=== PATIENT | female | born 1940 | race African-American/Black ===

== ENCOUNTER 2017-04-03 14:43 | Emergency (ER) | payer MEDICARE ==
[2017-04-03 17:36] LABS: Hematocrit 33 % (35-47); Hemoglobin 10.6 g/dl (12.0-16.0); Mean Corpuscular HGB Conc 32 g/dl (31-36); Mean Corpuscular Hemoglobin 29 pg (27-31); Mean Corpuscular Volume 91 fL (80-97); Mean Platelet Volume 11 um3 (7.4-10.4); Red Blood Count 3.62 10^6/ul (4.0-5.4); Red Cell Distribution Width 14 % (10.5-15); White Blood Count 8.4 10^3/ul (3.5-10.8)
[2017-04-03 17:52] LABS: Albumin 3.7 g/dL (3.2-5.2); BUN/Creatinine Ratio 12.4 (8-20); Calcium 9.2 mg/dL (8.6-10.3); EGFR African American 48.3 (>60); EGFR Non-African American 37.6 (>60); Globulin 2.5 g/dL (2-4); Potassium 4.2 mmol/L (3.5-5.0); Total Bilirubin 0.3 mg/dL (0.2-1.0); Total Protein 6.2 g/dL (6.4-8.9)
[2017-04-03] MEDS ORDERED: Lisinopril TAB* 10 MG PO ONE (18:32)
[2017-04-03 19:56] VITALS: BP 165/76
--- NOTE | 2017-04-04 18:14 | ED ---
Deloris Mcmahan Edward, scribed for Ilia Luciano MD on 04/03/17 at 1714 . Hypertension - HPI Summary HPI Summary: 76 y/o female presents to ED with hypertension. Earlier today, an insurance nurse measured her BP to be 180/90, waited, then measured it again to be 200/ 105 and referred the patient to the ED. Assoc sx: blurred vision. Denies ROMERO, ABD pain, diarrhea, dizziness, CP, palpations, constipation, SOB, N/V. Patient is asymptomatic currently. FHx HTN and DM. Patient lives in [facility], an apartment for the elderly. - History of Current Complaint Chief Complaint: EDGeneral Stated Complaint: high blood pressure Time Seen by Provider: 04/03/17 16:06 Hx Obtained From: Patient Onset/Duration: Started Hours Ago - Earlier today Associated Signs & Symptoms: Other: - Blurred visions - Allergies/Home Medications Allergies/Adverse Reactions: Allergies Allergy/AdvReac Type Severity Reaction Status Date / Time Clopidogrel [From Plavix] Allergy Unknown Unknown Verified 11/25/16 13:22 Reaction Details Home Medications: Home Medications Albuterol Sulfate [Proair Respiclick] 2 puff INH Q4HR PRN 04/03/17 [History Confirmed 04/03/17] Colchicine* [Colcrys*] 0.6 mg PO DAILY 04/03/17 [History Confirmed 04/03/17] Darbepoetin Alec* [Aranesp Albumin Free*] 60 mcg INJ MONTHLY 04/03/17 [History Confirmed 04/03/17] Diclofenac Sodium (Topical) [Diclofenac Sodium] 1.5 % TOPICAL BID PRN 04/03/17 [ History Confirmed 04/03/17] Doxycycline TAB(NF) [Doxycycline (NF)] 50 mg PO BID 04/03/17 [History Confirmed 04/03/17] Ferrous Sulfate TAB* 325 mg PO BID 04/03/17 [History Confirmed 04/03/17] Fluticasone-Salmeterol 250-50* [Advair Diskus 250-50*] 1 puff INH BID 04/03/17 [ History Confirmed 04/03/17] Hydroxychloroquine TAB* [Plaquenil TAB*] 200 mg PO DAILY 04/03/17 [History Confirmed 04/03/17] Insulin Lispro [Humalog Kwikpen] 3 - 6 units SUBCUT 1200 04/03/17 [History Confirmed 04/03/17] Insulin Lispro [Humalog Kwikpen] 6 - 8 units SUBCUT .AT DINNER 04/03/17 [ History Confirmed 04/03/17] Insulin NPH (Human) (Isophane) [Humulin N Kwikpen] 20 unit SUBCUT QPM 04/03/17 [ History Confirmed 04/03/17] Insulin NPH (Human) (Isophane) [Humulin N Kwikpen] 25 unit SUBCUT QAM 04/03/17 [ History Confirmed 04/03/17] Lisinopril TAB* [Prinivil TAB*] 10 mg PO DAILY 04/03/17 [History Confirmed 04/03] Mometasone Furoate [Elocon] 0.1 % TOPICAL TID PRN 04/03/17 [History Confirmed ] Oxybutynin TAB* [Ditropan TAB*] 10 mg PO DAILY 04/03/17 [History Confirmed 04/03] Ranitidine TAB (NF) [Zantac TAB (NF)] 300 mg PO DAILY 04/03/17 [History Confirmed 04/03/17] PMH/Surg Hx/FS Hx/Imm Hx Previously Healthy: No Endocrine/Hematology History: Reports: Hx Anticoagulant Therapy - aggrenox, Hx Diabetes, Hx Anemia Denies: Hx Thyroid Disease Cardiovascular History: Reports: Hx Angina, Hx Hypertension, Hx Peripheral Vascular Disease, Other Cardiovascular Problems/Disorders - "bleeding around my heart" Denies: Hx Coronary Artery Disease, Hx Hypercholesterolemia, Hx Myocardial Infarction, Hx Pacemaker/ICD, Hx Valvular Heart Disease Respiratory History: Reports: Hx Asthma, Hx Pulmonary Embolism, Hx Sleep Apnea, Other Respiratory Problems/Disorders Denies: Hx Chronic Obstructive Pulmonary Disease (COPD) GI History: Denies: Hx Ulcer History: Reports: Other Problems/Disorders - KIDNEY DISEASE Musculoskeletal History: Reports: Hx Arthritis - OSTEOARTHRITIS, Hx Rheumatoid Arthritis, Hx Back Problems - low back pain Sensory History: Reports: Hx Contacts or Glasses Denies: Hx Hearing Aid Opthamlomology History: Reports: Hx Contacts or Glasses Neurological History: Reports: Hx Headaches Psychiatric History: Denies: Hx Panic Disorder - Cancer History Hx Chemotherapy: No Hx Radiation Therapy: No - Surgical History Surgery Procedure, Year, and Place: R TKR, LOWER BACK SURGERY, UPPER BACK SURGERY, HYSTERECTOMY, BILAT CATARACS,. CARPAL TUNNEL, ABDOMINAL TUMOR REMOVED , R PINKY TOE I AND D, THORACENTESIS March, CARDIAC CATHERIZATION 04/29, NASAL SURGERY JUL 2012 Hx Anesthesia Reactions: No Infectious Disease History: No Infectious Disease History: Denies: Hx Hepatitis, Hx Human Immunodeficiency Virus (HIV), History Other Infectious Disease, Traveled Outside the [place] in Last 30 Days - Family History Known Family History: Positive: Hypertension - Mother's side, Diabetes - Father' s side - Social History Occupation: Retired Lives: At [facility] [employer] - apartment for the elderly Alcohol Use: None Substance Use Type: Reports: None Smoking Status (MU): Never Smoked Tobacco Have You Smoked in the Last Year: No Review of Systems Constitutional: Negative Positive: Blurred Vision ENT: Negative Cardiovascular: Negative Negative: Palpitations, Chest Pain Respiratory: Negative Negative: Shortness Of Breath Gastrointestinal: Negative Positive: Other - negative constipation. Negative: Abdominal Pain, Vomiting, Diarrhea, Nausea Genitourinary: Negative Musculoskeletal: Negative Skin: Negative Neurological: Negative, Other - Negative dizziness Negative: Headache Psychological: Normal All Other Systems Reviewed And Are Negative: Yes Physical Exam - Summary Physical Exam Summary: VITAL SIGNS:~Reviewed. GENERAL:~ Patient is an obese female who is lying comfortable in the stretcher. ~ Patient is not in any acute respiratory distress. HEAD AND FACE:~No signs of trauma.~ No ecchymosis, hematomas or skull depressions. No sinus tenderness. EYES:~PERRLA, EOMI x 2, No injected conjunctiva, no nystagmus. EARS:~Hearing grossly intact. Ear canals and tympanic membranes are within normal limits. MOUTH:~Oropharynx within normal limits. NECK:~Supple, trachea is midline, no adenopathy, no JVD, no carotid bruit, no c- spine tenderness, neck with full ROM. CHEST:~Symmetric, no tenderness at palpation LUNGS:~Clear to auscultation bilaterally. No wheezing or crackles. CVS:~Regular rate and rhythm, S1 and S2 present, no murmurs or gallops appreciated. ABDOMEN:~Soft, non-tender. No signs of distention. No rebound no guarding, and no masses palpated. Bowel sounds are normal. EXTREMITIES:~FROM in all major joints, no edema, no cyanosis or clubbing. NEURO:~Alert and oriented x 3. No acute neurological deficits. Speech is normal and follows commands. SKIN:~Dry and warm Triage Information Reviewed: Yes Vital Signs On Initial Exam: Initial Vitals Temp Pulse Resp BP Pulse Ox 97.5 F 69 20 160/66 100 04/03/17 14:45 04/03/17 14:45 04/03/17 14:45 04/03/17 14:45 04/03/17 14:45 Vital Signs Reviewed: Yes - Franny Coma Scale Coma Scale Total: 15 Diagnostics - Vital Signs Vital Signs Temp Pulse Resp BP Pulse Ox 04/03/17 14:50 97.3 F 68 20 160/66 100 04/03/17 14:45 97.5 F 69 20 160/66 100 - Laboratory Lab Results: Lab Results 04/03/17 04/03/17 Range/Units 17:15 17:15 WBC 8.4 (3.5-10.8) 10^3/ul RBC 3.62 L (4.0-5.4) 10^6/ul Hgb 10.6 L (12.0-16.0) g/dl Hct 33 L (35-47) % MCV 91 (80-97) fL MCH 29 (27-31) pg MCHC 32 (31-36) g/dl RDW 14 (10.5-15) % Plt Count 150 (150-450) 10^3/ul MPV 11 H (7.4-10.4) um3 Neut % (Auto) 63.9 (38-83) % Lymph % (Auto) 17.5 L (25-47) % [place] % (Auto) 13.3 H (1-9) % Eos % (Auto) 4.5 (0-6) % Baso % (Auto) 0.8 (0-2) % Absolute Neuts (auto) 5.4 (1.5-7.7) 10^3/ul Absolute Lymphs (auto) 1.5 (1.0-4.8) 10^3/ul Absolute Monos (auto) 1.1 H (0-0.8) 10^3/ul Absolute Eos (auto) 0.4 (0-0.6) 10^3/ul Absolute Basos (auto) 0.1 (0-0.2) 10^3/ul Absolute Nucleated RBC 0.01 10^3/ul Nucleated RBC % 0.1 Sodium 136 (133-145) mmol/L Potassium 4.2 (3.5-5.0) mmol/L Chloride 103 (101-111) mmol/L Carbon Dioxide 30 (22-32) mmol/L Anion Gap 3 (2-11) mmol/L BUN 17 (6-24) mg/dL Creatinine 1.37 H (0.51-0.95) mg/dL Est GFR ( Amer) 48.3 (>60) Est GFR (Non-Af Amer) 37.6 (>60) BUN/Creatinine Ratio 12.4 (8-20) Glucose 98 (70-100) mg/dL Calcium 9.2 (8.6-10.3) mg/dL Total Bilirubin 0.30 (0.2-1.0) mg/dL AST 12 L (13-39) U/L ALT 7 (7-52) U/L Alkaline Phosphatase 65 (34-104) U/L Total Protein 6.2 L (6.4-8.9) g/dL Albumin 3.7 (3.2-5.2) g/dL Globulin 2.5 (2-4) g/dL Albumin/Globulin Ratio 1.5 (1-3) Result Diagrams: 04/03/17 17:15 04/03/17 17:15 Lab Statement: Any lab studies that have been ordered have been reviewed, and results considered in the medical decision making process. - EKG 1 EKG Interpretation: 14:56 - NSR @ 66 bpm, no ST elevations Hypertension Course/Dx - Course Assessment/Plan: 76 y/o female presents to ED with hypertension. Earlier today, an insurance nurse measured her BP to be 180/90, waited, then measured it again to be 200/105 and referred the patient to the ED. Assoc sx: blurred vision. Denies ROMERO, ABD pain, diarrhea, dizziness, CP, palpations, constipation, SOB, N/ V. Patient is asymptomatic currently. FHx HTN and DM. Patient lives in [facility], an apartment for the elderly. Test results show chronic anemia and chronic elevated creatinine of 1.37. EKG shows NSR with no ST elevation. In the ED course, BP remained at baseline. Patient has no complaints and is asymptomatic. She will be discharged home with a follow up with her PCP. For better control of BP, she was given 1 dose of Lisinopril. I discussed all the findings and test results with the patient. Patient was instructed to return to the emergency room immediately if any of the symptoms return or worsens. Plan of care was discussed with the patient and understands and agrees. All questions were answered at patient satisfaction. There were no further complaints or concerns. Lung exam before discharge: CTA B/L. Good air exchange. No wheezing or crackles heard. CVS: S1 and S2 present. No murmurs appreciated. Patient is alert and oriented x 3. Patient is hemodynamically stable. Patient will be discharged home with follow up PCP in the next 2-3 days - Diagnoses Differential Diagnosis/HQI PQRI: Hypertension Provider Diagnoses: Uncontrolled hypertension Discharge - Discharge Plan Condition: Stable Disposition: HOME Patient Education Materials: Hypertension (ED) Referrals: Virgilio Zuleta MD [Primary Care Provider] - 3 Days The documentation as recorded by the Deloris vasquez Edward accurately reflects the service I personally performed and the decisions made by me, Ilia Luciano MD.
== END 2017-04-03 19:30 | disposition home or self-care (01) ==
LOC: ED 14:43
DX: I10 Essential (primary) hypertension (principal); I73.9 Peripheral vascular disease, unspecified; Z79.01 Long term (current) use of anticoagulants; M06.9 Rheumatoid arthritis, unspecified; M19.90 Unspecified osteoarthritis, unspecified site; J45.909 Unspecified asthma, uncomplicated; Z79.4 Long term (current) use of insulin; E11.9 Type 2 diabetes mellitus without complications
CPT/HCPCS: 36415; 80053; 85025; 93005; 99281; A9270-GY

== ENCOUNTER 2017-05-19 16:09 | Emergency (ER) | payer MEDICARE ==
[2017-05-19] MEDS ORDERED: Aspirin Low Dose CHEW TAB* 81 MG PO ONE (17:43)
--- NOTE | 2017-05-19 18:08 | RAD ---
INDICATION: Chest pain COMPARISON: January 27, 2016 TECHNIQUE: An AP portable view obtained at 1743 hours is submitted. FINDINGS: Bones/Soft Tissues: There are no acute bony findings. Cardiomediastinal: The cardiomediastinal silhouette is normal. Lungs: There are no infiltrates. Pleura: There are no pleural effusions. Other: None IMPRESSION: NO ACTIVE DISEASE.
--- NOTE | 2017-05-19 18:16 | ED ---
Deloris Mcmahan Edward, scribed for Juliana Fitzgerald MD on 05/19/17 at 1733 . HPI Chest Pain - HPI Summary HPI Summary: 76 y/o female presents to ED c/o severe CP starting last night. Last night the CP was located on the L side and did not radiate to the jaw or the back. Patient also gets chronic, daily CP in the morning located at the mid-sternal region. Her last bout of CP was at 09:00 this morning. The CP has resolved now. Associated sx: chronic cough. Denies fever, chills. PMHx HTN, HLD, and DM. No previous WY's. No FHx WY's. live alone. former smoke, HTN, HLD, DM. No previous WY. No Stents. FHx - no WY. Last stress test within 2 years. - History of Current Complaint Chief Complaint: EDChestPainROMI Time Seen by Provider: 05/19/17 17:21 Hx Obtained From: Patient Onset/Duration: Started Hours Ago - This morning and last night, Resolved Pain Intensity: 0 Chest Pain Radiates: No Associated Signs and Symptoms: Positive: Chest Pain, Cough - chronic. Negative : Fever, Chills - Additional Pertinent History Primary Care Physician: [id number] - Allergy/Home Medications Allergies/Adverse Reactions: Allergies Allergy/AdvReac Type Severity Reaction Status Date / Time Clopidogrel [From Plavix] Allergy Unknown Unknown Verified 11/25/16 13:22 Reaction Details PMH/Surg Hx/FS Hx/Imm Hx Previously Healthy: No Endocrine/Hematology History: Reports: Hx Anticoagulant Therapy - aggrenox, Hx Diabetes, Hx Anemia Denies: Hx Thyroid Disease Cardiovascular History: Reports: Hx Angina, Hx Hypertension, Hx Peripheral Vascular Disease, Other Cardiovascular Problems/Disorders - "bleeding around my heart" Denies: Hx Coronary Artery Disease, Hx Hypercholesterolemia, Hx Myocardial Infarction, Hx Pacemaker/ICD, Hx Valvular Heart Disease Respiratory History: Reports: Hx Asthma, Hx Pulmonary Embolism, Hx Sleep Apnea, Other Respiratory Problems/Disorders Denies: Hx Chronic Obstructive Pulmonary Disease (COPD) GI History: Denies: Hx Ulcer History: Reports: Other Problems/Disorders - KIDNEY DISEASE Musculoskeletal History: Reports: Hx Arthritis - OSTEOARTHRITIS, Hx Rheumatoid Arthritis, Hx Back Problems - low back pain Sensory History: Reports: Hx Contacts or Glasses Denies: Hx Hearing Aid Opthamlomology History: Reports: Hx Contacts or Glasses Neurological History: Reports: Hx Headaches Psychiatric History: Denies: Hx Panic Disorder - Cancer History Hx Chemotherapy: No Hx Radiation Therapy: No - Surgical History Surgery Procedure, Year, and Place: R TKR, LOWER BACK SURGERY, UPPER BACK SURGERY, HYSTERECTOMY, BILAT CATARACS,. CARPAL TUNNEL, ABDOMINAL TUMOR REMOVED , R PINKY TOE I AND D, THORACENTESIS March, CARDIAC CATHERIZATION 04/29, NASAL SURGERY JUL 2012 Hx Anesthesia Reactions: No Infectious Disease History: No Infectious Disease History: Denies: Hx Hepatitis, Hx Human Immunodeficiency Virus (HIV), History Other Infectious Disease, Traveled Outside the [place] in Last 30 Days - Family History Known Family History: Positive: Hypertension - Mother's side, Diabetes - Father' s side - Social History Lives: Alone Alcohol Use: None Hx Substance Use: No Substance Use Type: Reports: Prescribed Hx Tobacco Use: Yes Smoking Status (MU): Former Smoker Type: Cigarettes Have You Smoked in the Last Year: No Review of Systems Constitutional: Negative Eyes: Negative ENT: Negative Positive: Chest Pain Positive: Cough - chronic Gastrointestinal: Negative Genitourinary: Negative Musculoskeletal: Negative Skin: Negative Neurological: Negative Psychological: Normal All Other Systems Reviewed And Are Negative: Yes Physical Exam Triage Information Reviewed: Yes Vital Signs On Initial Exam: Initial Vitals Temp Pulse Resp BP Pulse Ox 98.2 F 65 20 177/73 97 05/19/17 16:10 05/19/17 16:10 05/19/17 16:10 05/19/17 16:10 05/19/17 16:10 Vital Signs Reviewed: Yes Appearance: Positive: Well-Appearing, No Pain Distress Skin: Positive: Warm, Skin Color Reflects Adequate Perfusion, Dry Eyes: Positive: EOMI, KEYA ENT: Positive: Pharynx normal, TMs normal Neck: Positive: Supple, Nontender Respiratory/Lung Sounds: Positive: Clear to Auscultation, Breath Sounds Present. Negative: Rales, Rhonchi, Wheezes Cardiovascular: Positive: RRR. Negative: Murmur, Rub, Other - no gallop Abdomen Description: Positive: Nontender, Soft. Negative: Distended, Guarding, Other: - no rebound Bowel Sounds: Positive: Present Musculoskeletal: Positive: Strength/ROM Intact. Negative: Edema Left, Edema Right Neurological: Positive: Sensory/Motor Intact, Alert, Oriented to Person Place, Time, CN Intact II-III Psychiatric: Positive: Affect/Mood Appropriate Diagnostics - Vital Signs Vital Signs Temp Pulse Resp BP Pulse Ox 05/19/17 16:59 98.1 F 66 16 177/73 98 05/19/17 16:10 98.2 F 65 20 177/73 97 - Laboratory Lab Statement: Any lab studies that have been ordered have been reviewed, and results considered in the medical decision making process. - Radiology CXR Xray Interpretation: No Acute Changes - NO ACTIVE DISEASE Radiology Interpretation Completed By: Radiologist - EKG 1 EKG Rhythm: Sinus Rhythm - @ 64 bpm EKG Interpretation: 16:30 EKG Comparison: No Significant Change - 04/03/17 Chest Pain Course/Dx - Course Course Of Treatment: 76 yo female with cp overnight and at 8am this morning. Pt is awaiting a trop which at this point is at least 10 hours, if neg, she gets regular stress tests and is safe for discharge. - Diagnoses Provider Diagnoses: Chest pain Discharge - Discharge Plan Condition: Stable Disposition: OTHER Discharge Disposition Comment: to be determined The documentation as recorded by the Deloris vasquez Edward accurately reflects the service I personally performed and the decisions made by me, Juliana Fitzgerald MD.
[2017-05-19 19:43] LABS: Hematocrit 31 % (35-47); Hemoglobin 10.1 g/dl (12.0-16.0); Mean Corpuscular HGB Conc 33 g/dl (31-36); Mean Corpuscular Hemoglobin 31 pg (27-31); Mean Corpuscular Volume 93 fL (80-97); Mean Platelet Volume 10 um3 (7.4-10.4); Red Blood Count 3.32 10^6/ul (4.0-5.4); Red Cell Distribution Width 15 % (10.5-15); White Blood Count 7.9 10^3/ul (3.5-10.8)
[2017-05-19 19:47] LABS: Anion Gap 11 mmol/L (2-11); EGFR African American 51.4 (>60); EGFR Non-African American 39.9 (>60); POC CO2 Carbon Dioxide 28 mmol/L (24-29); POC Chloride 102 mmol/L (98-109); POC Glucose 132 mg/dL (70-105); POC Sodium 141 mmol/L (138-146)
[2017-05-19 19:49] LABS: Manual Entry Verification CAR0052
[2017-05-19 20:01] LABS: Troponin I 0.01 ng/mL (<0.04)
[2017-05-19 21:41] VITALS: BP 195/63
[2017-05-19 22:12] LABS: Albumin 3.4 g/dL (3.2-5.2); BUN/Creatinine Ratio 10.7 (8-20); Calcium 8.8 mg/dL (8.6-10.3); EGFR African American 55.3 (>60); Globulin 2.5 g/dL (2-4); Total Bilirubin 0.3 mg/dL (0.2-1.0); Total Protein 5.9 g/dL (6.4-8.9)
== END 2017-05-19 21:41 ==
LOC: ED 16:09
DX: R07.9 Chest pain, unspecified (principal); M06.9 Rheumatoid arthritis, unspecified; I10 Essential (primary) hypertension; I25.2 Old myocardial infarction; Z95.810 Presence of automatic (implantable) cardiac defibrillator; Z87.891 Personal history of nicotine dependence
CPT/HCPCS: 36415; 71010; 80048; 80053; 83605; 84484; 85025; 93005; 99283

== ENCOUNTER 2019-01-02 08:26 | Emergency (ER) | payer MEDICARE ==
[2019-01-02] MEDS ORDERED: Acetaminophen TAB* 325 MG PO ONE (08:35)
--- NOTE | 2019-01-02 09:04 | ED ---
Adult Trauma - HPI Summary HPI Summary: Patient is a 78-year-old female who lives alone presenting to the ED after a fall this morning while attempting to use the restroom. She states she usually uses a walker at home, however she did not use her walker. She states she called EMS because she was unable to get up to go to the bathroom. On arrival, she states she did not hit her head, denies headache and denies any other injuries. She denies any confusion, memory loss, abdominal pain or extremity pain. She states she has not been sick recently. She states she gets around well at home typically prior self, however her son and her are looking into assisted for her. She states she recalls the fall and denies LOC. - History of Current Complaint Chief Complaint: EDExtremityLower Stated Complaint: PER EMT "FELL" Time Seen by Provider: 01/02/19 08:30 Hx Obtained From: Patient ?: No Mechanism of Injury: Blunt Trauma Ambulatory at the Scene: No Force: Low Onset/Duration: Started Hours Ago Onset of Pain: Immediate Onset Severity: Mild Current Severity: Mild Pain Intensity: 7 Character: Aching Alleviating Factor(s): Nothing Associated Signs & Symptoms: Positive: Negative - Additional Pertinent History Primary Care Physician: [id number] - Allergy/Home Medications Allergies/Adverse Reactions: Allergies Allergy/AdvReac Type Severity Reaction Status Date / Time clopidogrel [From Plavix] Allergy Unknown Verified 01/02/19 08:31 Reaction Details PMH/Surg Hx/FS Hx/Imm Hx Previously Healthy: Yes Endocrine/Hematology History: Reports: Hx Anticoagulant Therapy - aggrenox, Hx Diabetes, Hx Anemia Denies: Hx Thyroid Disease Cardiovascular History: Reports: Hx Angina, Hx Hypertension, Hx Peripheral Vascular Disease, Other Cardiovascular Problems/Disorders - "bleeding around my heart" Denies: Hx Coronary Artery Disease, Hx Hypercholesterolemia, Hx Myocardial Infarction, Hx Pacemaker/ICD, Hx Valvular Heart Disease Respiratory History: Reports: Hx Asthma, Hx Pulmonary Embolism, Hx Sleep Apnea, Other Respiratory Problems/Disorders Denies: Hx Chronic Obstructive Pulmonary Disease (COPD) GI History: Denies: Hx Ulcer History: Reports: Other Problems/Disorders - KIDNEY DISEASE Musculoskeletal History: Reports: Hx Arthritis - OSTEOARTHRITIS, Hx Rheumatoid Arthritis, Hx Back Problems - low back pain Sensory History: Reports: Hx Contacts or Glasses Denies: Hx Hearing Aid Opthamlomology History: Reports: Hx Contacts or Glasses Neurological History: Reports: Hx Headaches Psychiatric History: Denies: Hx Panic Disorder - Cancer History Hx Chemotherapy: No Hx Radiation Therapy: No - Surgical History Surgery Procedure, Year, and Place: R TKR, LOWER BACK SURGERY, UPPER BACK SURGERY, HYSTERECTOMY, BILAT CATARACS,. CARPAL TUNNEL, ABDOMINAL TUMOR REMOVED , R PINKY TOE I AND D, THORACENTESIS March, CARDIAC CATHERIZATION 04/29, NASAL SURGERY JUL 2012 Hx Anesthesia Reactions: No - Immunization History Hx Pertussis Vaccination: No Immunizations Up to Date: Yes Infectious Disease History: No Infectious Disease History: Denies: Hx Hepatitis, Hx Human Immunodeficiency Virus (HIV), History Other Infectious Disease, Traveled Outside the [place] in Last 30 Days - Family History Known Family History: Positive: Hypertension - Mother's side, Diabetes - Father' s side - Social History Occupation: Unemployed Lives: Alone Alcohol Use: None Hx Substance Use: No Substance Use Type: Reports: Prescribed Hx Tobacco Use: Yes Smoking Status (MU): Former Smoker Type: Cigarettes Have You Smoked in the Last Year: No Review of Systems Constitutional: Negative Negative: Fever, Chills, Fatigue, Skin Diaphoresis Negative: Palpitations, Chest Pain Negative: Shortness Of Breath, Cough Negative: Vomiting Positive: Arthralgia - left knee pain Skin: Negative Negative: Headache, Weakness, Paresthesia, Numbness, Syncope All Other Systems Reviewed And Are Negative: Yes Physical Exam Triage Information Reviewed: Yes Vital Signs On Initial Exam: Initial Vitals Temp Pulse Resp BP Pulse Ox 97 F 64 18 178/80 98 01/02/19 08:01/02/19 08:01/02/19 08:01/02/19 08:01/02/19 08:31 Vital Signs Reviewed: Yes Appearance: Positive: Well-Appearing, Well-Nourished Skin: Positive: Warm, Skin Color Reflects Adequate Perfusion Head/Face: Positive: Normal Head/Face Inspection Eyes: Positive: EOMI, KEYA, Conjunctiva Clear Neck: Positive: Supple, No Lymphadenopathy Respiratory/Lung Sounds: Positive: Clear to Auscultation, Breath Sounds Present Cardiovascular: Positive: RRR, Pulses are Symmetrical in both Upper and Lower Extremities Musculoskeletal: Positive: Normal, Strength/ROM Intact Neurological: Positive: Sensory/Motor Intact, Alert, Oriented to Person Place, Time Psychiatric: Positive: Normal, Affect/Mood Appropriate AVPU Assessment: Alert Diagnostics - Vital Signs Vital Signs Temp Pulse Resp BP Pulse Ox 01/02/19 08:31 97 F 64 18 178/80 98 - Laboratory Lab Statement: Any lab studies that have been ordered have been reviewed, and results considered in the medical decision making process. Adult Trauma Course/Dx - Course Course Of Treatment: Patient is evaluated for a possible fall home. She was calling the EMS due to not being able to get up from the floor. She denies hitting her head and denies any other injuries. Physical examination, there are no signs of trauma, patient is alert and oriented and smiling. She appears to be at her baseline. Upper extremities without discomfort with flexion and extension of the shoulders, elbows and wrists. Flexion of the left knee with discomfort. This could be at her baseline, however an x-ray of the left knee is obtained. Lungs are CTA, RRR. Patient denies blood thinners, however takes baby aspirin daily. Her son was called at 8:30 AM to make aware she was here in the ED. son is at bedside at this time. Knee x-ray obtained and is WNL other than some osteoarthritis. Patient states she is feeling improved and would like to be discharged home. No other significant abnormalities. Glucose obtained is 195. - Diagnoses Differential Diagnosis/HQI/PQRI: Positive: Contusion(s), Sprain, Strain Provider Diagnoses: Left knee pain, Fall Discharge - Sign-Out/Discharge Documenting (check all that apply): Patient Departure Patient Received Moderate/Deep Sedation with Procedure: No - Discharge Plan Condition: Stable Disposition: HOME Patient Education Materials: Fall Prevention for Older Adults (ED), Knee Pain ( ED) Referrals: Virgilio Zuleta MD [Primary Care Provider] - Additional Instructions: Please continue to follow up with your PCP Tylenol as needed - Billing Disposition and Condition Condition: STABLE Disposition: Home
--- OUTSIDE RECORDS SUMMARY | 2019-01-02 09:05 | XMS REPORT | Continuity of Care Document ---
:1940 External Reference #:[id number] Author Name [facility] Care Team Providers Name Role Phone Steve Banuelos MD Care Team Information Burial Needs Salesperson Unavailable Virgilio Zuleta MD Primary Care Physician Unavailable Payers Date Identification Numbers Payment Provider Subscriber Policy Number: [id number] Medicare Blue o Srini Jeffries PayID: [id number] [address] [address] [place] [address] Advance Directives Description No Information Available Problems Date Description Provider Status Onset: 08/19/2014 Coronary arteriosclerosis Nadine Moctezuma M.D. Active Onset: 08/19/2014 Pure hypercholesterolemia Nadine Moctezuma M.D. Active Onset: 08/19/2014 Benign essential hypertension Nadine Moctezuma M.D. Active Onset: 08/30/2014 Obstructive sleep apnea syndrome Teresa Veliz MD Active Onset: 09/13/2014 Diabetic polyneuropathy Adrian Salgado M.D. Active Onset: 09/13/2014 Sjogren's syndrome Adrian Salgado M.D. Active Onset: 09/13/2014 Degenerative joint disease involving Adrian Salgado M.D. Active multiple joints Onset: 09/13/2014 Low back pain Adrian Salgado M.D. Active Onset: 09/13/2014 Pain in limb Adrian Salgado M.D. Active Onset: 09/13/2014 Myalgia & Myositis Unspecified Adrian Salgado M.D. Active Onset: 09/29/2014 Bursitis Adrian Salgado M.D. Active Onset: 03/24/2015 Carpal tunnel syndrome Kimberli Watters M.D. Active Onset: 03/24/2015 Hip pain Kimberli Watters M.D. Active Onset: 05/24/2015 Enthesopathy of hip region Jeremias Rojo M.D. Active Onset: 05/29/2015 Chronic pain syndrome Stephan Mott M.D. Active Onset: 05/29/2015 Disorder of lumbar disc Stephan Mott M.D. Active Onset: 08/07/2015 Essential hypertension Nadine Moctezuma M.D. Active Onset: 08/07/2015 Atherosclerotic heart disease of Nadine Moctezuma M.D. Active [place] coronary artery with unspecified angina pectoris Onset: 08/07/2015 Type 2 diabetes mellitus with Nadine Moctezuma M.D. Active diabetic neuropathy, unspecified Onset: 09/20/2015 Enthesopathy of knee Jeremias Rojo M.D. Active Onset: 11/29/2015 Morbid obesity Teresa Veliz MD Active Onset: 11/29/2015 Gastroesophageal reflux disease Teresa Veliz MD Active Onset: 02/27/2016 Obesity Teresa Veliz MD Active Family History Date Family Member(s) Observation Comments General no autoimmune illnesses reported Father Diabetes Mother Hypertension Social History Type Date Description Comments Sex Unknown Marital Status Lives With Alone Lives With in a somewhat assisted [facility] living situation Occupation Retired Tobacco Use Start: Unknown End: Former Cigarette Smoker Unknown Smoking Status Reviewed: 12/18/18 Former Cigarette Smoker ETOH Use Denies alcohol use Tobacco Use Start: Unknown End: Patient is a former quit in 2003 Unknown smoker Recreational Drug Use Denies Drug Use Exercise Type/Frequency Exercises regularly trying to get exercise Allergies, Adverse Reactions, Alerts Date Description Reaction Status Severity Comments 05/03/2014 Plavix weakness Active 02/05/2016 Environmental Active Trees, grass, dust 02/05/2016 Cat Dander Active per patient 02/05/2016 Dog Dander Active per patient Medications Medication Date Status Form Strength Qnty SIG Indications Ordering Provider Bupropion 12/09 Active Tablets ER 200mg 30tab 1 by Zsofia Hydrochloride /2018 12HR s mouth Michael, (SR) every day LABEL STITCHER Nasonex 12/05 Active Suspension 50mcg/Act 17gm 2 sprays J30.9 Zsofi ramonita each Michael, side LABEL STITCHER twice daily Diclofenac Sodium 02/04 Active Solution 1.5% 150un apply 15 M25.569 Zsofia its drops to Michael, knees 2x LABEL STITCHER daily Prevident 5000 Dry 02/04 Active Gel 1.1% 100ml use daily M35.00 Zsofia Mouth in the Michael, evenings LABEL STITCHER (pt is not using regularly ) Isosorbide 11/24 Active Tablets ER 30mg 90tab 1 by Merlyn Mononitrate ER 24HR s mouth MD Virgilio every day Ranitidine HCL 11/20 Active 300mg 1 table Merlyn, po daily MD Virgilio Automatic Blood 02/15 Active Kit 1 kit R07.9 Nadine Pressure Monitor large Rhianna, cuff M.DSuzi Aspirin Low 02/02 Active Chewtabs 81mg 1 tablet Unknown Strength po daily Ranexa 01/29 Active Tablets ER 500mg 180ta 1 by Nadine 12HR bs mouth Rhianna, twice a M.D. day Wrist 12/18 Active 1unit right Kimberli M. Immobulization s hand dx: Osmar Watters g56.01 M.DSuzi Hydroxychloroquine 11/28 Active Tablets 200mg 90tab take one M35.00 Zsofia Sulfate s tablet by Michael, mouth LABEL STITCHER daily Z79.899 Gabapentin 06/16/2014 Active Tablets 600mg 90tabs Take 3 E11.40 Kimberli M. Tablets By Isidro Watters M.D. Every Day as Directed Aranesp 05/09/2014 Active Solution 60mcg/ 1units sc q4 Ad Kahn (Albumin Free) ML weeks (pt [place], not using) Nadya, [facility] Atorvastatin Active Tablets 20mg 90tabs take 1 Unknown Calcium tablet at bedtime Fluticasone Active Suspension 50mcg/ 16units 2 sprays Unknown Propionate Act each nostril daily( used seasonal fall, winter, spring) as needed Trazodone HCL Active Tablets 50mg 30tabs 1 tablet Unknown at bedtime Hydrocodone-Ac Active 10-325 1 po Am,1 Unknown etaminophen po PM prn Nitrostat Active Tablets Sub 0.4mg 25tabs one sl Unknown q5min up to 3 doses as needed Cpap Active Device for use Unknown nightly for sleep apnea Proair HFA Active Aerosol 108(90 inhale 2 Unknown Base) puffs q mcg/Ac 2-4h prn t Albuterol Active Nebulizer (2.5mg 100unit 1 vial via Unknown Sulfate /3ML) s nebulizer 0.083% 4 times daily as needed Miralax Active Powder 3350NF 238gm 17 gm Unknown every day mixed w/ 8 oz water/juic e daily as needed Diabetic Active Cream Apply to Unknown Neuropathy both feet Cream (OTC) bid Fiber Select Active Chewtabs 120unit 2 chewtabs Unknown Gummies s by mouth daily Betaxalol Active Solution 0.5% 1 gtt in Unknown each eye twice daily Refresh Tears Active 0.5% 1 gtt both Unknown eyes twice daily Losartan Active Tablets 25mg Take 1 Unknown Potassium Tablet By Mouth Every Day Metoprolol Active Tablets ER 25mg Take 1 Unknown Succinate ER 24HR Tablet By Mouth Every Day Loratadine Active Tablets 10mg Take 1 Unknown Tablet By Mouth Every Day as needed for allergy symptoms Advair HFA Active Aerosol 115-21 Inhale 2 Unknown mcg/Ac Puffs By t Mouth Two Times Daily Via Aerochambe r, Rinse Mouth After Use Travatan Z Active Solution 0.004% Instill 1 Unknown Drop In The Right Eye Once Every Night Before Bedtime Bupropion HCL 07/11/2017 - Hx Tablets ER 200mg 30tabs 1 by mouth Zsofia ER (SR) 12/09/2018 12HR every day IRASEMA Rodriguez Bupropion HCL 06/30/2017 - Hx Tablets ER 200mg 1 by mouth Zsofia ER (SR) 06/30/2017 12HR every day IRASEMA Rodriguez Bupropion HCL 06/30/2017 - Hx Tablets ER 100mg 30tabs take one Zsofia ER (SR) 07/11/2017 12HR tablet by Michael, mouth LABEL STITCHER daily Budeprion SR 06/06/2017 - Hx Tablets ER 100mg 30tabs 1 tab po F43.23 Zsofia 12/17/2018 12HR qday (pt Michael, not using) LABEL STITCHER R79.89 Labetalol HCL 01/12/2017 - Hx Tablets 200mg 180tabs 1/2 tablet po Merlyn, 12/17/2018 twice daily MD Virgilio Am/PM Doxycycline 12/17/2016 - Hx 50mg Take 1 cap by Merlyn Hyclate 08/08/2017 mouth two MD Virgilio timedaily for 1 week then take 1 cap po daily Lisinopril 11/22/2016 - Hx Tablets 10mg 90tabs 1 by mouth Nadine Moctezuma , 12/17/2018 every day, M.D. take in the evening. (pt taking in the morning) Colchicine 02/05/2016 - Hx Tablets 0.6mg 30tabs 1 tablet R07. Nadine Moctezuma, 12/17/2018 daily. (pt 9 M.D. not using) Zantac 11/29/2015 - Hx Tablets 300mg 90tabs 1 tab by K21. Teresa 04/19/2016 mouth every 9 MD Jose Alfredo day every night Lidocaine 05/30/2015 - Hx Patches 5% 30units apply to 722. Stephan 11/21/2016 affected 93 Nadya Mott areas 12 hours on/12 hours off as needed 715.09 Hydroxychloroquine 09/13/2014 - Hx Tablets 200mg 60tabs 1 by mouth Stephan Sulfate 04/23/2015 twice a Nadya Mott day Centrum Silver - Hx Tablets 1 by mouth Unknown 08/23/2015 every day Iron Supplement - Hx Tablets 325(65F 90tabs by mouth Unknown 12/10/2016 e) mg every day Montelukast Sodium - Hx Tablets 10mg 90tabs 1 by mouth Unknown 11/21/2016 every day Lisinopril - Hx Tablets 40mg 90tabs 1 by mouth Unknown 04/23/2015 every day Aspirin Ec - Hx Tablets DR 81mg 1 by mouth Unknown 08/22/2015 every day Levocetirizine - Hx Tablets 5mg 90tabs 1 by mouth Unknown 11/21/2016 every day prn Hilary Allergy - Hx Tablets 180mg 1 by mouth Unknown 07/20/2014 every day Systane - Hx Solution 60ml one drop Unknown 05/16/2016 in each eye twice daily plus as needed every 2 hours Betaxolol HCL - Hx Solution 0.5% 1 drop Unknown 05/29/2015 each eye bid prn Citracal - Hx Tablets 1 tab po Unknown 11/21/2016 twice daily Vitamin D3 - Hx 400Iu 1 tablet Unknown 05/16/2016 po daily Vitamin B12 - Hx 1000mcg daily Unknown 08/22/2015 Vitamin C - Hx daily Unknown 05/29/2015 Meclizine HCL - Hx Tablets 25mg 60tabs 1 by mouth Unknown 11/21/2016 three times a day as needed Humalog - Hx 6-8 units Unknown 12/17/2018 before lunch, dinner check blood sugar 4x/day Lantus - Hx Solution 100Unit 2vials Unknown 04/20/2014 /ML Advair Diskus - Hx Aerosol 250-50m 1 puff bid Unknown 09/28/2014 cg/Dose prn Humulin N - Hx Suspension 100Unit 2units as Unknown 08/13/2014 /ML directed bid Hydrochlorothiazide - Hx Tablets 25mg 90tabs 1 by mouth Unknown 07/09/2016 every day Azelastine HCL - Hx Solution 0.15% tid or prn Unknown 11/21/2016 Betoptic-S - Hx Suspension 0.25% 15ml 1 drop Unknown 08/29/2014 both eyes twice a day Voltaren - Hx Gel 1% 1tubes apply to Unknown 08/20/2014 affected area 4 times a day, as needed Benzonatate - Hx Capsules 200mg 40caps take 1 Unknown 08/13/2014 capsule by mouth three times a day Colace - Hx Capsules 100mg 60caps 1 by mouth Unknown 08/23/2014 twice a day Lidoderm - Hx Patches 5% 30units topical q Unknown 05/30/2015 10 hours prn Vitamin B Complex - Hx Tablets 1 by mouth Unknown 05/29/2015 every day Lantus - Hx Solution 100Unit 2vials 16 units Unknown 12/17/2018 /ML sq qam and 16 units q evening Mometasone Furoate - Hx Cream 0.1% 30g apply Unknown 08/20/2014 twice a day for 2-3 weeks max Vitamin B Complex - Hx Tablets 1 by mouth Unknown 11/21/2016 every day Benzonatate - Hx Capsules 200mg one by Unknown 11/21/2016 mouth three times daily as needed for cough Lorcet 10/650 - Hx Tablets 10-650m 1 tablet Unknown 11/21/2016 g po q 6 hours as needed ( pt taking Am/PM every day) Vitamin B 12 - Hx 1000mcg po daily Unknown 08/22/2015 Citracal - Hx 1 by mouth Unknown 08/22/2015 every day Advair Diskus - Hx Aerosol 250-50m 1 puff Unknown 08/06/2015 cg/Dose twice daily (uses seasonal Fall, winter , spring) Hilary Allergy - Hx Tablets 180mg 1 by mouth Unknown 12/17/2018 as needed Vitamin C - Hx Tablets 1000mg 1 by mouth Unknown 11/21/2016 every day Vitamin B-6 - Hx Tablets 50mg 1 by mouth Unknown 12/11/2016 twice every day Ranitidine HCL - Hx Tablets 300mg 60tabs 1 by mouth Nadine 03/28/2016 twice a [place], day M.D. Escitalopram Oxalate - Hx Tablets 5mg 1 tablet Unknown 05/16/2016 po daily Cholecalciferol - Hx Powder 400 Unknown 05/16/2016 units/day Iron - Hx Tablets 325(65F 1 by mouth Unknown 05/16/2016 e) mg every day Lisinopril - Hx Tablets 40mg 1 tablet Shallish, 11/22/2016 po daily ( MD Virgilio Not on pt list , she will call to confirm) Per Dr. Zuleta office is still on this Escitalopram Oxalate - Hx Tablets 10mg 1 by mouth Unknown 11/21/2016 every day Ditropan XL - Hx Tablets ER 5mg 1 by mouth Unknown 11/21/2016 24HR every day Vesicare - Hx 5mg 1 tablet Husseini, 02/03/2017 po daily MD Leonel as directed Iron Supplement - Hx Tablets 325(65F 2 by mouth Shallish, 12/17/2018 e) mg every day MD Virgilio Vitamin B12 - Hx 5000mcg 1 daily Unknown 12/17/2018 Medications Administered in Office Medication Date Status Form Strength Qnty SIG Indications Ordering Provider Inj, 06/19/ Administered Injection Abraham D. Regadenoson, 0.1 2016 Brand, MG M.D. Technetium TC 06/19/ Administered Injection Abraham D. 99M Tetrofosmin, 2016 Brand, Per Unit Dose Up M.D. To 40 Millicuries Technetium TC 06/17/ Administered Injection Nadine 99M Tetrofosmin, 2016 [place], Per Unit Dose Up M.D. To 40 Millicuries Technetium TC 08/16/ Administered Injection Ica 99M Tetrofosmin, 2014 Nuclear Per Unit Dose Up Schedule To 40 Millicuries Inj, 08/15/ Administered Injection Ad Kahn Regadenoson, 0.1 2014 [place], MG M.D., FACC, FASNC Technetium TC 08/15/ Administered Injection Ad Kahn 99M Tetrofosmin, 2014 [place], Per Unit Dose Up M.D., To 40 FACC, Millicuries FASNC Technetium TC 08/15/ Administered Injection Nadine 99M Tetrofosmin, 2014 [place], Per Unit Dose Up M.D. To 40 Millicuries Triamcinolone 09/28/ Administered Injection Adrian (Kenalog) 2013 Nadya Salgado Inj, 05/09/ Administered Injection Ad Kahn Regadenoson, 0.1 2013 MG Nadya Alberts, [facility] Aminophylline 05/09/ Administered Injection Ad Femi 2013 Nadya Alberts, [facility] Technetium TC 05/09/ Administered Injection Ad Kahn 99M Tetrofosmin, 2013 [place], Per Unit Dose Up M.D., To [address] [facility] Immunizations CPT Code Status Date Vaccine Lot # [id number] Given 07/28/2015 Fluvirin Im 3Yrs And Older [id number] Given 08/13/2014 Influenza Virus 3Yrs & Over [id number] Given 08/30/2012 Pneumonia Vaccine Vital Signs Date Vital Result Comment 12/18/2018 1:18pm Height 61.75 inches 5'1.75" Weight 220.00 lb with shoes Heart Rate 60 /min BP Systolic Sitting 140 mmHg Lue lg cuff BP Diastolic Sitting 60 mmHg Lue lg cuff BP Systolic Standing 134 mmHg Lue lg cuff BP Diastolic Standing 60 mmHg Lue lg cuff Respiratory Rate 16 /min BMI (Body Mass Index) 40.6 kg/m2 12/05/2017 10:46am Height 61.75 inches 5'1.75" Weight 229.00 lb Heart Rate 65 /min BP Systolic 122 mmHg BP Diastolic 66 mmHg O2 % BldC Oximetry 97 % BMI (Body Mass Index) 42.2 kg/m2 09/01/2017 10:45am Height 61.75 inches 5'1.75" Weight 243.00 lb Heart Rate 64 /min BP Systolic Sitting 132 mmHg BP Diastolic Sitting 74 mmHg Respiratory Rate 14 /min O2 % BldC Oximetry 98 % BMI (Body Mass Index) 44.8 kg/m2 08/15/2017 9:53am Height 61.75 inches 5'1.75" Weight 236.00 lb without shoes Heart Rate 76 /min BP Systolic Sitting 136 mmHg Lue lg cuff BP Diastolic Sitting 80 mmHg Lue lg cuff BP Systolic Standing 134 mmHg Lue lg cuff BP Diastolic Standing 80 mmHg Lue lg cuff Respiratory Rate 17 /min BMI (Body Mass Index) 43.5 kg/m2 Ejection Fraction 55-60% date 01/28/2016 ECHO 07/11/2017 9:59am Height 61.75 inches 5'1.75" Weight 248.00 lb Heart Rate 64 /min BP Systolic Sitting 145 mmHg BP Diastolic Sitting 83 mmHg Respiratory Rate 16 /min Pain Level 7 BMI (Body Mass Index) 45.7 kg/m2 06/06/2017 12:46pm Height 61.75 inches 5'1.75" Weight 246.38 lb Heart Rate 64 /min BP Systolic Sitting 138 mmHg BP Diastolic Sitting 68 mmHg Body Temperature 98.1 F Pain Level 3 BMI (Body Mass Index) 45.4 kg/m2 02/04/2017 9:55am Height 61.75 inches 5'1.75" Weight 254.50 lb Heart Rate 60 /min BP Systolic Sitting 126 mmHg BP Diastolic Sitting 70 mmHg Respiratory Rate 16 /min Body Temperature 98.3 F Pain Level 6 BMI (Body Mass Index) 46.9 kg/m2 01/21/2017 1:57pm Height 61.75 inches 5'1.75" Weight 248.00 lb Heart Rate 64 /min BP Systolic Sitting 134 mmHg Lue large cuff BP Diastolic Sitting 80 mmHg Lue large cuff BP Systolic Standing 144 mmHg Lue large cuff BP Diastolic Standing 80 mmHg Lue large cuff Respiratory Rate 16 /min BMI (Body Mass Index) 45.7 kg/m2 Ejection Fraction 55-60% echo 01/201601/21/2017 1:51pm Height 61.75 inches 5'1.75" Weight 258.00 lb with shoes BMI (Body Mass Index) 47.6 kg/m2 12/12/2016 1:18pm Height 61.75 inches 5'1.75" Weight 252.00 lb with shoes Heart Rate 66 /min BP Systolic Sitting 128 mmHg Lue large cuff BP Diastolic Sitting 70 mmHg Lue large cuff BP Systolic Standing 114 mmHg Lue large cuff BP Diastolic Standing 70 mmHg Lue large cuff Respiratory Rate 16 /min BMI (Body Mass Index) 46.5 kg/m2 Ejection Fraction 55-60% date 01/28/16 ECHO 11/22/2016 1:13pm Height 61.75 inches 5'1.75" Weight 253.00 lb with shoes Heart Rate 64 /min BP Systolic Sitting 90 mmHg Lue lg cuff BP Diastolic Sitting 76 mmHg Lue lg cuff BP Systolic Standing 130 mmHg Lue pt lighthead tired BP Diastolic Standing 82 mmHg Lue pt lighthead tired Respiratory Rate 16 /min BMI (Body Mass Index) 46.6 kg/m2 Ejection Fraction 55-60% date 01/28/16 ECHO 09/24/2016 12:46pm Height 61.75 inches 5'1.75" Weight 259.00 lb Heart Rate 68 /min BP Systolic Sitting 140 mmHg BP Diastolic Sitting 60 mmHg Respiratory Rate 14 /min Body Temperature 97.0 F Pain Level 6 BMI (Body Mass Index) 47.8 kg/m2 08/30/2016 1:45pm Height 61.75 inches 5'1.75" Weight 255.00 lb Heart Rate 70 /min BP Systolic 128 mmHg BP Diastolic 72 mmHg Respiratory Rate 16 /min O2 % BldC Oximetry 98 % BMI (Body Mass Index) 47.0 kg/m2 07/09/2016 11:42am Height 61.75 inches 5'1.75" Weight 255.00 lb with shoes Heart Rate 62 /min BP Systolic Sitting 100 mmHg Ra lg cuff BP Diastolic Sitting 56 mmHg Ra lg cuff Respiratory Rate 17 /min BMI (Body Mass Index) 47.0 kg/m2 Ejection Fraction 55-60% date 01/28/16 ECHO 06/07/2016 1:23pm Height 61.75 inches 5'1.75" Weight 254.25 lb Heart Rate 68 /min BP Systolic Sitting 90 mmHg BP Diastolic Sitting 60 mmHg Respiratory Rate 20 /min Pain Level 5 BMI (Body Mass Index) 46.9 kg/m2 05/17/2016 11:37am Height 61.75 inches 5'1.75" Weight 223.25 lb with shoes Heart Rate 64 /min BP Systolic Sitting 124 mmHg LA lg cuff BP Diastolic Sitting 66 mmHg LA lg cuff BP Systolic Standing 128 mmHg Ra lg cuff BP Diastolic Standing 70 mmHg Ra lg cuff Respiratory Rate 16 /min BMI (Body Mass Index) 41.2 kg/m2 Ejection Fraction 55-60% date 01/28/16 ECHO 05/16/2016 11:39am Height 61.75 inches 5'1.75" Weight 249.00 lb Heart Rate 72 /min BP Systolic Sitting 120 mmHg BP Diastolic Sitting 72 mmHg Respiratory Rate 14 /min BMI (Body Mass Index) 45.9 kg/m2 03/01/2016 1:10pm Height 61.75 inches 5'1.75" Weight 253.00 lb Heart Rate 64 /min BP Systolic Sitting 124 mmHg BP Diastolic Sitting 64 mmHg Respiratory Rate 16 /min Body Temperature 98.6 F Pain Level 3 BMI (Body Mass Index) 46.6 kg/m2 02/27/2016 12:57pm Height 61.75 inches 5'1.75" Weight 253.00 lb Heart Rate 65 /min BP Systolic Sitting 144 mmHg BP Diastolic Sitting 76 mmHg Respiratory Rate 18 /min O2 % BldC Oximetry 98 % BMI (Body Mass Index) 46.6 kg/m2 02/16/2016 10:05am Height 61.75 inches 5'1.75" Weight 255.00 lb With shoes Heart Rate 72 /min BP Systolic Sitting 142 mmHg LA lrg cuff BP Diastolic Sitting 62 mmHg LA lrg cuff Respiratory Rate 18 /min BMI (Body Mass Index) 47.0 kg/m2 Ejection Fraction 55-60% 01/28/16 02/05/2016 11:42am Height 61.75 inches 5'1.75" Weight 256.00 lb with shoes Heart Rate 64 /min BP Systolic Sitting 148 mmHg LA lrg cuff BP Diastolic Sitting 80 mmHg LA lrg cuff Respiratory Rate 15 /min BMI (Body Mass Index) 47.2 kg/m2 Ejection Fraction 55-60% 01/28/16 12/19/2015 2:15pm Height 61.75 inches 5'1.75" Weight 249.00 lb Heart Rate 68 /min BP Systolic Sitting 126 mmHg BP Diastolic Sitting 70 mmHg Respiratory Rate 14 /min BMI (Body Mass Index) 45.9 kg/m2 11/29/2015 10:32am Height 61.75 inches 5'1.75" Weight 256.50 lb Heart Rate 65 /min BP Systolic Sitting 120 mmHg BP Diastolic Sitting 58 mmHg Respiratory Rate 18 /min O2 % BldC Oximetry 98 % BMI (Body Mass Index) 47.3 kg/m2 11/22/2015 11:17am Height 61.75 inches 5'1.75" Weight 256.50 lb Heart Rate 64 /min BP Systolic Sitting 112 mmHg BP Diastolic Sitting 60 mmHg Respiratory Rate 18 /min Pain Level 5 BMI (Body Mass Index) 47.3 kg/m2 11/03/2015 11:21am Height 61.75 inches 5'1.75" Weight 257.00 lb with shoes Heart Rate 74 /min regular BP Systolic Sitting 140 mmHg left arm large cuff BP Diastolic Sitting 74 mmHg left arm large cuff BP Systolic Standing 146 mmHg left arm large cuff BP Diastolic Standing 72 mmHg left arm large cuff Respiratory Rate 22 /min BMI (Body Mass Index) 47.4 kg/m2 Ejection Fraction 60-65% 2012 echo 09/20/2015 10:46am Height 61.75 inches 5'1.75" Weight 250.00 lb BMI (Body Mass Index) 46.1 kg/m2 08/24/2015 12:04pm Height 61.75 inches 5'1.75" Weight 250.00 lb Patient reported from this Am Heart Rate 64 /min BP Systolic Sitting 134 mmHg BP Diastolic Sitting 74 mmHg Respiratory Rate 16 /min BMI (Body Mass Index) 46.1 kg/m2 08/22/2015 10:38am Height 61.75 inches 5'1.75" Weight 256.00 lb Heart Rate 68 /min BP Systolic Sitting 120 mmHg BP Diastolic Sitting 66 mmHg Respiratory Rate 18 /min Body Temperature 97.4 F tympanic Pain Level 3 BMI (Body Mass Index) 47.2 kg/m2 08/18/2015 1:05pm Height 61.75 inches 5'1.75" Weight 231.00 lb with shoes Heart Rate 72 /min regular BP Systolic Sitting 142 mmHg right arm large cuff BP Diastolic Sitting 74 mmHg right arm large cuff BP Systolic Standing 140 mmHg right arm large cuff BP Diastolic Standing 72 mmHg right arm large cuff Respiratory Rate 20 /min BMI (Body Mass Index) 42.6 kg/m2 Ejection Fraction 70% stress test 08/16/15 08/07/2015 10:35am Height 61.75 inches 5'1.75" Weight 257.00 lb with shoes Heart Rate 64 /min , 66 sit and stand HR reg BP Systolic Sitting 156 mmHg Ra lg cuff BP Diastolic Sitting 70 mmHg Ra lg cuff BP Systolic Standing 160 mmHg Ra lg cuff "lighthead" BP Diastolic Standing 98 mmHg Ra lg cuff "lighthead" Respiratory Rate 17 /min BMI (Body Mass Index) 47.4 kg/m2 Ejection Fraction 60-65% date 01/12/12 ECHO 06/21/2015 10:43am Height 62 inches 5'2" Weight 255.00 lb Pain Level 8 BMI (Body Mass Index) 46.6 kg/m2 05/29/2015 2:56pm Height 62 inches 5'2" Weight 255.00 lb Heart Rate 72 /min BP Systolic Sitting 154 mmHg BP Diastolic Sitting 60 mmHg Pain Level 9 BMI (Body Mass Index) 46.6 kg/m2 05/24/2015 11:04am Height 62 inches 5'2" Weight 252.00 lb Heart Rate 64 /min BP Systolic Sitting 147 mmHg BP Diastolic Sitting 72 mmHg Pain Level 10 when pain occurs BMI (Body Mass Index) 46.1 kg/m2 03/24/2015 10:12am Height 62 inches 5'2" Weight 252.00 lb Heart Rate 64 /min BP Systolic Sitting 124 mmHg BP Diastolic Sitting 70 mmHg Respiratory Rate 16 /min BMI (Body Mass Index) 46.1 kg/m2 12/15/2014 10:44am Height 62 inches 5'2" Weight 247.00 lb Heart Rate 63 /min BP Systolic Sitting 136 mmHg BP Diastolic Sitting 72 mmHg Respiratory Rate 20 /min O2 % BldC Oximetry 98 % BMI (Body Mass Index) 45.2 kg/m2 11/09/2014 10:45am Height 62 inches 5'2" Weight 252.00 lb Heart Rate 70 /min BP Systolic Sitting 140 mmHg BP Diastolic Sitting 70 mmHg Pain Level 4 BMI (Body Mass Index) 46.1 kg/m2 11/04/2014 11:19am Height 62 inches 5'2" Weight 245.00 lb Heart Rate 60 /min BP Systolic Sitting 120 mmHg BP Diastolic Sitting 70 mmHg Respiratory Rate 12 /min BMI (Body Mass Index) 44.8 kg/m2 10/31/2014 2:26pm Height 62 inches 5'2" Weight 250.00 lb BMI (Body Mass Index) 45.7 kg/m2 09/28/2014 10:58am Height 62 inches 5'2" Weight 248.00 lb Heart Rate 74 /min BP Systolic Sitting 122 mmHg BP Diastolic Sitting 60 mmHg Pain Level 9 BMI (Body Mass Index) 45.4 kg/m2 09/13/2014 2:15pm Height 62 inches 5'2" Weight 246.00 lb Heart Rate 66 /min BP Systolic Sitting 140 mmHg BP Diastolic Sitting 60 mmHg Pain Level 7 lower back L>R, feet also hurt, not as bad BMI (Body Mass Index) 45.0 kg/m2 08/30/2014 11:04am Height 62 inches 5'2" Weight 247.00 lb Heart Rate 64 /min BP Systolic Sitting 122 mmHg left arm, large cuff BP Diastolic Sitting 70 mmHg left arm, large cuff Respiratory Rate 16 /min O2 % BldC Oximetry 98 % Room air BMI (Body Mass Index) 45.2 kg/m2 Neck Circumference in inches 15 08/23/2014 12:43pm Height 62 inches 5'2" Weight 240.00 lb Heart Rate 68 /min BP Systolic Sitting 122 mmHg BP Diastolic Sitting 68 mmHg Respiratory Rate 16 /min BMI (Body Mass Index) 43.9 kg/m2 08/19/2014 3:06pm Height 62 inches 5'2" Weight 240.00 lb Heart Rate 72 /min BP Systolic Sitting 132 mmHg LA large cuff BP Diastolic Sitting 68 mmHg LA large cuff BP Systolic Standing 130 mmHg LA BP Diastolic Standing 68 mmHg LA Respiratory Rate 18 /min BMI (Body Mass Index) 43.9 kg/m2 06/16/2014 2:02pm Height 62 inches 5'2" Weight 236.00 lb Heart Rate 76 /min BP Systolic Sitting 148 mmHg BP Diastolic Sitting 64 mmHg Respiratory Rate 16 /min BMI (Body Mass Index) 43.2 kg/m2 05/20/2014 10:06am Height 61.5 inches 5'1.50" Weight 232.31 lb no shoes Heart Rate 73 /min BP Systolic Sitting 128 mmHg LA, Lg cuff BP Diastolic Sitting 70 mmHg LA, Lg cuff BP Systolic Standing 122 mmHg LA BP Diastolic Standing 72 mmHg LA Respiratory Rate 16 /min BMI (Body Mass Index) 43.2 kg/m2 05/04/2014 8:32am Height 61.5 inches 5'1.50" Weight 233.00 lb Heart Rate 80 /min BP Systolic Sitting 122 mmHg LA large cuff BP Diastolic Sitting 60 mmHg LA large cuff BP Systolic Standing 124 mmHg LA BP Diastolic Standing 64 mmHg LA Respiratory Rate 18 /min BMI (Body Mass Index) 43.3 kg/m2 Results Test Date Facility Test Result H/L Range Note Urine Culture And 07/01/2017 [facility] Urine Culture SEE RESULT 1, [address] [place] [address] [phone] CBC Auto Diff 07/01/2017 [facility] White Blood 7.8 10^3/uL N 3.5-10.[address] [place] [address] [phone] Red Blood Count 3.50 10^6/uL Low 4.0-5.4 Hemoglobin 10.4 g/dL Low 12.0-16.0 Hematocrit 32 % Low 35-47 Mean Corpuscular Volume 91 fL N 80-97 Mean Corpuscular Hemoglobin 30 pg N 27-31 Mean Corpuscular HGB Conc 33 g/dL N 31-36 Red Cell Distribution Width 14 % N 10.5-15 Platelet Count 160 10^3/uL N 150-450 Mean Platelet Volume 11 um3 High 7.4-10.4 Abs Neutrophils 5.6 10^3/uL N 1.5-7.7 Abs Lymphocytes 1.0 10^3/uL N 1.0-4.8 Abs Monocytes 0.9 10^3/uL High 0-0.8 Abs Eosinophils 0.4 10^3/uL N 0-0.6 Abs Basophils 0 10^3/uL N 0-0.2 Abs Nucleated RBC 0 10^3/uL N Granulocyte % 71.5 % N 38-83 Lymphocyte % 12.2 % Low 25-47 Monocyte % 11.2 % High 1-9 Eosinophil % 4.5 % N 0-6 Basophil % 0.6 % N 0-2 Nucleated Red Blood Cells % 0.1 N Pthi 07/01/2017 [facility] Calcium (PTH Intact) 9.3 mg/dL N 8.6-10.[address] [place] [address] [phone] PTH Intact 9.9 pmol/L High 1.3-9.3 Comp Metabolic Panel 07/01/2017 [facility] Sodium 135 mmol/L N 133-[address] [place] [address] [phone] Potassium 4.5 mmol/L N 3.5-5.0 Chloride 102 mmol/L N 101-111 Co2 Carbon Dioxide 30 mmol/L N 22-32 Anion Gap 3 mmol/L N 2-11 Glucose 119 mg/dL High 70-100 Blood Urea Nitrogen 11 mg/dL N 6-24 Creatinine 1.24 mg/dL High 0.51-0.95 One Over Creatinine 0.80 mg/dL N 0.51-0.95 BUN/Creatinine Ratio 8.9 N 8-20 Calcium 9.2 mg/dL N 8.6-10.3 Total Protein 5.9 g/dL Low 6.4-8.9 Albumin 3.6 g/dL N 3.2-5.2 Globulin 2.3 g/dL N 2-4 Albumin/Globulin Ratio 1.6 N 1-3 Total Bilirubin 0.40 mg/dL N 0.2-1.0 Alkaline Phosphatase 83 U/L N 34-104 Alt 7 U/L N 7-52 Ast 11 U/L Low 13-39 Egfr Non- 42.1 N >60 Egfr 54.1 N >60 3 Lipid Profile 07/01/2017 [facility] Triglycerides 54 mg/dL N 4 (Trig/Chol/HDL) [address] [place] [address] [phone] Cholesterol 121 mg/dL N 5 HDL Cholesterol 43.2 mg/dL N 6 LDL Cholesterol 67 mg/dL N 7 Liver Function 07/01/2017 [facility] Direct 0.10 mg/dL N 0.03- 0.18 [place] [address] [phone] Indirect Bilirubin 0.3 mg/dL N 0.3-1.0 Laboratory test 07/01/2017 [facility] Uric Acid 6.7 mg/dL High 2.3-6.6 8 finding [address] [place] [address] [phone] Vitamin D Total 25(Oh) 44.1 ng/mL N 30-50 9 Urinalysis Profile 07/01/2017 [facility] [place] [address] [phone] Urine Appearance Clear N Urine Specific [place] 1.009 Low 1.010-1.030 Urine pH 6.0 N 5-9 Urine Urobilinogen Negative N Negative Urine Ketones Negative N Negative Urine Protein Negative N Negative Urine Leukocytes 2+ Abnormal Negative Urine Blood Negative N Negative Urine Nitrite Negative N Negative Urine Bilirubin Negative N Negative Urine Glucose Negative N Negative Urine White Blood Cell Trace(0-5/hpf) N Absent Urine Red Blood Cell Absent N Absent Urine Bacteria Absent N Absent Urine Squamous Epithelial Cell Present Abnormal Absent Laboratory test 07/01/2017 [facility] Hemoglobin A1c 5.9 % N Less than 10 finding 101 (Glyco HGB) 6.0 [place] [address] [phone] Total Protein 07/01/2017 [facility] Urine Random 9 mg/dL N 24HR Urine [address] [place] [address] [phone] Urine Total Protein/24HR 121 mg/24Hr N 0-165 Creatinine 24HR Urine 07/01/2017 [facility] Urine Collection Time 24 N [address] [place] [address] [phone] Urine Total Volume 1350 mL N Urine Random Creatinine 75.28 mg/dL N Urine Creatinine/24HR 1016.28 mg/24Hr N 600-1800 Laboratory test 06/24/2017 [facility] Ferritin 118.2 ng/mL N 11-[address] [place] [address] [phone] CBC Auto Diff 06/24/2017 [facility] White Blood 7.9 10^3/uL N 3.5-10.[address] [place] [address] [phone] Red Blood Count 3.76 10^6/uL Low 4.0-5.4 Hemoglobin 11.3 g/dL Low 12.0-16.0 Hematocrit 34 % Low 35-47 Mean Corpuscular Volume 92 fL N 80-97 Mean Corpuscular Hemoglobin 30 pg N 27-31 Mean Corpuscular HGB Conc 33 g/dL N 31-36 Red Cell Distribution Width 14 % N 10.5-15 Platelet Count 170 10^3/uL N 150-450 Mean Platelet Volume 11 um3 High 7.4-10.4 Abs Neutrophils 5.7 10^3/uL N 1.5-7.7 Abs Lymphocytes 1.1 10^3/uL N 1.0-4.8 Abs Monocytes 0.9 10^3/uL High 0-0.8 Abs Eosinophils 0.2 10^3/uL N 0-0.6 Abs Basophils 0.1 10^3/uL N 0-0.2 Abs Nucleated RBC 0 10^3/uL N Granulocyte % 71.8 % N 38-83 Lymphocyte % 14.2 % Low 25-47 Monocyte % 10.8 % High 1-9 Eosinophil % 2.5 % N 0-6 Basophil % 0.7 % N 0-2 Nucleated Red Blood Cells % 0 N Pthi 06/24/2017 [facility] Calcium (PTH Intact) 9.6 mg/dL N 8.6-10.3 [address] [place] [address] [phone] PTH Intact 11.1 pmol/L High 1.3-9.3 Comp Metabolic Panel 06/24/2017 [facility] Sodium 137 mmol/L N 133-145 [address] [place] [address] [phone] Potassium 4.3 mmol/L N 3.5-5.0 Chloride 102 mmol/L N 101-111 Co2 Carbon Dioxide 30 mmol/L N 22-32 Anion Gap 5 mmol/L N 2-11 Glucose 132 mg/dL High 70-100 Blood Urea Nitrogen 13 mg/dL N 6-24 Creatinine 1.31 mg/dL High 0.51-0.95 One Over Creatinine 0.76 mg/dL N 0.51-0.95 BUN/Creatinine Ratio 9.9 N 8-20 Calcium 9.4 mg/dL N 8.6-10.3 Total Protein 6.3 g/dL Low 6.4-8.9 Albumin 3.9 g/dL N 3.2-5.2 Globulin 2.4 g/dL N 2-4 Albumin/Globulin Ratio 1.6 N 1-3 Total Bilirubin 0.50 mg/dL N 0.2-1.0 Alkaline Phosphatase 96 U/L N 34-104 Alt 6 U/L Low 7-52 Ast 11 U/L Low 13-39 Egfr Non- 39.5 N >60 Egfr 50.8 N >60 11 Lipid Profile 06/24/2017 [facility] Triglycerides 56 mg/dL N 12 (Trig/Chol/HDL) [address] [place] [address] [phone] Cholesterol 120 mg/dL N 13 HDL Cholesterol 39.9 mg/dL N 14 LDL Cholesterol 69 mg/dL N 15 Liver Function 06/24/2017 [facility] Direct 0.10 mg/dL N 0.03- 0.[address] [place] [address] [phone] Indirect Bilirubin 0.4 mg/dL N 0.3-1.0 Laboratory test 06/24/2017 [facility] Uric Acid 6.6 mg/dL N 2.3-6.[address] [place] [address] [phone] Vitamin D Total 25(Oh) 45.5 ng/mL N 30-50 Hemoglobin A1c (Glyco HGB) 6.0 % High Less than 6.0 16 CBC Auto Diff 02/17/2017 [facility] White Blood 8.0 10^3/uL N 3.5-10.[address] [place] [address] [phone] Red Blood Count 3.54 10^6/uL Low 4.0-5.4 Hemoglobin 10.6 g/dL Low 12.0-16.0 Hematocrit 32 % Low 35-47 Mean Corpuscular Volume 91 fL N 80-97 Mean Corpuscular Hemoglobin 30 pg N 27-31 Mean Corpuscular HGB Conc 33 g/dL N 31-36 Red Cell Distribution Width 14 % N 10.5-15 Platelet Count 148 10^3/uL Low 150-450 Mean Platelet Volume 11 um3 High 7.4-10.4 Abs Neutrophils 5.3 10^3/uL N 1.5-7.7 Abs Lymphocytes 1.3 10^3/uL N 1.0-4.8 Abs Monocytes 1.0 10^3/uL High 0-0.8 Abs Eosinophils 0.3 10^3/uL N 0-0.6 Abs Basophils 0.1 10^3/uL N 0-0.2 Abs Nucleated RBC 0 10^3/uL N Granulocyte % 66.4 % N 38-83 Lymphocyte % 16.7 % Low 25-47 Monocyte % 12.2 % High 1-9 Eosinophil % 4.0 % N 0-6 Basophil % 0.7 % N 0-2 Nucleated Red Blood Cells % 0 N Comp Metabolic Panel 02/17/2017 [facility] Sodium 137 mmol/L N 133-145 [address] [place] [address] [phone] Potassium 4.5 mmol/L N 3.5-5.0 Chloride 103 mmol/L N 101-111 Co2 Carbon Dioxide 29 mmol/L N 22-32 Anion Gap 5 mmol/L N 2-11 Glucose 116 mg/dL High 70-100 Blood Urea Nitrogen 16 mg/dL N 6-24 Creatinine 1.43 mg/dL High 0.51-0.95 BUN/Creatinine Ratio 11.2 N 8-20 Calcium 9.1 mg/dL N 8.6-10.3 Total Protein 6.0 g/dL Low 6.4-8.9 Albumin 3.6 g/dL N 3.2-5.2 Globulin 2.4 g/dL N 2-4 Albumin/Globulin Ratio 1.5 N 1-3 Total Bilirubin 0.40 mg/dL N 0.2-1.0 Alkaline Phosphatase 74 U/L N 34-104 Alt 9 U/L N 7-52 Ast 14 U/L N 13-39 Egfr Non- 35.8 N >60 Egfr 46.0 N >60 17 Laboratory test 02/17/2017 [facility] C Reactive 4.56 mg/L N < 5.[address] [place] [address] [phone] Erythrocyte Sed Rate 39 mm/Hr N 0-40 Iron (Fe) 46 g/dL Low 50-212 Ferritin 92.4 ng/mL N 11-307 Comp Metabolic Panel 09/26/2016 [facility] Sodium 139 mmol/L N 133-[address] [place] [address] [phone] Potassium 3.7 mmol/L N 3.5-5.0 Chloride 105 mmol/L N 101-111 Co2 Carbon Dioxide 29 mmol/L N 22-32 Anion Gap 5 mmol/L N 2-11 Glucose 257 mg/dL High 70-100 Blood Urea Nitrogen 16 mg/dL N 6-24 Creatinine 1.35 mg/dL High 0.51-0.95 BUN/Creatinine Ratio 11.9 N 8-20 Calcium 8.9 mg/dL N 8.6-10.3 Total Protein 6.2 g/dL Low 6.4-8.9 Albumin 3.6 g/dL N 3.2-5.2 Globulin 2.6 g/dL N 2-4 Albumin/Globulin Ratio 1.4 N 1-3 Total Bilirubin 0.30 mg/dL N 0.2-1.0 Alkaline Phosphatase 75 U/L N 34-104 Alt 11 U/L N 7-52 Ast 15 U/L N 13-39 Egfr Non- 38.2 N >60 Egfr 49.2 N >60 19 Laboratory test 09/26/2016 [facility] C Reactive 7.80 mg/L High < 5.[address] [place] [address] [phone] CBC Auto Diff 09/26/2016 [facility] White Blood 9.0 N 3.5- 10.[address] Count 10^3/[place] [address] [phone] Red Blood Count 3.56 10^6/uL Low 4.0-5.4 Hemoglobin 10.7 g/dL Low 12.0-16.0 Hematocrit 33 % Low 35-47 Mean Corpuscular Volume 92 fL N 80-97 Mean Corpuscular Hemoglobin 30 pg N 27-31 Mean Corpuscular HGB Conc 33 g/dL N 31-36 Red Cell Distribution Width 14 % N 10.5-15 Platelet Count 154 10^3/uL N 150-450 Mean Platelet Volume 11 um3 High 7.4-10.4 Abs Neutrophils 6.7 10^3/uL N 1.5-7.7 Abs Lymphocytes 1.0 10^3/uL N 1.0-4.8 Abs Monocytes 0.9 10^3/uL High 0-0.8 Abs Eosinophils 0.3 10^3/uL N 0-0.6 Abs Basophils 0 10^3/uL N 0-0.2 Abs Nucleated RBC 0 10^3/uL N Granulocyte % 74.7 % N 38-83 Lymphocyte % 11.4 % Low 25-47 Monocyte % 10.2 % High 1-9 Eosinophil % 3.2 % N 0-6 Basophil % 0.5 % N 0-2 Nucleated Red Blood Cells % 0 N Comp Metabolic Panel 06/25/2016 [facility] Sodium 132 mmol/L Low 133-145 [address] [place] [address] [phone] Potassium 4.8 mmol/L N 3.5-5.0 Chloride 100 mmol/L Low 101-111 Co2 Carbon Dioxide 29 mmol/L N 22-32 Anion Gap 3 mmol/L N 2-11 Glucose 116 mg/dL High 70-100 Blood Urea Nitrogen 32 mg/dL High 6-24 Creatinine 2.03 mg/dL High 0.51-0.95 BUN/Creatinine Ratio 15.8 N 8-20 Calcium 9.2 mg/dL N 8.6-10.3 Total Protein 6.0 g/dL Low 6.4-8.9 Albumin 3.8 g/dL N 3.2-5.2 Globulin 2.2 g/dL N 2-4 Albumin/Globulin Ratio 1.7 N 1-3 Alkaline Phosphatase 62 U/L N 34-104 Alt 14 U/L N 7-52 Ast 18 U/L N 13-39 Egfr Non- 23.9 N >60 Egfr 30.7 N >60 21 Total Bilirubin 0.40 mg/dL N 0.2-1.0 CBC Auto Diff 06/25/2016 [facility] White Blood 7.7 10^3/uL N 3.5-10.[address] [place] [address] [phone] Red Blood Count 3.18 10^6/uL Low 4.0-5.4 Hemoglobin 9.7 g/dL Low 12.0-16.0 Hematocrit 29 % Low 35-47 Mean Corpuscular Volume 92 fL N 80-97 Mean Corpuscular Hemoglobin 30 pg N 27-31 Mean Corpuscular HGB Conc 33 g/dL N 31-36 Red Cell Distribution Width 14 % N 10.5-15 Platelet Count 155 10^3/uL N 150-450 Mean Platelet Volume 10 um3 N 7.4-10.4 Abs Neutrophils 5.4 10^3/uL N 1.5-7.7 Abs Lymphocytes 0.9 10^3/uL Low 1.0-4.8 Abs Monocytes 1.0 10^3/uL High 0-0.8 Abs Eosinophils 0.3 10^3/uL N 0-0.6 Abs Basophils 0.1 10^3/uL N 0-0.2 Abs Nucleated RBC 0 10^3/uL N Granulocyte % 70.5 % N 38-83 Lymphocyte % 11.9 % Low 25-47 Monocyte % 13.1 % High 1-9 Eosinophil % 3.7 % N 0-6 Basophil % 0.8 % N 0-2 Nucleated Red Blood Cells % 0.1 N Laboratory test 06/25/2016 [facility] C Reactive 3.58 mg/L N < 5.00 [address] [place] [address] [phone] Erythrocyte Sed Rate 44 mm/Hr High 0-40 Comp Metabolic Panel 03/28/2016 [facility] Sodium 136 mmol/L N 133-[address] [place] [address] [phone] Potassium 4.6 mmol/L N 3.5-5.0 Chloride 104 mmol/L N 101-111 Co2 Carbon Dioxide 26 mmol/L N 22-32 Anion Gap 6 mmol/L N 2-11 Glucose 186 mg/dL High 70-100 Blood Urea Nitrogen 22 mg/dL N 6-24 Creatinine 1.65 mg/dL High 0.51-0.95 BUN/Creatinine Ratio 13.3 N 8-20 Calcium 9.4 mg/dL N 8.6-10.3 Total Protein 6.4 g/dL N 6.4-8.9 Albumin 4.0 g/dL N 3.2-5.2 Globulin 2.4 g/dL N 2-4 Albumin/Globulin Ratio 1.7 N 1-3 Total Bilirubin 0.30 mg/dL N 0.2-1.0 Alkaline Phosphatase 80 U/L N 34-104 Alt 13 U/L N 7-52 Ast 17 U/L N 13-39 Egfr Non- 30.4 N >60 Egfr 39.1 N >60 23 Laboratory test 03/28/2016 [facility] C Reactive 2.90 mg/L N < 5.00 [address] [place] [address] [phone] CBC Auto Diff 03/25/2016 [facility] White Blood 7.3 N 3.5- 10.[address] Count 10^3/[place] [address] [phone] Red Blood Count 3.48 10^6/uL Low 4.0-5.4 Hemoglobin 10.8 g/dL Low 12.0-16.0 Hematocrit 33 % Low 35-47 Mean Corpuscular Volume 95 fL N 80-97 Mean Corpuscular Hemoglobin 31 pg N 27-31 Mean Corpuscular HGB Conc 33 g/dL N 31-36 Red Cell Distribution Width 14 % N 10.5-15 Platelet Count 162 10^3/uL N 150-450 Mean Platelet Volume 10 um3 N 7.4-10.4 Abs Neutrophils 5.5 10^3/uL N 1.5-7.7 Abs Lymphocytes 0.7 10^3/uL Low 1.0-4.8 Abs Monocytes 0.9 10^3/uL High 0-0.8 Abs Eosinophils 0.2 10^3/uL N 0-0.6 Abs Basophils 0.1 10^3/uL N 0-0.2 Abs Nucleated RBC 0.01 10^3/uL N Granulocyte % 74.7 % N 38-83 Lymphocyte % 9.2 % Low 25-47 Monocyte % 12.0 % High 1-9 Eosinophil % 3.3 % N 0-6 Basophil % 0.8 % N 0-2 Nucleated Red Blood Cells % 0.1 N Laboratory test 03/25/2016 [facility] Erythrocyte Sed 41 mm/Hr High 0-40 [address] [place] [address] [phone] Urinalysis 03/25/2016 [facility] Urine Color Yellow N Profile [address] [place] [address] [phone] Urine Appearance Clear N Urine Specific [place] 1.010 N 1.010-1.030 Urine pH 5.0 N 5-9 Urine Urobilinogen Negative N Negative Urine Ketones Negative N Negative Urine Protein Negative N Negative Urine Leukocytes Negative N Negative Urine Blood Negative N Negative Urine Nitrite Negative N Negative Urine Bilirubin Negative N Negative Urine Glucose Negative N Negative Comp Metabolic 12/25/2015 [facility] Sodium 128 mmol/L Low 133 -[address] [place] [address] [phone] Potassium 4.8 mmol/L N 3.5-5.0 Chloride 98 mmol/L Low 101-111 Co2 Carbon Dioxide 27 mmol/L N 22-32 Anion Gap 3 mmol/L N 2-11 Glucose 147 mg/dL High 70-100 Blood Urea Nitrogen 27 mg/dL High 6-24 Creatinine 1.72 mg/dL High 0.51-0.95 BUN/Creatinine Ratio 15.7 N 8-20 Calcium 8.9 mg/dL N 8.6-10.3 Total Protein 6.2 g/dL Low 6.4-8.9 Albumin 3.6 g/dL N 3.2-5.2 Globulin 2.6 g/dL N 2-4 Albumin/Globulin Ratio 1.4 N 1-3 Total Bilirubin 0.40 mg/dL N 0.2-1.0 Alkaline Phosphatase 79 U/L N 34-104 Alt 11 U/L N 7-52 Ast 16 U/L N 13-39 Egfr Non- 29.0 N >60 Egfr 37.3 N >60 27 Laboratory test 12/25/2015 [facility] C Reactive 5.66 mg/L High < 5.00 [address] [place] [address] [phone] Erythrocyte Sed Rate 63 mm/Hr High 0-40 29 Terra (Antinuclear Antibodies) Reflexed to FA Abnormal Negative 30 Anti Ssa/Ro Antibody >8.0 U Abnormal 31 SS-B/La Antibody <0.2 U N 32 Ferritin 186.4 ng/mL N 11-307 33 CBC Auto Diff 12/25/2015 [facility] White Blood 6.3 10^3/uL N 3.5-10.[address] [place] [address] [phone] Red Blood Count 3.09 10^6/uL Low 4.0-5.4 Hemoglobin 9.2 g/dL Low 12.0-16.0 Hematocrit 28 % Low 35-47 Mean Corpuscular Volume 91 fL N 80-97 Mean Corpuscular Hemoglobin 30 pg N 27-31 Mean Corpuscular HGB Conc 33 g/dL N 31-36 Red Cell Distribution Width 14 % N 10.5-15 Platelet Count 156 10^3/uL N 150-450 Mean Platelet Volume 10 um3 N 7.4-10.4 Abs Neutrophils 4.5 10^3/uL N 1.5-7.7 Abs Lymphocytes 0.8 10^3/uL Low 1.0-4.8 Abs Monocytes 0.7 10^3/uL N 0-0.8 Abs Eosinophils 0.2 10^3/uL N 0-0.6 Abs Basophils 0.1 10^3/uL N 0-0.2 Abs Nucleated RBC 0 10^3/uL N Granulocyte % 71.5 % N 38-83 Lymphocyte % 12.9 % Low 25-47 Monocyte % 11.8 % High 1-9 Eosinophil % 3.0 % N 0-6 Basophil % 0.8 % N 0-2 Nucleated Red Blood Cells % 0 N Iron & Iron Binding 12/25/2015 [facility] Iron 60 g/dL N 50- [address] [place] [address] [phone] Unsaturated Iron Binding 207 g/dL N Total Iron Binding Capacity 267 g/dL N 250-450 % Iron Saturation 22 % N 15-55 Terra Hep-2 12/25/2015 [facility] Terra Pattern Speckled N Negative [address] [place] [address] [phone] Terra Titer 1:5120 N <1:80 Terra Reviewed By MD Crow Ashby <SEE NOTE> N 35 Hemoglobin/Hematacrit 12/25/2015 [facility] Hemoglobin 9.2 Low 12.0-16.[address] g/[place] [address] [phone] Hematocrit 29 % Low 35-47 Lipid Profile 12/25/2015 [facility] Triglycerides 58 mg/dL N 36 (Trig/Chol/HDL) [address] [place] [address] [phone] Cholesterol 110 mg/dL N 37 HDL Cholesterol 36.9 mg/dL N 38 LDL Cholesterol 62 mg/dL N 39 Laboratory test 12/25/2015 [facility] Creatine 92 U/L N 10- [address] Kinase(CK) [place] [address] [phone] Hemoglobin A1c (Glyco HGB) 6.6 % High Less than 6.0 40 Urine Microalbumin 12/25/2015 [facility] Ur Microalbumin < 5.0 mg/L N Random [address] (mg/L) [place] [address] [phone] Urine Creatinine 106.65 mg/dL N Urine Microalbumin/Creatinine TNP ug/mg N <31 41 CBC Auto Diff 04/24/2015 [facility] White Blood 5.3 10^3/uL N 4.8-10.[address] [place] [address] [phone] Red Blood Count 3.17 10^6/uL Low 4.0-5.4 Hemoglobin 9.8 g/dL Low 12.0-16.0 Hematocrit 30 % Low 35-47 Mean Corpuscular Volume 94 fL N 80-97 Mean Corpuscular Hemoglobin 31 pg N 27-31 Mean Corpuscular HGB Conc 33 g/dL N 31-36 Red Cell Distribution Width 14 % N 10.5-15 Platelet Count 161 10^3/uL N 150-450 Mean Platelet Volume 9 um3 N 7.4-10.4 Abs Neutrophils 3.7 10^3/uL N 1.5-7.7 Abs Lymphocytes 0.7 10^3/uL Low 1.0-4.8 Abs Monocytes 0.7 10^3/uL N 0-0.8 Abs Eosinophils 0.2 10^3/uL N 0-0.6 Abs Basophils 0.1 10^3/uL N 0-0.2 Abs Nucleated RBC 0 10^3/uL N Granulocyte % 69.2 % N 38-83 Lymphocyte % 13.1 % Low 25-47 Monocyte % 13.8 % High 1-9 Eosinophil % 2.9 % N 0-6 Basophil % 1.0 % N 0-2 Nucleated Red Blood Cells % 0 N Laboratory test 04/24/2015 [facility] C Reactive 2.67 mg/L N < 5.00 [address] [place] [address] [phone] Erythrocyte Sed Rate 39 mm/Hr N 0-40 Terra (Antinuclear Antibodies) Reflexed to FA Abnormal Negative Nay Screen Negative N Negative 43 Urinalysis Profile 04/24/2015 [facility] Urine Color Straw N [address] [place] [address] [phone] Urine Appearance Clear N Urine Specific [place] 1.005 Low 1.010-1.030 Urine pH 6.0 N 5-9 Urine Urobilinogen Negative N Negative Urine Ketones Negative N Negative Urine Protein Negative N Negative Urine Leukocytes Negative N Negative Urine Blood Negative N Negative Urine Nitrite Negative N Negative Urine Bilirubin Negative N Negative Urine Glucose Negative N Negative Terra Hep-2 04/24/2015 [facility] Terra Pattern Speckled N Negative [address] [place] [address] [phone] Terra Titer 1:5120 N <1:80 Etrra Reviewed By MD Crow Ashby <SEE NOTE> N 44 Laboratory test 09/22/2014 [facility] Anti Double Negative N Negative [address] [place] [address] [phone] Sm (Fang) IgG Antibody <0.2 U N 46 U1 ASSEMBLER BICYCLE/SNRNP Igg 09/22/2014 [facility] U1 ASSEMBLER BICYCLE IgG <0.2 U N [address] [place] [address] [phone] CBC Auto Diff 09/22/2014 [facility] White Blood 7.2 10^3/uL N 4.8-10. [address] Count 8 [place] [address] [phone] Red Blood Count 3.45 10^6/uL Low 4.0-5.4 Hemoglobin 10.6 g/dL Low 12.0-16.0 Hematocrit 32 % Low 35-47 Mean Corpuscular Volume 92 fL N 80-97 Mean Corpuscular Hemoglobin 31 pg N 27-31 Mean Corpuscular HGB Conc 33 g/dL N 31-36 Red Cell Distribution Width 15 % N 10.5-15 Platelet Count 155 10^3/uL N 150-450 Mean Platelet Volume 10 um3 N 7.4-10.4 Abs Neutrophils 5.1 10^3/uL N 1.5-7.7 Abs Lymphocytes 1.1 10^3/uL N 1.0-4.8 Abs Monocytes 0.9 10^3/uL High 0-0.8 Abs Eosinophils 0.2 10^3/uL N 0-0.6 Abs Basophils 0.1 10^3/uL N 0-0.2 Abs Nucleated RBC 0 10^3/uL N Granulocyte % 70.2 % N 38-83 Lymphocyte % 15.1 % Low 25-47 Monocyte % 11.8 % High 1-9 Eosinophil % 2.2 % N 0-6 Basophil % 0.7 % N 0-2 Nucleated Red Blood Cells % 0 N Laboratory test 09/22/2014 [facility] Erythrocyte Sed 57 mm/Hr High 0-[address] [place] [address] [phone] CRP High Sensitivity 3.54 mg/L N 48 Comp Metabolic Panel 09/22/2014 [facility] Sodium 132 mmol/L Low 133-[address] [place] [address] [phone] Potassium 4.2 mmol/L N 3.5-5.0 Chloride 100 mmol/L Low 101-111 Co2 Carbon Dioxide 27 mmol/L N 22-32 Anion Gap 5 mmol/L N 2-11 Glucose 111 mg/dL High 70-100 Blood Urea Nitrogen 19 mg/dL N 6-24 Creatinine 1.40 mg/dL High 0.51-0.95 BUN/Creatinine Ratio 13.6 N 8-20 Calcium 9.5 mg/dL N 8.6-10.3 Total Protein 6.9 g/dL N 6.4-8.9 Albumin 3.8 g/dL N 3.2-5.2 Globulin 3.1 g/dL N 2-4 Albumin/Globulin Ratio 1.2 N 1-3 Total Bilirubin 0.40 mg/dL N 0.2-1.0 Alkaline Phosphatase 75 U/L N 34-104 Alt 15 U/L N 7-52 Ast 17 U/L N 13-39 Egfr Non- 36.9 N >60 Egfr 47.4 N >60 49 Laboratory test 08/22/2014 [facility] Vitamin B12 1206 High 180-914 50, [address] pg/[place] [address] [phone] Free T4 0.88 ng/mL N 0.61-1.12 52 TSH (Thyroid Stimulating Horm) 0.47 IU/mL N 0.34-5.60 53 Terra (Anti-Nuclear AB) Screen Reflexed to FA Abnormal Negative 54 Terra Hep-2 08/22/2014 [facility] Terra Pattern Speckled N Negative [address] [place] [address] [phone] Terra Titer 1:98962 N <1:80 Terra Reviewed By MD Crow Ashby <SEE NOTE> N 55 Laboratory test 08/22/2014 [facility] Anti Ssa/Ro >8.0 U Abnormal [address] [place] [address] [phone] SS-B/La Antibody 0.4 U N 57 Protein 08/22/2014 [facility] Total 7.2 g/dL N 6.3 - Electrophoresis [address] Protein(Pep) 7.9 [place] [address] [phone] Albumin 3.3 g/dL Abnormal 3.4-4.7 Alpha-1 Globulin 0.2 g/dL N 0.1-0.3 Alpha-2 Globulin 0.8 g/dL N 0.6-1.0 Beta Globulin 1.2 g/dL N 0.7-1.2 Gamma Globulin 1.7 g/dL Abnormal 0.6-1.6 Albumin/Globulin Ratio 0.83 N Impression See Comment N 58 Laboratory test 06/21/2014 [facility] TSH (Thyroid 0.42 IU/mL N 0.34-5.[address] [place] [address] Horm) [phone] Free T4 0.91 ng/mL N 0.61-1.12 Vitamin B12 > 1450 pg/mL High 180-914 59 Terra (Anti-Nuclear AB) Screen Reflexed to FA Abnormal Negative Protein 06/21/2014 [facility] Total 7.2 g/dL N 6.3 - Electrophoresis [address] Protein(Pep) 7.9 [place] [address] [phone] Albumin 3.2 g/dL Abnormal 3.4-4.7 Alpha-1 Globulin 0.3 g/dL N 0.1-0.3 Alpha-2 Globulin 0.8 g/dL N 0.6-1.0 Beta Globulin 1.3 g/dL Abnormal 0.7-1.2 Gamma Globulin 1.7 g/dL Abnormal 0.6-1.6 Albumin/Globulin Ratio 0.82 N Impression See Comment N 60 Ssa/SSB Abs Igg 06/21/2014 [facility] SS-A/Ro Antibody >8.0 U Abnormal [address] [place] [address] [phone] SS-B/La Antibody 0.4 U N 62 Terra Hep-2 06/21/2014 [facility] Terra Pattern Speckled N Negative [address] [place] [address] [phone] Terra Titer Greater than 102 <SEE NOTE> N <1:80 63 Terra Reviewed By MD Crow Ashby <SEE NOTE> N 64 Hemoglobin/Hematacrit 05/23/2014 [facility] Hemoglobin 11.0 Low 12.0-16.[address] g/[place] [address] [phone] Hematocrit 33 % Low 35-47 1 Collected from [id number] through [id number] 07:45. 2 SEE RESULT BELOW Name: SRINI JEFFRIES Jaxon : [address]: Lg Machado MD Acct: [id number] Unit: [id number] AGE: 77 Location: LAB Re07/01/17 SEX: F Status: REG REF SPEC: [id number] MARIA M: 07/01/17-1099 DR: Lg Machado MD REQ: [id number] RECD: 07/01/17 STATUS: COMP [facility] DR: Virgilio Rodriguez SAW SETTER _ SOURCE: URINE SPDESC: ORDERED: Urine Culture Procedure Result Reported Site Urine Culture Final 07/02/17- 1439 ML No Growth (<1,000 CFU/mL) * ML - MAIN LAB ([facility]) . END OF REPORT * ML=Testing performed at Main Lab DEPARTMENT OF PATHOLOGY, [address] [place] [address] Crow Fraser M.D. Director [facility] # [id number] 3 Because ethnic data is not always readily available, this report includes an eGFR for both -Americans and non- Americans. The National Kidney Disease Education Program (NKDEP) does not endorse the use of the MDRD equation for patients that are not between the ages of 18 and 70, are , have extremes of body size, muscle mass, or nutritional status, or are non- or non-. According to the National Kidney Foundation, irrespective of diagnosis, the stage of the disease is based on the level of kidney function: Stage Description GFR(mL/min/1.73 m(2)) 1 Kidney damage with normal or decreased GFR 90 2 Kidney damage with mild decrease in GFR 60-89 3 Moderate decrease in GFR 30-59 4 Severe decrease in GFR 15-29 5 Kidney failure <15 (or dialysis) 4 Desirable <150 Borderline high 150-199 High 200-499 Very High >500 5 Desirable <200 Borderline high 200-239 High >239 6 Low <40 Desirable: 40-60 High: >60 7 Desirable: <100 mg/dL Near Optimal: 100-129 mg/dL Borderline High: 130-159 mg/dL High: 160-189 mg/dL Very High: >189 mg/dL 8 Collected from [id number] 07:45. 9 Collected from [id number] 07:45. 10 Therapeutic target for the treatment of diabetes Mellitus patients is <7% HBA1C, and in selective patients <6.0%.Please refer to [place] Diabetes Association Diabetic care guidelines for further information. 11 Because ethnic data is not always readily available, this report includes an eGFR for both -Americans and non- Americans. The National Kidney Disease Education Program (NKDEP) does not endorse the use of the MDRD equation for patients that are not between the ages of 18 and 70, are , have extremes of body size, muscle mass, or nutritional status, or are non- or non-. According to the National Kidney Foundation, irrespective of diagnosis, the stage of the disease is based on the level of kidney function: Stage Description GFR(mL/min/1.73 m(2)) 1 Kidney damage with normal or decreased GFR 90 2 Kidney damage with mild decrease in GFR 60-89 3 Moderate decrease in GFR 30-59 4 Severe decrease in GFR 15-29 5 Kidney failure <15 (or dialysis) 12 Desirable <150 Borderline high 150-199 High 200-499 Very High >500 13 Desirable <200 Borderline high 200-239 High >239 14 Low <40 Desirable: 40-60 High: >60 15 Desirable: <100 mg/dL Near Optimal: 100-129 mg/dL Borderline High: 130-159 mg/dL High: 160-189 mg/dL Very High: >189 mg/dL 16 Therapeutic target for the treatment of diabetes Mellitus patients is <7% HBA1C, and in selective patients <6.0%.Please refer to [place] [employer] Association Diabetic care guidelines for further information. 17 Because ethnic data is not always readily available, this report includes an eGFR for both -Americans and non- Americans. The National Kidney Disease Education Program (NKDEP) does not endorse the use of the MDRD equation for patients that are not between the ages of 18 and 70, are , have extremes of body size, muscle mass, or nutritional status, or are non- or non-. According to the National Kidney Foundation, irrespective of diagnosis, the stage of the disease is based on the level of kidney function: Stage Description GFR(mL/min/1.73 m(2)) 1 Kidney damage with normal or decreased GFR 90 2 Kidney damage with mild decrease in GFR 60-89 3 Moderate decrease in GFR 30-59 4 Severe decrease in GFR 15-29 5 Kidney failure <15 (or dialysis) 18 Acute inflammation: >10.00 19 Because ethnic data is not always readily available, this report includes an eGFR for both -Americans and non- Americans. The National Kidney Disease Education Program (NKDEP) does not endorse the use of the MDRD equation for patients that are not between the ages of 18 and 70, are , have extremes of body size, muscle mass, or nutritional status, or are non- or non-. According to the National Kidney Foundation, irrespective of diagnosis, the stage of the disease is based on the level of kidney function: Stage Description GFR(mL/min/1.73 m(2)) 1 Kidney damage with normal or decreased GFR 90 2 Kidney damage with mild decrease in GFR 60-89 3 Moderate decrease in GFR 30-59 4 Severe decrease in GFR 15-29 5 Kidney failure <15 (or dialysis) 20 Acute inflammation: >10.00 21 Because ethnic data is not always readily available, this report includes an eGFR for both -Americans and non- Americans. The National Kidney Disease Education Program (NKDEP) does not endorse the use of the MDRD equation for patients that are not between the ages of 18 and 70, are , have extremes of body size, muscle mass, or nutritional status, or are non- or non-. According to the National Kidney Foundation, irrespective of diagnosis, the stage of the disease is based on the level of kidney function: Stage Description GFR(mL/min/1.73 m(2)) 1 Kidney damage with normal or decreased GFR 90 2 Kidney damage with mild decrease in GFR 60-89 3 Moderate decrease in GFR 30-59 4 Severe decrease in GFR 15-29 5 Kidney failure <15 (or dialysis) 22 Acute inflammation: >10.00 23 Because ethnic data is not always readily available, this report includes an eGFR for both -Americans and non- Americans. The National Kidney Disease Education Program (NKDEP) does not endorse the use of the MDRD equation for patients that are not between the ages of 18 and 70, are , have extremes of body size, muscle mass, or nutritional status, or are non- or non-. According to the National Kidney Foundation, irrespective of diagnosis, the stage of the disease is based on the level of kidney function: Stage Description GFR(mL/min/1.73 m(2)) 1 Kidney damage with normal or decreased GFR 90 2 Kidney damage with mild decrease in GFR 60-89 3 Moderate decrease in GFR 30-59 4 Severe decrease in GFR 15-29 5 Kidney failure <15 (or dialysis) 24 Acute inflammation: >10.00 25 CALL RESULTS TO ONC [id number] 26 faxed to PCP 27 Because ethnic data is not always readily available, this report includes an eGFR for both -Americans and non- Americans. The National Kidney Disease Education Program (NKDEP) does not endorse the use of the MDRD equation for patients that are not between the ages of 18 and 70, are , have extremes of body size, muscle mass, or nutritional status, or are non- or non-. According to the National Kidney Foundation, irrespective of diagnosis, the stage of the disease is based on the level of kidney function: Stage Description GFR(mL/min/1.73 m(2)) 1 Kidney damage with normal or decreased GFR 90 2 Kidney damage with mild decrease in GFR 60-89 3 Moderate decrease in GFR 30-59 4 Severe decrease in GFR 15-29 5 Kidney failure <15 (or dialysis) 28 Acute inflammation: >10.00 29 CALL RESULTS OF HH STAT TO ONC [id number] Verbal to by [id number] at 1145 on 12/25/15. Results read back accurately. 30 WANTED HH STAT RESULTS CALLED PER ORDER. [id number] Interpretation: Positive (>=1.0) REFERENCE VALUE <1.0 (Negative) Test Performed by: [place] [address] Automatic Pattern Edger: Luis Mejia II, M.D., Ph.D. 32 REFERENCE VALUE <1.0 (Negative) Test Performed by: [place] [address] Automatic Pattern Edger: Luis Mejia II, M.D., Ph.D. 33 Verbal to by [id number] ON 12/25/15. Results read back accurately. 34 SPECKLED AND MITOCONDRIAL POSSIBLE ANTI KIRESIN (EP) 35 Crow Fraser 36 Desirable <150 Borderline high 150-199 High 200-499 Very High >500 37 Desirable <200 Borderline high 200-239 High >239 38 Low <40 Desirable: 40-60 High: >60 39 Desirable: <100 mg/dL Near Optimal: 100-129 mg/dL Borderline High: 130-159 mg/dL High: 160-189 mg/dL Very High: >189 mg/dL 40 Therapeutic target for the treatment of diabetes Mellitus patients is <7% HBA1C, and in selective patients <6.0%.Please refer to [place] Diabetes Association Diabetic care guidelines for further information. 41 Unable to calculate due to low microalbumin 42 Acute inflammation: >10.00 43 The above NAY screen is designed for the detection of antibodies to extractable nuclear antigen (NAY) in human serum. It is a combination test for the detection of antibodies to ASSEMBLER BICYCLE, Sm, SS-A (Ro), and SS-B (La) nuclear antigens. 44 Crow Fraser 45 FASTING 46 REFERENCE VALUE <1.0 (Negative) Test Performed by: [place] [address] Automatic Pattern Edger: Juventino Guevara M.D. 47 REFERENCE VALUE <1.0 (Negative) Test Performed by: [place] [address] Automatic Pattern Edger: Juventino Guevara M.D. 48 Low risk: <1.00 Average risk: 1.00-3.00 High risk: >3.00 49 Because ethnic data is not always readily available, this report includes an eGFR for both -Americans and non- Americans. The National Kidney Disease Education Program (NKDEP) does not endorse the use of the MDRD equation for patients that are not between the ages of 18 and 70, are , have extremes of body size, muscle mass, or nutritional status, or are non- or non-. According to the National Kidney Foundation, irrespective of diagnosis, the stage of the disease is based on the level of kidney function: Stage Description GFR(mL/min/1.73 m(2)) 1 Kidney damage with normal or decreased GFR 90 2 Kidney damage with mild decrease in GFR 60-89 3 Moderate decrease in GFR 30-59 4 Severe decrease in GFR 15-29 5 Kidney failure <15 (or dialysis) 50 with immunofixation 51 Normal Range 180 to 914 Indeterminate Range 145 to 180 Deficient Range <145 52 with immunofixation 53 with immunofixation 54 with immunofixation 55 Crow Fraser 56 Interpretation: Positive (>=1.0) REFERENCE VALUE <1.0 (Negative) Test Performed by: [place] [address] Automatic Pattern Edger: Juventino Guevara M.D. 57 REFERENCE VALUE <1.0 (Negative) Test Performed by: [place] [address] Automatic Pattern Edger: Juventino Guevara M.D. 58 RESULT: Polyclonal hypergammaglobulinemia Test Performed by: [place] [address] Automatic Pattern Edger: Juventino Guevara M.D. 59 Normal Range 180 to 914 Indeterminate Range 145 to 180 Deficient Range <145 60 RESULT: Polyclonal hypergammaglobulinemia Test Performed by: [place] [address] Automatic Pattern Edger: Sánchez Ambriz III, M.D. 61 Interpretation: Positive (>=1.0) -- REFERENCE VALUE -- <1.0 (Negative) 62 -- REFERENCE VALUE -- <1.0 (Negative) Test Performed by: [place] [address] Automatic Pattern Edger: Sánchez Ambriz III, M.D. 63 Greater than [id number] 64 Crow Fraser 65 CALL RESULTS TO ONC 4101 Procedures Date Code Description Status 12/18/2018 07487 EKG Tracing & Interpretation Completed 06/19/2017 91880 Stress Test Completed 06/19/2017 68277 Myocardial Perfusion Imaging Tomographic (Spect) Completed Multiple Studies 05/17/2016 25503 EKG Tracing & Interpretation Completed 02/05/2016 38797 EKG Tracing & Interpretation Completed 01/29/2016 21179 Treadmill Interp/Report Only Completed 01/29/2016 25148 Stress Test Supervsn W/Out I/R Completed 01/29/2016 35089 EKG, Interpretation Only Completed 01/28/2016 17611 ECHO Transthorasic Realtime 2D W Doppler & Color Flow Completed Hosp 01/28/2016 50356 EKG, Interpretation Only Completed 01/28/2016 67972 EKG, Interpretation Only Completed 12/19/2015 05953 Nerve Conduction 03-04 Studies Completed 12/19/2015 34003 Needle Electromyography Each Extremity W/Related Completed Paraspinal Areas 08/15/2015 28170 Stress Test Completed 08/15/2015 79728 Myocardial Perfusion Imaging Tomographic (Spect) Completed Multiple Studies 08/07/2015 13388 EKG Tracing & Interpretation Completed 11/14/2014 [id number] Diabetic Retinal Eye Exam Completed 09/29/2014 81174 Inject/Drain Joint/Bursa Major W/O US Completed 09/28/2014 97859 Inject/Drain Joint/Bursa Major W/O US Completed 08/23/2014 72239 Nerve Conduction 11-12 Studies Completed 05/16/2014 96549 Artery Study Extremity Mult Levels Bilateral Completed 05/09/2014 41980 Stress Test Completed 05/09/2014 44874 Myocardial Perfusion Imaging Tomographic (Spect) Completed Multiple Studies 05/09/2014 62883 Myocardial Perfusion Imaging Tomographic (Spect) Completed Multiple Studies 05/04/2014 52285 EKG Tracing & Interpretation Completed 05/04/2013 00850 EKG Tracing & Interpretation Completed 01/12/2012 50842 Color Flow Doppler/Interp & Reprt Completed 01/12/2012 24315 Pulse Wave/Continuous-Interp.RPT Completed 01/12/2012 05847 ECHO Transthorasic Realtime 2D W Doppler & Color Flow Completed Hosp 01/10/2012 58948 EKG, Interpretation Only Completed 12/28/2008 20527402 Colonoscopy Completed Encounters Type Date Location Provider Dx Diagnosis Office Visit 12/05/2017 Rheumatology Clemencia Rodriguez, M35.00 Sicca syndrome, 11:00a Services Of Lay Out Inspector LABEL STITCHER unspecified Z79.899 Other fci (current) drug therapy J30.9 Allergic rhinitis, unspecified Office Visit 09/01/2017 10:45a Pulmonology And Teresa G47.33 Obstructive sleep Sleep Services Of MD Jose Alfredo apnea (adult) [employer] Inspector (pediatric) E66.09 Other obesity due to excess calories Office Visit 08/15/2017 10:30a [facility] Nadine Moctezuma, 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 R42 Dizziness and giddiness E11.65 Type 2 diabetes mellitus with hyperglycemia E78.00 Pure hypercholesterolemia, unspecified Office Visit 07/11/2017 10:00a Rheumatology Zsofia F43.23 Adjustment Services Of IRASEMA Mcintyre disorder with mixed anxiety and depressed mood M25.562 Pain in left knee M35.00 Sicca syndrome, unspecified E16.1 Other hypoglycemia Office Visit 06/06/2017 1:00p Rheumatology Zsofia M35.00 Sicca syndrome, Services Of IRASEMA Mcintyre unspecified F43.23 Adjustment disorder with mixed anxiety and depressed mood Z79.899 Other intermediate school teacher (current) drug therapy Office Visit 02/04/2017 10:30a Rheumatology Zsofia M35.00 Sicca syndrome, Services Of IRASEMA Mcintyre unspecified N18.3 Chronic kidney disease, stage 3 (moderate) M47.816 Spondylosis w/o myelopathy or radiculopathy, lumbar region M25.569 Pain in unspecified knee Z79.899 Other fci (current) drug therapy Office Visit 01/21/2017 1:45p [facility] Nadine Moctezuma, E16.0 Drug- induced Of Lizett M.D. hypoglycemia without coma R42 Dizziness and giddiness I25.10 Athscl heart disease of [place] coronary artery w/o ang pctrs I10 Essential (primary) hypertension K21.0 Gastro-esophageal reflux disease with esophagitis Office Visit 12/12/2016 2:00p [facility] Dilma Nagy, I10 Essential (primary) Of Lizett PA hypertension R42 Dizziness and giddiness R26.81 Unsteadiness on feet Office Visit 11/22/2016 1:45p [facility] Nadine Moctezuma, I25.119 Athscl heart Of Lay Out Inspector M.D. disease of [place] cor art w unsp ang pctrs I10 Essential (primary) hypertension I95.2 Hypotension due to drugs R42 Dizziness and giddiness M79.605 Pain in left leg E78.00 Pure hypercholesterolemia, unspecified Office Visit 09/24/2016 1:00p Rheumatology Zsofia M35.00 Sicca syndrome, Services Of [facility] IRASEMA Rodriguez unspecified N18.3 Chronic kidney disease, stage 3 (moderate) D64.9 Anemia, unspecified Z79.899 Other fci (current) drug therapy Office Visit 08/30/2016 1:15p Pulmonology And Teresa G47.33 Obstructive sleep Sleep Services Of MD Jose Alfredo apnea (adult) [facility] (pediatric) Office Visit 07/09/2016 11:30a [facility] Dilma Nagy, N18.3 Chronic kidney Of [facility] PA disease, stage 3 (moderate) I25.119 Athscl heart disease of [place] cor art w unsp ang pctrs I95.2 Hypotension due to drugs R42 Dizziness and giddiness Office Visit 06/07/2016 1:30p Rheumatology Zsofia M35.00 Sicca syndrome, Services Of [facility] IRASEMA Rodriguez unspecified E11.65 Type 2 diabetes mellitus with hyperglycemia I10 Essential (primary) hypertension R76.8 Other specified abnormal immunological findings in serum N18.3 Chronic kidney disease, stage 3 (moderate) M47.816 Spondylosis w/o myelopathy or radiculopathy, lumbar region Z79.899 Other intermediate school teacher (current) drug therapy Office Visit 05/17/2016 11:45a [facility] Nadine Moctezuma, R07.9 Chest pain, Of Lizett Stoll.Pepe unspecified I25.10 Athscl heart disease of [place] coronary artery w/o ang pctrs I31.9 Disease of pericardium, unspecified I10 Essential (primary) hypertension E78.0 Pure hypercholesterolemia Z68.41 Body mass index (BMI) 40.0-44.9, adult Office Visit 05/16/2016 [place] Christina James R20.2 Paresthesia of 11:45a Services Of [facility] Nadya Watters skin Office Visit 03/01/2016 Rheumatology Clemencia Rodriguez, M35.00 Sicca syndrome, 2:00p Services Of [facility] LABEL STITCHER unspecified R76.8 Other specified abnormal immunological findings in serum Z79.899 Other intermediate school teacher (current) drug therapy Office Visit 02/27/2016 1:15p Pulmonology And Teresa G47.33 Obstructive sleep Sleep Services Of MD Jose Alfredo apnea (adult) Lay Out Inspector (pediatric) E66.09 Other obesity due to excess calories Office Visit 02/16/2016 10:30a [facility] Dilma Nagy, R07.9 Chest pain, Of Lay Out Inspector PA unspecified I25.119 Athscl heart disease of [place] cor art w unsp ang pctrs E66.01 Morbid (severe) obesity due to excess calories K21.0 Gastro-esophageal reflux disease with esophagitis Office Visit 02/05/2016 11:30a [facility] Nadine Moctezuma, R07.9 Chest pain, Of Lay Out Inspector M.DSuzi unspecified I25.119 Athscl heart disease of [place] cor art w [facility] pctrs J30.2 Other seasonal allergic rhinitis R42 Dizziness and giddiness E66.01 Morbid (severe) obesity due to excess calories I10 Essential (primary) hypertension E11.40 Type 2 diabetes mellitus with diabetic neuropathy, unsp E78.0 Pure hypercholesterolemia K44.9 Diaphragmatic hernia without obstruction or gangrene Z68.42 Body mass index (BMI) 45.0-49.9, adult Office Visit 01/30/2016 12:55p [facility] Lisseth R07.9 Chest pain, Assoc,clau Gupta M.D. unspecified Hospitalists K21.0 Gastro-esophageal reflux disease with esophagitis Office Visit 01/30/2016 12:40p [facility] Abraham Cantu R07.9 Chest pain, Of Lay Out Inspector Nadya Shaw unspecified I25.10 Athscl heart disease of [place] coronary artery w/o ang pctrs Office Visit 01/29/2016 12:54p [facility] Lisseth R07.9 Chest pain, Assocclau M.D. unspecified Hospitalists K21.0 Gastro-esophageal reflux disease with esophagitis Office Visit 01/28/2016 12:54p [facility] Lisseth R07.9 Chest pain, Assoc,clau Gupta M.D. unspecified Hospitalists K21.0 Gastro-esophageal reflux disease with esophagitis I31.9 Disease of pericardium, unspecified Office Visit 01/28/2016 4:34p Te[facility] Kitty High R07.9 Chest pain, Cardiology Nadya Morton unspecified I25.10 Athscl heart disease of [place] coronary artery w/o ang pctrs E66.09 Other obesity due to excess calories E11.40 Type 2 diabetes mellitus with diabetic neuropathy, unsp Office Visit 01/27/2016 [facility] Roman Cantu R07.9 Chest pain, 12:53p Assoc,clau Burt M.D.,FACP unspecified Hospitalists K21.0 Gastro-esophageal reflux disease with esophagitis I31.9 Disease of pericardium, unspecified Office Visit 11/29/2015 10:45a Pulmonology And Teresa G47.33 Obstructive sleep Sleep Services Of MD Jose Alfredo apnea (adult) [facility] (pediatric) E66.01 Morbid (severe) obesity due to excess calories K21.9 Gastro-esophageal reflux disease without esophagitis Office Visit 11/22/2015 11:30a Rheumatology Zsofia M35.00 Sicca syndrome, Services Of IRASEMA Mcintyre unspecified E66.01 Morbid (severe) obesity due to excess calories I25.10 Athscl heart disease of [place] coronary artery w/o ang pctrs Z79.899 Other intermediate school teacher (current) drug therapy Office Visit 11/03/2015 11:15a Michael Nagy, E11.42 Type 2 diabetes Cardiology Of [place] mellitus with [facility] diabetic polyneuropathy I25.10 Athscl heart disease of [place] coronary artery w/o ang pctrs D64.9 Anemia, unspecified I10 Essential (primary) hypertension Office Visit 09/20/2015 11:15a Orthopedic Jeremias Rojo, M70.52 Other bursitis Services Of Nadya of knee, left C.M.A. knee M17.12 Unilateral primary osteoarthritis, left knee Office Visit 08/24/2015 11:45a [facility] Neurologic Kimberli James R20.2 Paresthesia of Services Of Lizett Watters M.D. skin E11.42 Type 2 diabetes mellitus with diabetic polyneuropathy G56.01 Carpal tunnel syndrome, right upper limb Office Visit 08/22/2015 10:30a Rheumatology Zsofia M35.00 Sicca syndrome, Services Of [facility] Michael, LABEL STITCHER unspecified Z79.899 Other intermediate school teacher (current) drug therapy E11.40 Type 2 diabetes mellitus with diabetic neuropathy, uns Office Visit 08/18/2015 1:15p [facility] Nadine Moctezuma, I25.10 Athscl heart Of [facility] M.DSuzi disease of [place] coronary artery w/o ang pctrs D64.9 Anemia, unspecified Office Visit 08/07/2015 10:30a [facility] Nadine Moctezuma, I25.119 Athscl heart Of [facility] M.D. disease of [place] cor art w [facility] ang pctrs R07.9 Chest pain, unspecified M35.00 Sicca syndrome, unspecified I10 Essential (primary) hypertension E78.0 Pure hypercholesterolemia E11.40 Type 2 diabetes mellitus with diabetic neuropathy, [facility] Office Visit 06/21/2015 11:00a Orthopedic Services Bharti Casas, 724.3 Sciatica Of C.M.A. ANP-C 726.5 Enthesopathy Of Hip Region Office Visit 05/29/2015 3:00p Rheumatology Stephan Mott, 710.2 Sicca Syndrome Services Of Lizett [place] 357.2 Polyneuropathy In Diabetes 715.09 Osteoarthrosis Generalized Multiple Sites 338.4 Chronic Pain Syndrome 722.93 Disc Disorder Other & Unspec Lumbar Region 250.60 Diabetes W/ Neurological Manifestations Type II Controlled Office Visit 05/24/2015 10:30a Orthopedic Jeremias 726.5 Enthesopathy Of Services Of Nadya Rojo Hip Region C.M.A. 728.89 Muscle Disorders Other Office 03/24/2015 Neurohospitalist Kimberli James 357.2 Polyneuropathy In Visit 10:15a Clinic Nadya Watters Diabetes 354.0 Carpal Tunnel Syndrome 719.45 Pain Joint Pelvic Region & Thigh 250.60 Diabetes W/ Neurological Manifestations Type II Controlled Office Visit 12/15/2014 10:30a Pulmonology And Teresa 327.23 Obstructive Sleep Sleep Services Of MD Jose Alfredo Apnea Adult & [facility] Pediatric 278.00 Obesity Unspec Office Visit 11/09/2014 11:00a Rheumatology Adrian Salgado, 727.3 Bursitis Other Services Of Lizett [place] 729.1 Myalgia & Myositis Unspec 710.2 Sicca Syndrome 357.2 Polyneuropathy In Diabetes Office Visit 11/04/2014 Neurohospitalist Kimberli James 354.0 Carpal Tunnel 11:15a Clinic Nadya Watters Syndrome 357.2 Polyneuropathy In Diabetes Office Visit 10/31/2014 2:00p Neurosurgery Zeke Valdes 721.1 Spondylosis Services Of Lizett Cortes M.D. Cervical W/ Myelopathy 721.3 Spondylosis Lumbar W/O Myelopathy Office Visit 09/13/2014 Rheumatology Adrian Salgado, 357.2 Polyneuropathy In 2:00p Services Of Lizett [place] Diabetes 710.2 Sicca Syndrome 715.09 Osteoarthrosis Generalized Multiple Sites 729.5 Pain In Limb 724.2 Lumbago 729.1 Myalgia & Myositis Unspec Office Visit 08/30/2014 Pulmonology And Teresa 327.23 Obstructive Sleep 10:45a Sleep Services Of MD Jose Alfredo Apnea Adult & [facility] Pediatric Office Visit 08/23/2014 [place] [facility] Kimberli James 250.60 Diabetes W/ 1:00p Services Of Danna Coles M.D. Manifestations Type II Controlled 357.2 Polyneuropathy In Diabetes 354.0 Carpal Tunnel Syndrome Office Visit 08/19/2014 [place] Nadine Moctezuma, 414.01 Coronary 2:45p Cardiology Of [place] Atherosclerosis [facility] [place] 272.0 Hypercholesterolemia Pure 401.1 Hypertension Benign Office Visit 05/20/2014 [facility] [place] Nagy 414.01 Coronary 10:30a Cardiology Of [place] Atherosclerosis [facility] [place] 414.9 Ischemic Heart Disease Chronic Unspec 401.9 Hypertension Unspec 250.00 Diabetes Mellitus W/O Compl Type II Or Unspec Controlled 435.9 TIA Ischemia Cerebral Transient Unspec Office Visit 05/04/2014 [place] Nadine Moctezuma, 414.01 Coronary 8:15a Cardiology Of [place] Atherosclerosis [facility] [place] 786.59 Pain Chest Other 285.9 Anemia Unspec 729.5 Pain In Limb Office Visit 05/04/2013 Michael Moctezuma 414.01 Coronary 12:45p Cardiology Of [place] Atherosclerosis [facility] [place] 786.59 Pain Chest Other 401.9 Hypertension Unspec 250.00 Diabetes Mellitus W/O Compl Type II Or Unspec Controlled Office Visit 09/30/2012 Michael Moctezuma 414.01 Coronary 11:30a Cardiology Of JacobD. Atherosclerosis [place] 401.9 Hypertension Unspec 272.0 Hypercholesterolemia Pure Office Visit 11/07/2011 Neurosurgery Eulogio James 847.0 Sprains & Strains 1:30p Services Of Lizett Bell M.D. Neck Office Visit 02/13/2011 Alissa James 724.2 Lumbago 2:00p Services Of Lizett Bell M.D. Office Visit 01/12/2010 [facility] 558.9 Gastroenteritis & 2:00a Assocclau M.D. Colitis Hospitalists Noninfectious Other 250.00 Diabetes Mellitus W/O Compl Type II Or Unspec Controlled 428.0 Congestive Heart Failure Unspecified 414.9 Ischemic Heart Disease Chronic Unspec Office Visit 01/11/2010 [facility] Lisseth 558.9 Gastroenteritis & 2:00a Assclau iqbal M.D. Colitis Hospitalists Noninfectious Other 276.51 Dehydration 799.3 Debility Unspec Office Visit 01/10/2010 [facility] 558.9 Gastroenteritis & 2:00a Assclau iqbal M.D. Colitis Hospitalists Noninfectious Other 276.51 Dehydration Office Visit 01/09/2010 12:30a [facility] Monica Herve, 276.51 Dehydration Assclau iqbal M.D. Hospitalists 787.03 Vomiting Alone 787.91 Diarrhea 781.2 Gait Abnormality Office Visit 08/25/2007 1:00p Alissa James 726.5 Enthesopathy Of Services Of Lizett Bell M.D. [facility] Plan of Treatment Future Appointment(s):01/28/2019 3:00 pm - Nadine Moctezuma M.D. at [facility]01/01/2019 1:30 pm - Traveling ECHO 1 at [facility]12/30/2018 1:30 pm - Ica Nuclear Schedule at [facility]2018 11:00 am - Nadine Moctezuma M.D. at [facility]12/18/2018 - Nadine Moctezuma M.D.I25.119 Atherosclerotic heart disease of [place] coronary artery withNew Orders:Stress Test, Pharmacologic Nuclear, Scheduled: Echocardiogram, Ordered: 12/18/18Follow up:after [id number] Pure hypercholesterolemia, unspecifiedComments:Excellent control.E11.8 Type 2 diabetes mellitus with unspecified [id number] Gastro-esophageal reflux disease without esophagitisComments:possible reason for the chest painI73.9 Peripheral vascular disease, bemsgdmlarsK97.0 Disorientation, unspecified
[2019-01-02 11:06] VITALS: BP 178/88
== END 2019-01-02 11:05 | disposition home or self-care (01) ==
LOC: ED 08:26
DX: M25.562 Pain in left knee (principal); Z87.891 Personal history of nicotine dependence; Z91.81 History of falling
CPT/HCPCS: 99282; A9270-GY

== ENCOUNTER 2019-01-20 06:32 | Day surgery (SDC) | payer MEDICARE ==
[~2019-01-20 06:32] MED LIST: Acetaminophen TAB* 325 MG PO PRN; Buffered Lidocaine 1% SYRIN* 1 ML/SYRINGE INTRADERM ONE; mitoMYcin 0.2 MG (0.02%) in Sterile Water for Inj* 1 ML SCH
[2019-01-20] MEDS ORDERED: Midazolam* 1 MG/ML 2 ML VIAL (2 MG) ONE (07:41)
[2019-01-20] MEDS ORDERED: fentaNYL* 50 MCG/ML 2 ML VIAL (100 MCG VIAL) ONE (07:41)
--- NOTE | 2019-01-20 09:26 | OP ---
DATE OF OPERATION: 01/20/19 - [facility] DATE OF : 42 SURGEON: Lg Ro M.D. ANESTHESIA: Local with MAC. PREOPERATIVE DIAGNOSIS: Uncontrolled glaucoma, right eye. POSTOPERATIVE DIAGNOSIS: Uncontrolled glaucoma, right eye. OPERATIVE PROCEDURE: XEN stent, right eye. COMPLICATIONS: None. DESCRIPTION OF PROCEDURE: The patient was prepped and draped in the usual sterile fashion. A lid speculum was placed. Paracentesis made at the 11 o' clock position using the 75 blade. Anterior chamber irrigated with 1% non- preservative intracameral lidocaine followed by DisCoVisc. A 1.8 mm clear corneal incision was made at the 7 o'clock position. The XEN stent placed without difficulty using its shooter at the 1 o'clock position. Mitomycin-C 0.2 mg/mL 0.1 mL injected near the opening of the XEN stent subconjunctivally. Anterior chamber irrigated with balanced salt solution. [id number]/CPS #: [id number] [facility]
[2019-01-20 09:35] VITALS: BP 181/78
[2019-01-20] MEDS ORDERED: Neomycin/Polymy/Dex OPTH.SUSP* MAXITROL 0.1% 5 ML ONE (09:54)
[2019-01-20] MEDS ORDERED: Povidone Iodine 5% OPTH* 30 ML BTL ONE (09:54)
[2019-01-20] MEDS ORDERED: Proparacaine 0.5% OPHTH.SOL* 15 ML BTL ONE (09:54)
[2019-01-20] MEDS ORDERED: Lidocaine 2% EPI 1:200000 MPF*10-20 ML VIAL ONE (09:54)
[2019-01-20] MEDS ORDERED: Lidocaine 1%* 5 ML VIAL ONE (09:54)
== END 2019-01-20 08:45 | disposition home or self-care (01) ==
LOC: OREAST 06:32
PROVIDERS: ATTEND Specialist
DX: H40.1111 Primary open-angle glaucoma, right eye, mild stage (principal); E11.3293 Type 2 diabetes mellitus with mild nonproliferative diabetic retinopathy without macular edema, bilateral; Z79.4 Long term (current) use of insulin; M06.9 Rheumatoid arthritis, unspecified; G47.33 Obstructive sleep apnea (adult) (pediatric); Z87.891 Personal history of nicotine dependence; I20.8 Other forms of angina pectoris; I73.9 Peripheral vascular disease, unspecified
CPT/HCPCS: A9270-GY; C1725; J2250; J3010; J9280

== ENCOUNTER 2019-06-25 16:06 | Observation (INO) | payer MEDICARE ==
--- NOTE | 2019-06-25 16:16 | ED ---
HPI Chest Pain - HPI Summary HPI Summary: This patient is a 79 year old female presenting to [facility] with a chief complaint of chest pain one hour ago. EMS states the assisted gave her 2 nitro which helped relieve most of the pain, and then EMS administered aspirin which relieved the rest of the pain. She states she was sitting down when it started. She reports a Hx of DVT. She denies SOB. Medications reviewed. Allergies noted. Albuterol 2.5MG/3ML (0.083%)* [Ventolin 2.5 MG/3 ML NEB.AMANDA*] 2.5 mg INH QID PRN 01/27/16 [History Confirmed 01/14/19] Atorvastatin* [Lipitor 20 MG*] 20 mg PO QAM 01/27/16 [History Confirmed 01/14/19 ] Fluticasone NASAL SPRAY 50MCG* [Flonase NASAL SPRAY 50MCG*] 2 spray NASAL DAILY PRN 01/27/16 [History Confirmed 01/14/19] Gabapentin CAP(*) [Neurontin 300 CAP(*)] 600 mg PO TID 01/27/16 [History Confirmed 01/20/19] Isosorbide Mononitrate ER TAB* [Imdur ER TAB*] 30 mg PO QAM 01/27/16 [History Confirmed 01/14/19] Nitroglycerin TAB 0.4 MG* 0.4 mg SL Q5M PRN 01/27/16 [History Confirmed 01/14/19 ] traZODone TAB* [Desyrel TAB*] 50 mg PO BEDTIME 01/27/16 [History Confirmed 01/14] Ranolazine (NF) [Ranexa (NF)] 500 mg PO BID 30 Days tab 01/30/16 [Rx Confirmed 01/14/19] Albuterol inh POWDER (NF) [Proair Respiclick] 2 puff INH Q4HR PRN 04/03/17 [ History Confirmed 01/20/19] Diclofenac Sodium 1.5 % TOPICAL BID PRN 04/03/17 [History Confirmed 01/14/19] Fluticasone-Salmeterol 250-50* [Advair Diskus 250-50*] 1 puff INH BID 04/03/17 [ History Confirmed 01/14/19] Hydroxychloroquine TAB* [Plaquenil TAB*] 200 mg PO QAM 04/03/17 [History Confirmed 01/14/19] Insulin Lispro [Humalog Kwikpen] 3 - 6 units SUBCUT 1200 04/03/17 [History Confirmed 01/20/19] Insulin Lispro [Humalog Kwikpen] 6 - 8 units SUBCUT .AT DINNER 04/03/17 [ History Confirmed 01/20/19] Lisinopril TAB* [Prinivil TAB*] 10 mg PO QAM 04/03/17 [History Confirmed ] Ranitidine TAB (NF) [Zantac TAB (NF)] 300 mg PO QAM 04/03/17 [History Confirmed 01/14/19] Betaxolol-S 0.25%* [Betoptic-S 0.25%*] 1 drop BOTH EYES BID 05/19/17 [History Confirmed 01/14/19] Aspirin 81 mg CHEW TAB* 81 mg PO QAM 01/14/19 [History Confirmed 01/14/19] Beclomethasone Dipropionate [Qnasl] 2 spray BOTH NARES QAM 01/14/19 [History Confirmed 01/14/19] Ferrous Sulfate [Feosol] 325 mg PO BID 01/14/19 [History Confirmed 01/14/19] Insulin Glargine,Hum.rec.anlog [Lantus Solostar 5x3 ML PENS] 12 unit SUBCUT BEDTIME 01/14/19 [History Confirmed 01/20/19] Lidocaine PATCH 5%* [Lidoderm 5% Patch*] 1 patch TRANSDERM QAM 01/14/19 [ History Confirmed 01/14/19] Loratadine 10 mg PO QAM 01/14/19 [History Confirmed 01/14/19] Losartan Potassium [Cozaar] 25 mg PO QAM 01/14/19 [History Confirmed 01/14/19] Metoprolol Succinate [Kapspargo Sprinkle] 25 mg PO QAM 01/14/19 [History Confirmed 01/14/19] Travoprost Z 0.004% OPHTH (NF) [Travatan Z 0.004% OPTH (NF)] 1 drop LEFT EYE BEDTIME 01/14/19 [History Confirmed 01/14/19] buPROPion HCl [Bupropion HCl ER] 200 mg PO QAM 01/14/19 [History Confirmed 01/14] Methocarbamol TAB* [Robaxin 500 MG TAB*] 500 mg PO QID PRN 05/26/19 [History Confirmed 05/26/19] Mometasone Furoate [Elocon] 0.1 % TOPICAL DAILY PRN 05/26/19 [History Confirmed 05/26/19] oxyCODONE SR TAB(*) [Oxycontin 10 mg (*)] 10 mg PO TID 05/26/19 [History Confirmed 05/26/19] - History of Current Complaint Hx Obtained From: Patient Pain Scale Used: 0-10 Numeric - Additional Pertinent History Primary Care Physician: [id number] - Allergy/Home Medications Allergies/Adverse Reactions: Allergies Allergy/AdvReac Type Severity Reaction Status Date / Time clopidogrel [From Plavix] Allergy Unknown Verified 05/26/19 13:42 Reaction Details Home Medications: Home Medications Acetaminophen TAB* [Tylenol TAB*] 650 mg PO Q4H PRN 06/25/19 [History Confirmed 06/25/19] Betaxolol 0.5 %* [Betoptic 0.05%*] 1 drop LEFT EYE DAILY 06/25/19 [History Confirmed 06/25/19] Dextrose [Glucose] 4 gm PO DAILY PRN 06/25/19 [History Confirmed 06/25/19] Dorzolamide/Timolol OPTH (NF) [Cosopt (NF)] 1 drop LEFT EYE BID 06/25/19 [ History Confirmed 06/25/19] Fluticas/Salmet 115/21 HFA(NF) [Advair HFA 115/21 (NF)] 2 puff INH BID 06/25/19 [History Confirmed 06/25/19] Hydrocodone/Acetamin 10/325(NF [Howard 10/325 (NF)] 1 tab PO Q6H PRN 06/25/19 [ History Confirmed 06/25/19] Hydroxychloroquine TAB* [Plaquenil TAB*] 200 mg PO DAILY 06/25/19 [History Confirmed 06/25/19] Insulin ASPART (NF) [Novolog (NF)] 5 units SUBCUT AC 06/25/19 [History Confirmed 06/25/19] Isosorbide Mononitrate ER TAB* [Imdur ER TAB*] 30 mg PO DAILY 06/25/19 [History Confirmed 06/25/19] Lidocaine PATCH 5%* [Lidoderm 5% Patch*] 1 patch TRANSDERM DAILY 06/25/19 [ History Confirmed 06/25/19] Losartan TAB* [Cozaar TAB*] 25 mg PO DAILY 06/25/19 [History Confirmed 06/25/19] Methocarbamol TAB* [Robaxin 500 MG TAB*] 500 mg PO Q6HR PRN 06/25/19 [History Confirmed 06/25/19] Metoprolol Succinate XL TAB* [Toprol XL TAB*] 25 mg PO DAILY 06/25/19 [History Confirmed 06/25/19] Polyvinyl Alcohol/Povidone/Pf [Refresh] 1 drop BOTH EYES TID 06/25/19 [History Confirmed 06/25/19] buPROPion TAB* [Wellbutrin TAB*] 200 mg PO QAM 06/25/19 [History Confirmed 06/25] PMH/Surg Hx/FS Hx/Imm Hx Endocrine/Hematology History: Reports: Hx Anticoagulant Therapy - aggrenox, Hx Diabetes, Hx Anemia Denies: Hx Thyroid Disease Cardiovascular History: Reports: Hx Angina, Hx Hypertension, Hx Peripheral Vascular Disease, Other Cardiovascular Problems/Disorders - "bleeding around my heart" Denies: Hx Coronary Artery Disease, Hx Hypercholesterolemia, Hx Myocardial Infarction, Hx Pacemaker/ICD, Hx Valvular Heart Disease Respiratory History: Reports: Hx Asthma, Hx Pulmonary Embolism, Hx Sleep Apnea, Other Respiratory Problems/Disorders Denies: Hx Chronic Obstructive Pulmonary Disease (COPD) GI History: Reports: Hx Gastroesophageal Reflux Disease, Hx Irritable Bowel Denies: Hx Ulcer History: Reports: Other Problems/Disorders - KIDNEY DISEASE Musculoskeletal History: Reports: Hx Arthritis - OSTEOARTHRITIS, Hx Rheumatoid Arthritis, Hx Back Problems - low back pain Sensory History: Reports: Hx Cataracts, Hx Contacts or Glasses, Hx Glaucoma Denies: Hx Hearing Aid Opthamlomology History: Reports: Hx Cataracts, Hx Contacts or Glasses, Hx Glaucoma Neurological History: Reports: Hx Headaches, Other Neuro Impairments/Disorders - EARLY DEMENTIA Psychiatric History: Reports: Hx Depression Denies: Hx Panic Disorder - Cancer History Hx Chemotherapy: No Hx Radiation Therapy: No - Surgical History Surgery Procedure, Year, and Place: R TKR, LOWER BACK SURGERY, UPPER BACK SURGERY, HYSTERECTOMY, BILAT CATARACS,. CARPAL TUNNEL, ABDOMINAL TUMOR REMOVED , R PINKY TOE I AND D, THORACENTESIS MARCELINO '12, CARDIAC CATHERIZATION 04/29, NASAL SURGERY JUL 2012 Hx Anesthesia Reactions: No Infectious Disease History: Denies: Hx Hepatitis, Hx Human Immunodeficiency Virus (HIV), History Other Infectious Disease - Family History Known Family History: Positive: Hypertension - Mother's side, Diabetes - Father' s side - Social History Alcohol Use: None Hx Substance Use: No Substance Use Type: Reports: None Hx Tobacco Use: Yes Smoking Status (MU): Former Smoker Type: Cigarettes Have You Smoked in the Last Year: No Review of Systems Negative: Fever Positive: Chest Pain Positive: Shortness Of Breath All Other Systems Reviewed And Are Negative: Yes Physical Exam - Summary Physical Exam Summary: Constitutional: Well-developed, Well-nourished, Alert. (-) Distressed Skin: Warm, Dry HENT: Normocephalic; Atraumatic Eyes: Conjunctiva normal Neck: Musculoskeletal ROM normal neck. (-) JVD, (-) Stridor, (-) Tracheal deviation Cardio: Rhythm regular, rate normal, Heart sounds normal; Intact distal pulses; The pedal pulses are 2+ and symmetric. Radial pulses are 2+ and symmetric. (-) Murmur Pulmonary/Chest wall: Effort normal. (-) Respiratory distress, (-) Wheezes, (-) Rales Abd: Soft, (-) tenderness, (-) Distension, (-) Guarding, (-) Rebound Musculoskeletal: (-) Edema. Good pulses bilaterally in radius, No calf tenderness, No venous cords, No pain with dorsiflexion of foot. Lymph: (-) Cervical adenopathy Neuro: Alert, Oriented x3 Psych: Mood and affect Normal Triage Information Reviewed: Yes Vital Signs On Initial Exam: Temp Pulse Resp BP Pulse Ox 97.5 F 60 16 202/111 98 06/25/19 16:09 06/25/19 16:09 06/25/19 16:09 06/25/19 16:09 06/25/19 16:09 Vital Signs Reviewed: Yes Diagnostics - Laboratory Result Diagrams: 06/25/19 16:35 06/25/19 16:35 Lab Statement: Any lab studies that have been ordered have been reviewed, and results considered in the medical decision making process. - Radiology CXR Radiology Interpretation Completed By: Radiologist Summary of Radiographic Findings: No active cardiopulmonary disease. ED Provider has reviewed this report. - EKG 1613 Cardiac Rate: NL - 63 BPM EKG Rhythm: Sinus Rhythm Summary of EKG Findings: Q-waves in III and aVF. Flattening of the t-waves in V4 -V6. 1833 Cardiac Rate: NL - 65 BPM EKG Rhythm: Sinus Rhythm EKG Comparison: No Significant Change Summary of EKG Findings: Q-waves in III and aVF. Flattening of the t-waves in V4 -V6. Re-Evaluation - Re-Evaluation First Eval Re-Evaluation Time: 18:53 Comment: Patient's chest pain returned when trying to sleep. She has never had a NC or heart cath before. Family is in the room now. She had a stress test in January which was negative. Chest Pain Course/Dx - Course Course Of Treatment: Patient is here with chest pain that came on at rest. Patient was given nitroglycerin with resolution of her chest pain. Patient received aspirin prior to arrival here. Patient had serial EKG and troponin which were grossly unremarkable. Patient did have an episode of chest pain here which resolved with nitroglycerin. Patient saw Dr. Moctezuma in January for a stress test was performed which was negative. However, patient's had chest pain like this and given her history with presentation, patient was admitted to the hospital for further management. - Diagnoses Provider Diagnoses: Chest pain Discharge ED - Sign-Out/Discharge Documenting (check all that apply): Patient Departure - Admission Patient Received Moderate/Deep Sedation with Procedure: No - Discharge Plan Condition: Stable Disposition: ADMITTED TO [facility] Referrals: Virgilio Zuleta MD [Primary Care Provider] - - Billing Disposition and Condition Condition: STABLE Disposition: Admitted to [facility] - Attestation Statements Document Initiated by Beni: Yes Documenting Scribe: Cesario Prasad Provider For Whom Beni is Documenting (Include Credential): Manny Orozco MD Scribe Attestation: Cesario Mcmahan scribed for Manny Orozco MD on 06/25/19 at 2047. Scribe Documentation Reviewed: Yes Provider Attestation: The documentation as recorded by the Cesario vasquez accurately reflects the service I personally performed and the decisions made by me, Manny Orozco MD Status of Scribe Document: Viewed
--- OUTSIDE RECORDS SUMMARY | 2019-06-25 16:39 | XMS REPORT | Continuity of Care Document ---
:1940 External Reference #:[id number] Author Name Virgilio Zuleta M.D. Address [address] [place] [address] Care Team Providers Name Role Phone Kelsey Styles NP - Primary Care Care Team Information Administrator [phone] Eric Somers MD - Care Team Information Administrator [phone] Otolaryngology Jeremias Chavez - Allergy & Care Team Information Administrator [phone] Immunology Lg Machado - Nephrology Care Team Information Administrator [phone] Nomi Beebe - Orthopaedic Surgery Care Team Information Administrator Marianna Alexandre - Physical Medicine Care Team Information Administrator & Rehabilitation [facility] - Interventional Pain Care Team Information Administrator [phone] Medicine [facility] - Care Team Information Administrator 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 Onset: 04/29/2006 Essential hypertension Virgilio Zuleta M.D. Onset: 12/31/2007 Coronary arteriosclerosis Virgilio Zuleta M.D. Onset: 12/31/2007 Obstructive sleep apnea syndrome Virgilio Zuleta M.D. Onset: 12/31/2007 Obesity Virgilio Zuleta M.D. Onset: 08/04/2008 Hyperlipidemia Virgilio Zuleta M.D. Onset: 10/29/2012 Sjogren's syndrome Virgilio Zuleta M.D. Onset: 10/11/2014 Hypertensive renal disease Virgilio Zuleta M.D. Onset: 08/21/2015 Knee pain Virgilio Zuleta M.D. Onset: 09/07/2015 Gastroesophageal reflux disease Virgilio Zuleta M.D. Onset: 06/11/2016 Depressive disorder Virgilio Zuleta M.D. Onset: 07/03/2017 Degenerative joint disease involving Virgilio Zuleta M.D. Onset: 05/08/2018 multiple joints Glaucoma Virgilio Zuleta M.D. Onset: 12/24/2018 Low back pain Virgilio Zuleta M.D. Onset: 04/15/2019 Dementia Virgilio Zuleta M.D. Onset: 06/14/2019 Social History Type Date Description Comments Sex Unknown Tobacco Use Start: Unknown End: Unknown Former Cigarette Smoker ETOH Use Rarely consumes alcohol Tobacco Use Start: Unknown End: Unknown Patient is a former smoker Smoking Status Reviewed: 02/04/19 Patient is a former smoker Allergies, Adverse Reactions, Alerts Active Allergies Reaction Severity Comments Date Plavix 07/10/2004 Seasonal 02/08/2016 Environmental 02/08/2016 Medications Active Medications SIG Qnty Indications Ordering Date Provider Humalog inject 5 units 30ml Virgilio FSuzi 05/11/2019 100Unit/ML Solution before each Shallnadia M.DSuzi meal none if < 100 Oxycontin 1 by mouth 3 60tabs Virgilio F. 04/15/2019 10mg Tab ER 12H times daily Nadya Zuleta Abuse-Det -[place] Bupropion Hydrochloride take 2 tablet 180tabs Virgilio FSuzi 03/31/2019 ER (SR) by mouth every Nadya Zuleta 100mg Tablets ER 12HR morning Aspirin 81 1 by mouth 90tabs Virgilio FSuzi 03/31/[address] every day Nadya Zuleta Novolog 5 units before 30ml Virgilio F. 12/24/2018 100Unit/ML Solution meals , none if Shallish, M.D. < 100 Cozaar Take 1 Tablet 90tabs Virgilio FSuzi 09/28/2018 25mg Tablets By Mouth Every Shallish M.DSuzi Day Metoprolol Succinate ER Take 1 Tablet 90tabs Virgilio F. 01/14/2018 25mg By Mouth Every Nadya Zuleta Tablets ER 24HR Day Loratadine Take 1 Tablet 90tabs Virgilio F. 01/07/2018 10mg Tablets By Mouth Every Nadya Zuleta Day as needed for allergy symptoms Betaxolol HCL 1 gtt ou bid 5ml Virgilio FSuzi 02/26/2017 0.5% Solution Nadya Zuleta Ranexa take 1 tablet 180tabs Valery Marcy 04/17/2016 500mg Tablets ER 12HR by mouth 2 Wiley, [employer] times per day for chest pain Hydrocodone-Acetaminophen Take 1 Tablet 120tabs Virgilio FSuzi 11/02/2014 By Mouth Four Nadya Zuleta 10-325mg Tablets Times Daily as Needed For Pain - Maximum Daily Dose Of 4 Per Day Albuterol Sulfate use one vial 75ml R05 Virgilio F. 08/11/2014 (2.5mg/3ML) via nebulizer Nadya Zuleta 0.083% Nebulizer four times a day as needed Mometasone Furoate apply three 30gm Virgilio F. 08/11/2014 0.1% Cream times a day as Nadya Zuleta needed Gabapentin 1 by mouth 360tabs Virgilio FSuzi 07/13/2014 600mg Tablets three times a Nadya Zuleta day Advair Diskus 1 puff twice a 1units Virgilio FSuzi 09/03/2013 250-50mcg/Dose day Nadya Zuleta Aerosol Proair HFA Inhale 2 Puffs 8.5units Virgilio FSuzi 09/03/2013 108(90Base) mcg/Act By Mouth Every Nadya Zuleta Aerosol 2 To 4 Hours as Needed Atorvastatin Calcium Take 1 Tablet 90tabs Virgilio F. 10/29/2012 20mg By Mouth Every Nadya Zuleta Tablets Day Nitrostat 1 sl as needed 25tabs Virgilio F. 08/16/2012 0.4mg Tablets Sub chest pain , Nadya Zuleta may repeat q5-10 min, call 911 if no relief after 20-30 minutes Isosorbide Mononitrate ER take one tablet 90tabs Virgilio F. 04/25/2012 30mg by mouth once Nadya Zuleta Tablets ER 24HR daily Fluticasone Propionate Use Two Sprays 16gm Virgilio Steven 05/24/2011 In The Affected Nadya Zuleta 50mcg/Act Suspension Nostril Every Day as needed Trazodone HCL take one tablet 90tabs Virgilio Steven 06/20/2010 50mg Tablets by mouth at Nadya Zuleta bedtime as needed Hydroxychloroquine 1 by mouth 90tabs Virgilio FSuzi Sulfate every day Nadya Zuleta 200mg Tablets Diclofenac Sodium 15 gtt apply [facility] Solution left kneee Nadya Zuleta twice a day as needed for arthritis pain Travatan Z 1 drop into 2.500ml Unknown 0.004% Solution left eye every night at bedtime Ranitidine HCL Take 1 Tablet 90tabs Virgilio FSuzi 300mg Tablets By Mouth Every Jacob ZuletaDSuzi Day Cosopt 1 gtt left eye 10ml Unknown 22.3-6.8mg/ml Solution bid History Medications Tylenol take 2 tablets(650mg) Virgilio ModeSuzi Daronnadia, 05/11/2019 - 325mg by mouth every 4 hours M.D. 2019 Tablets as needed for pain Wheelchair dx m15.0, m54.5, Virgilio CoelloSuzi Daronnadia, 04/29/2019 - Standard m25.561, m25.562 M.D. 2019 Lidocaine Apply To Painful Area 30units Virgilio ModeSuzi Daronnaida, 04/20/2019 - 5% On Back For 12 Hours & M.D. 2019 Patches TH Remove For 12 Hours Wheelchair dx diabetes mellitus, Virgilio ModeSzui Daronnadia, 04/12/2019 - Standard e11.9 M.D. 04/15/2019 Note needs freestyle test 100units Virgilio CoelloSuzi Daronnadia, 03/31/2019 - strips dx diabetes M.D. 04/15/2019 mellitus, e11.9 Note needs freestyle 100units Virgilio ModeSuzi Daronnadia, 03/31/2019 - lancets, test bid M.D. 04/15/2019 e11.9 Rolling Walker , dx arthritis duration 1units Virgilio Zuleta, 2018 - With Wheels And lifelong M.D. 03/31/2019 Brakes Humalog inject 5 units before 30ml Virgilio Zuleta, 03/25/2019 - each meal none if < M.D. 03/31/2019 100Unit/ML 100 Solution Novolog Flexpen 5 units before meals, 45ml Virgilio Zuleta, 03/23/2019 - none if <100 M.D. 03/31/2019 100Unit/ML Solution Pen-Inject Note needs Novolog flexpen 100units Virgilio Zuleta, 03/23/2019 - needles dx diabetes M.D. 03/31/2019 mellitus e11.9 Note needs test strips test 100units Virgilio Zuleta, 03/23/2019 - 3 times daily, M.D. 03/31/2019 diabetes mellitus, e11.9 Note maximal daily dose of Virgilio Zuleta, 03/23/2019 - acetamenophen is 3000 M.D. 03/31/2019 mg/day Medications Administered in Office Medication SIG Qnty Indications Ordering Provider Date TB Intradermal Test Virgilio Zuleta M.D. 02/08/2019 Injection H1N1 MDCR vaccine any route Virgilio Zuleta M.D. 11/09/2009 Injection Immunizations CPT Code Status Date Vaccine Lot # [id number] Given 08/21/2018 High-Dose, Influenza Virus Vacccine-fluzone 65 [id number] and older 55065 Given 07/03/2017 High-Dose, Influenza Virus Vacccine-fluzone 65 [id number] and older 80417 Given 07/18/2016 High-Dose, Influenza Virus Vacccine-fluzone 65 [id number] and older 56607 Given 09/07/2015 High-Dose, Influenza Virus Vacccine-fluzone 65 and older 27421 Given 05/27/2015 Zostivax 14662 Given 05/11/2015 Pneumococcal Conjugate Vacc-13 [id number] 18901 Given 08/11/2014 High-Dose, Influenza Virus Vacccine-fluzone 65 [id number] and older 32638 Given 07/13/2013 High-Dose, Influenza Virus Vacccine-fluzone 65 [id number] and older 08663 Given 09/09/2012 Tdap Tetanus, W Pertussis [id number] 05192 Given 09/09/2012 High-Dose, Influenza Virus Vacccine-fluzone 65 [id number] and older Q2038 Given 06/25/2011 Split Influenza Medicare: Fluzone [id number] 04423 Given 07/17/2010 DO Not Use Split Influenza Virus Vaccine [id number] 16502 Given 03/15/2010 Pneumococcal Immunization [id number] 63542 Given 07/04/2009 DO Not Use Split Influenza Virus Vaccine [id number] 60753 Given 07/05/2008 DO Not Use Split Influenza Virus Vaccine [id number] 02042 Given 08/11/2007 DO Not Use Split Influenza Virus Vaccine [id number] 12746 Given 12/19/2006 Tetanus And Diptheria Adult Preservative Free [id number] >7Yrs 66436 Given 08/20/2004 DO Not Use Split Influenza Virus Vaccine 79098 Given 08/05/2003 DO Not Use Split Influenza Virus Vaccine 88202 Given 08/28/2001 Influenza Immunization 50523 Given 07/29/2000 Pneumococcal Immunization Vital Signs Date Vital Result Comment 06/14/2019 12:26pm BP Systolic 160 mmHg BP Diastolic 82 mmHg Heart Rate 66 /min Body Temperature 97.3 F Respiratory Rate 20 /min Weight 206.00 lb 04/30/2019 3:03pm BP Systolic 138 mmHg BP Diastolic 88 mmHg Heart Rate 66 /min Body Temperature 97.3 F Respiratory Rate 17 /min Weight 202.00 lb Results Test Date Facility Test Result H/L Range Note Laboratory test 06/14/2019 [facility] B12 <pending> 230-1050 finding TSH <pending> 0.5-5.0 Free T4 <pending> 0.75-1.54 Laboratory test 06/14/2019 [facility] Reactive 4.11 mg/L Normal <8.01 1, 2 finding Protein Laboratory test 06/14/2019 [facility] Hemoglobin A1c 6.6 % High 4.1- 5.7 finding (607)- - (Fma) Ua - Micro (Fma) 06/14/2019 [facility] Appearance clear (607)- - Color yellow Glucose, Urine ([facility]ma/CMC/CTX) negative Bilirubin negative Ketones negative SP Grav 1.015 Blood negative PH 7.0 Protein SSA NEG Urobil 0.2 Nitrite negative Leukocytes ([facility]ma/CMC/Centrex) trace Hyaline - /Lpf Granular - /Lpf WBC ([facility]ma,[facility]) 5-8 RBC 0-2 Mucus (Fma/CBC/Centrex) 0 /Lpf Epith rare /Lpf Bacteria trace /Hpf Amorphous (Fma/CMC/[facility]rex) 0 /Lpf Crystals, Fluid (Fma/CMC/CTX) 0 Z#Comments 0 Lipid Profile 04/15/2019 [facility]) Cholesterol 146 mg/dL 120- 200 Triglycerides 105 mg/dL 30-200 HDL Cholesterol 51 mg/dL 30-85 LDL (Calculated) 74 CALC 0-129 VLDL Cholesterol 21 mg/dL 0-50 HDL Risk Factor 2.9 CALC 0.0-4.4 Comprehensive Metabolic 04/15/2019 [facility]) Sodium 144 mEq/L 134-149 Prof Potassium 3.3 mEq/L Low 3.6-5.5 3 Chloride 104 mEq/L 94-112 Carbon Dioxide 26 mEq/L 21-32 Glucose 206 mg/dL High 70-105 4 BUN 20 mg/dL 6-26 Creatinine 1.0 mg/dL 0.6-1.4 BUN/Creat Ratio 20.0 CALC 8.0-36.0 Calcium 8.7 mg/dL 8.6-10.2 Total Protein 6.0 g/dL Low 6.4-8.3 5 Albumin 3.8 g/dL 3.8-5.5 Globulin 2.2 g/dL 2.0-4.8 A/G Ratio 1.7 CALC 0.6-2.3 Alk. Phosphatase 88 U/L 30-110 Alt (SGPT) 11 U/L 7-35 Ast (Sgot) 11 U/L 5-34 Total Bilirubin 0.2 mg/dL 0.2-1.3 GFR Non- 57 ml/min/1.73m^ Low >=60 GFR >60 ml/min/1.73m^ >=60 CBC Electronic (Fma New) 04/15/2019 [facility] WBC 9.13 4.0-10.0 (607)- - RBC 3.71 Low 3.93-6.0 Hemoglobin (Fma/CMC/CTX) 11.9 g/dL Low 12.0-17.0 Hematocrit (Fma/CMC/CTX) 36.4 % 35.0-50.0 Mean Corpuscular Vol 98.1 fL High 80-95 Mean Corpuscular Hemoglobin 32.1 pg 25.6-32.2 Mean Corpuscular Hemo Concen 32.7 g/dL 32.2-36.0 Platelets 174 10^3/ul 163-400 RDW-CV 13.7 11.6-14.4 Mean Platelet Volume 12.4 fL 8.0-12.4 Absolute Neutrophils BLD 6.10 1.56-6.13 Absolute Lymphocytes 1.68 1.18-3.74 Absolute Monocytes BLD Auto 1.00 High 0.24-0.82 Absolute Eos Blood 0.21 0.04-0.54 Absolute Basophils 0.05 0.01-0.08 Neutrophil % 66.8 % 34.0-70.0 Lymph% 18.4 % Low 20.0-52.0 Monocytes % 11.0 % 5.0-12.0 Eos % 2.3 % 0.7-7.0 Basophil% 0.5 % 0-1.2 Laboratory test 04/15/2019 [facility] Hemoglobin A1c 6.4% % High 4.1 -5.7 finding (607)- - (a) Microalb, Random (Fma/CMC/CTX) >200 mg/L High 0.5-37 Urinalysis Profile 04/14/2019 [facility] Urine Color Yellow Urine Appearance Clear Urine Specific [place] 1.026 Normal 1.010-1.030 Urine pH 5.0 Normal 5-9 Urine Urobilinogen Negative Negative Urine Ketones Negative Negative Urine Protein 2+(100 mg/dL) Abnormal Negative Urine Leukocytes Trace Abnormal Negative Urine Blood Negative Negative Urine Nitrite Negative Negative Urine Bilirubin Negative Negative Urine Glucose Negative Negative Urine White Blood Cell Trace(0-5/hpf) Absent Urine Red Blood Cell Absent Absent Urine Bacteria Absent Absent Urine Squamous Epithelial Cell Present Abnormal Absent Urine Culture And 04/14/2019 [facility] Urine Culture SEE RESULT 6 Sensitivities BELOW Laboratory test 02/02/2019 [facility] TSH 0.72 mIU/L 0.50-6. finding 00 Comprehensive 02/02/2019 [facility]) Sodium 144 mEq/L 134-149 Metabolic Prof Potassium 3.4 mEq/L Low 3.6-5.5 Chloride 102 mEq/L 94-112 Carbon Dioxide 22 mEq/L 21-32 Glucose 179 mg/dL High 70-105 BUN 20 mg/dL 6-26 Creatinine 1.1 mg/dL 0.6-1.4 BUN/Creat Ratio 18.2 CALC 8.0-36.0 Calcium 9.1 mg/dL 8.6-10.2 Total Protein 6.6 g/dL 6.4-8.3 Albumin 4.1 g/dL 3.8-5.5 Globulin 2.5 g/dL 2.0-4.8 A/G Ratio 1.6 CALC 0.6-2.3 Alk. Phosphatase 71 U/L 30-110 Alt (SGPT) 9 U/L 7-35 Ast (Sgot) 10 U/L 5-34 Total Bilirubin 0.3 mg/dL 0.2-1.3 GFR Non- 51 ml/min/1.73m^ Low >=60 GFR >60 ml/min/1.73m^ >=60 CBC Electronic (a New) 02/02/2019 [facility] WBC 8.66 4.0-10.0 (607)- - RBC 3.96 3.93-6.0 Hemoglobin (Fma/CMC/CTX) 12.3 g/dL 12.0-17.0 Hematocrit (Fma/CMC/CTX) 37.3 % 35.0-50.0 Mean Corpuscular Vol 94.2 fL 80-95 Mean Corpuscular Hemoglobin 31.1 pg 25.6-32.2 Mean Corpuscular Hemo Concen 33.0 g/dL 32.2-36.0 Platelets 175 10^3/ul 163-400 RDW-CV 13.1 11.6-14.4 Mean Platelet Volume 13.0 fL High 8.0-12.4 Absolute Neutrophils BLD 5.61 1.56-6.13 Absolute Lymphocytes 1.79 1.18-3.74 Absolute Monocytes BLD Auto 0.90 High 0.24-0.82 Absolute Eos Blood 0.21 0.04-0.54 Absolute Basophils 0.05 0.01-0.08 Neutrophil % 64.7 % 34.0-70.0 Lymph% 20.7 % 20.0-52.0 Monocytes % 10.4 % 5.0-12.0 Eos % 2.4 % 0.7-7.0 Basophil% 0.6 % 0-1.2 Laboratory test finding 01/20/2019 [facility] Point of Care Glucose 183 mg/dL High 70-100 7 Laboratory test finding 01/02/2019 [facility] Point of Care Glucose 195 mg/dL High 70-100 8 1 1 gold top sst tube sent 1 charles urine transport tube sent [id number] 1 gold top sst tube sent 1 charles urine transport tube sent [id number] consistent w/ previous results 4 NON-FASTING 5 consistent w/ previous results 6 SEE RESULT BELOW Name: SRINI JEFFRIES Jaxon : [address]: Virgilio Zuleta MD Acct: [id number] Unit: [id number] AGE: 78 Location: [facility] [employer] Re04/14/19 SEX: F Status: REG REF SPEC: [id number] MARIA M: 04/14/19-[address] [facility] [address]: Virgilio Zuleta MD REQ: [id number] RECD: 04/14/19 STATUS: COMP _ SOURCE: URINE [facility]: ORDERED: Urine Culture Urine Source: Random Procedure Result Reported Site Urine Culture Final 04/15/19- 1203 ML No Growth (<1,000 CFU/mL) * ML - Main Lab . END OF REPORT DEPARTMENT OF PATHOLOGY, [address] [place] [address] Crow Fraser M.D. Director [facility] # [id number] 7 Artist Scientific: [id number] Artist Scientific: [id number] Procedures Date Code Description Status 05/29/2018 [id number] Mammogram Completed 03/02/2018 [id number] Diabetic Retinal Eye Exam Completed 03/20/201788846843 Mammogram Completed 01/19/201664371262 Mammogram Completed 01/04/201548576590 Mammogram Completed 12/20/201388819650 Mammogram Completed 10/01/201236460908 Mammogram Completed 08/06/2011 [id number] Mammogram Completed 07/31/201039981044 Mammogram Completed 06/28/[id number] Mammogram Completed 12/28/2008 [id number] Colonoscopy Completed 01/26/2008 [id number] Mammogram Completed 01/07/200700240328 Mammogram Completed Medical Devices Description No Information Available Encounters Type Date Location Provider Dx Diagnosis Office Visit 04/30/2019 Main Office Lg T. W01.198D Fall same lev from 2:50p MD Clay slip/trip w strike agnst oth object, subs S00.03xD Contusion of scalp, subsequent encounter M54.5 Low back pain M15.0 Primary generalized (osteo)arthritis Office Visit 04/15/2019 2:40p Main Office Virgilio Harris E11.9 Type 2 diabetes Nadya Zuleta mellitus without complications M54.5 Low back pain I25.10 Athscl heart disease of [place] coronary artery w/o ang pctrs Office Visit 02/10/2019 3:30p Main Office Virgilio Harris Z11.1 Encounter for Nadya Zuleta screening for respiratory tuberculosis Office Visit 02/02/2019 4:00p Main Office Valery Vidal R53.83 Other fatigue Saurabh, IMTIAZ R68.89 Other general symptoms and signs E11.9 Type 2 diabetes mellitus without complications I25.10 Athscl heart disease of [place] coronary artery w/o ang pctrs Office Visit 12/24/2018 2:20p Main Office Virgilio Harris E11.9 Type 2 diabetes Nadya Zuleta mellitus without complications I25.10 Athscl heart disease of [place] coronary artery w/o ang pctrs H40.9 Unspecified glaucoma R41.0 Disorientation, unspecified Z01.818 Encounter for other preprocedural examination Office Visit 12/17/2018 2:00p Main Office Virgilio Harris E11.9 Type 2 diabetes Nadya Zuleta mellitus without complications I25.10 Athscl heart disease of [place] coronary artery w/o ang pctrs R41.0 Disorientation, unspecified Assessments Date Code Description Provider 06/14/2019 M54.5 Low back pain Virgilio Zuleta M.D. 06/14/2019 E11.9 Type 2 diabetes mellitus without Virgilio Zuleta M.D. complications 06/14/2019 I25.10 Atherosclerotic heart disease of [place] Virgilio Zuleta M.D. coronary artery with 06/14/2019 F03.90 Unspecified dementia without behavioral Virgilio Zuleta M.D. disturbance 04/30/2019 W01.198D Fall on same level from slipping, Lg Williamson MD tripping and stumbling wit 04/30/2019 S00.03xD Contusion of scalp, subsequent encounter Lg Williamson MD 04/30/2019 M54.5 Low back pain Lg Williamson MD 04/30/2019 M15.0 Primary generalized (osteo)arthritis Lg Williamson MD 04/15/2019 E11.9 Type 2 diabetes mellitus without iVrgilio Zuleta M.D. complications 04/15/2019 M54.5 Low back pain Virgilio Zuleta M.D. 04/15/2019 I25.10 Atherosclerotic heart disease of [place] Virgilio Zuleta M.D. coronary artery with 02/10/2019 Z11.1 Encounter for screening for respiratory Virgilio Zuleta M.D. tuberculosis 02/08/2019 Z11.1 Encounter for screening for respiratory Virgilio Zuleta M.D. tuberculosis 02/02/2019 R53.83 Other fatigue Valery Wiley, IMTIAZ 02/02/2019 R68.89 Other general symptoms and signs Valery Wiley, IMTIAZ 02/02/2019 E11.9 Type 2 diabetes mellitus without Valery Wiley NP complications 02/02/2019 I25.10 Atherosclerotic heart disease of [place] Valery Wiley NP coronary artery with 12/24/2018 E11.9 Type 2 diabetes mellitus without Virgilio Zuleta M.D. complications 12/24/2018 I25.10 Atherosclerotic heart disease of [place] Virgilio Zuleta M.D. coronary artery with 12/24/2018 H40.9 Unspecified glaucoma Virgilio Zuleta M.D. 12/24/2018 R41.0 Disorientation, tracy Zuleta M.D. 12/24/2018 Z01.818 Encounter for other preprocedural Virgilio Zuleta M.D. examination 12/17/2018 E11.9 Type 2 diabetes mellitus without Virgilio Zuleta M.D. complications 12/17/2018 I25.10 Atherosclerotic heart disease of [place] Virgilio Zuleta M.D. coronary artery with 12/17/2018 R41.0 Disorientation, unspecified Virgilio Zuleta M.D. Plan of Treatment Future Appointment(s):08/17/2019 10:40 am - Virgilio Zuleta M.D. at Main [id number]/27/2019 2:20 pm - Virgilio Zuleta M.D. at Main [id number]/14/2019 - Virgilio Zuleta M.D.M54.5 Low back painComments:she had recent visit at pain clinic, with increase in oxycontin, continue SalonpasFollow up:Followup:. ( Follow up)E11.9 Type 2 diabetes mellitus without complicationsComments:check lab work to monitor progress , continue care with Dr Banuelos, and now off Lantus , using Novolog before jdlasH73.10 Atherosclerotic heart disease of [place] coronary artery withComments:continue present medication,will call if there is any increase in the frequency or severity of angina to continue follow up with Dr MoctezumaF03.90 Unspecified dementia without behavioral disturbanceComments:her symptoms of dementia are worsening, will refer to Neurology consider Aricept, CT brain negative,await lab workAllComments: Medication Management Patient Understands medications she's taking? Yes No Are there Barriers to Adherence? Yes No Has the patient been asked about herbal supplements and therapies, and OTC meds? Yes NoFollow up: 2 months Functional Status Description No Information Available Mental Status Description No Information Available Referrals Refer to Reason for Referral Status Appt Date [facility] Dementia Hallucinations jw Created [address] [place] [address] [place] [address] [phone] [facility] Pain Clinic CONSULT Scheduled 05/26/[address] [facility] [id number] [phone] [facility] OCCUPATIONAL THERAPY Sent [address] [place] [address] [phone] Cee Saleh PA-C colonoscopy Scheduled 03/16/[address] [place] [address] [phone]
[2019-06-25 16:54] LABS: ABS Basophils 0.1 10^3/ul (0-0.2); ABS Eosinophils 0.2 10^3/ul (0-0.6); ABS Lymphocytes 1.3 10^3/ul (1.0-4.8); ABS Monocytes 1.1 10^3/ul (0-0.8); ABS Neutrophils 5.9 10^3/ul (1.5-7.7); Eosinophil % 2.6 %; Hematocrit 36 % (35-47); Hemoglobin 12.1 g/dL (12.0-16.0); Lymphocyte % 14.7 %; Mean Corpuscular HGB Conc 34 g/dL (31-36); Mean Corpuscular Hemoglobin 32 pg (27-31); Mean Corpuscular Volume 94 fL (80-97); Mean Platelet Volume 11.2 fL (7.4-10.4); Platelet Count 165 10^3/uL (150-450); Red Blood Count 3.83 10^6 /uL (3.70-4.87); Red Cell Distribution Width 14 % (10-15); White Blood Count 8.6 10^3/uL (3.5-10.8)
[2019-06-25 17:10] LABS: Albumin 3.6 g/dL (3.2-5.2); Albumin/Globulin Ratio 1.3 (1-3); BUN/Creatinine Ratio 20.9 (8-20); EGFR African American 58.1 (>60); Globulin 2.8 g/dL (2-4); Potassium 3.8 mmol/L (3.5-5.0); Total Bilirubin 0.2 mg/dL (0.2-1.0); Total Protein 6.4 g/dL (6.4-8.9)
[2019-06-25] MEDS ORDERED: Nitroglycerin TAB 0.4 MG* 0.4 MG TAB SL ONE (18:52)
[2019-06-25] MEDS ORDERED: Albuterol 2.5 MG/3 ML NEB.SOL* (0.083%) INH PRN (22:34)
[2019-06-25] MEDS ORDERED: Methocarbamol TAB* 500 MG PO PRN (22:34)
[2019-06-25] MEDS ORDERED: DEXTROSE 4 GM PO PRN (22:34)
[2019-06-25] MEDS ORDERED: Acetaminophen TAB* 325 MG PO PRN (22:34)
[2019-06-25] MEDS ORDERED: [UNRECOGNIZED DRUG - OTHER] PO PRN (22:34)
[2019-06-25] MEDS ORDERED: Albuterol HFA INHALER* 8 gm MDI INH PRN (22:34)
[2019-06-25] MEDS ORDERED: Nitroglycerin TAB 0.4 MG* 0.4 MG TAB SL PRN (22:34)
--- NOTE | 2019-06-26 00:21 | HP ---
CC: Dr. Zuleta; Dr. Moctezuma ADMISSION HISTORY AND PHYSICAL: DATE OF ADMISSION: 06/25/19 CHIEF COMPLAINT: Chest pain. HISTORY OF PRESENT ILLNESS: This is a 79-year-old female with past medical history of hemoperitoneum , status post 2 surgeries to treat that; history of Sjogren syndrome; type 2 diabetes; obstructive sl eep apnea, on CPAP; hypertension; dyslipidemia; was sent from [place] for chest pain. The patient w as in her usual state of health until noon time around lunch. She noticed having substernal chest pa in, which was radiating minimally to the right anterior chest but mostly stayed in the substernal are a and it improved significantly with 2 sublingual nitros. She does have some mild dementia and is no t able to recall all her medical problems, so past medical history was obtained by reviewing the adonis rds. The patient is otherwise oriented to place and person, although she does take a long time to th ink about where she is and which month it is. She otherwise denies any other accompanying shortness of breath. She states that she does have some chronic shortness of breath and today she did not feel more short of breath than her usual. She otherwise denies any palpitations. She denies any abdomina l pain, nausea, or vomiting and she states that she has had a stress test done recently in January at Tru Moctezuma's office, which was negative. PAST MEDICAL HISTORY: As mentioned, Sjogren syndrome; type 2 diabetes; obstructive sleep apnea, on C PAP; chronic kidney disease, stage 3; anemia secondary to renal disease; seasonal allergies and asthm a; gastritis with gastroesophageal reflux disease; dementia with mild memory impairment but still gillian ented; questionable history of stroke per previous charts. 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 HOME MEDICATIONS: Include: 1. Dextrose 4 mg p.o. daily p.r.n. for hypoglycemia. 2. [place] 10/325 mg 1 tablet q.6 hours p.r.n. pain. 3. Trazodone 50 mg daily at bedtime. 4. Nitroglycerin 0.4 mg q.5 minutes sublingual p.r.n. for chest pain. 5. Robaxin 500 mg q.6 hours p.r.n. for muscle spasm. 6. Fluticasone nasal spray, 2 sprays nasal daily p.r.n. for nasal congestion. 7. ProAir RespiClick 2 puffs by inhalation q.4 hours p.r.n. 8. DuoNebs four times a day p.r.n. 9. Tylenol 650 mg q.4 hours p.r.n. 10. Bupropion 200 mg every morning. 11. Refresh tears 1 drop both eyes t.i.d. 12. Ranexa 500 mg p.o. b.i.d. 13. OxyContin 10 mg q.8 hours. 14. Ranitidine 300 mg p.o. every morning. 15. Metoprolol 25 mg oral daily. 16. Beclomethasone 2 sprays both nares every morning. 17. Losartan 25 mg oral daily. 18. Lidocaine patch transdermally daily. 19. Isosorbide mononitrate 30 mg oral daily. 20. Gabapentin 600 mg p.o. t.i.d. 21. Hydroxychloroquine 200 mg oral daily. 22. Cosopt eye drops on left eye b.i.d. 23. Betoptic 0.05% drop on left eye daily. 24. Atorvastatin 20 mg every evening. 25. Advair HFA 2 puffs by inhalation b.i.d. 26. Aspirin 81 mg daily every morning. 27. NovoLog 5 units subcutaneous a.c. ALLERGIES: The patient is documented to have allergies to PLAVIX. FAMILY HISTORY: Father of complications of diabetes with peripheral vascular disease, cancer in one of her siblings, and her sister had lung cancer, mother had heart failure. 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 She is . She has 3 children. She is a former smoker. Currently resides in [facility]. Uses alcohol rare ly. Denies any recreational drug use. She states she wants to be DNR but her kids will not be happy, so she would prefer to stay as a full code to honor her kids' wishes and her son and daughter are her healthcare proxies. REVIEW OF SYSTEMS: A 14-point review of systems did not reveal any new information, other than what is stated in the HPI. PHYSICAL EXAMINATION GENERAL: The patient is awake, alert, oriented x3, did not appear to be in any acute respiratory dis tress. VITAL SIGNS: BP was noted to be 159/72, heart rate 63, respiration rate 14, saturating 98% on room a ir, temperature is documented at 97.5. HEAD AND NECK: Atraumatic, normocephalic. Bilateral pupils were reactive. Oral mucosa was moist. Neck is supple. No jugular venous distention. LUNGS: Clear to auscultation bilaterally. No wheezing, rhonchi, or rales. Chest examination: The patient did have some point tenderness around the right anterior second and third rib area. HEART: S1, S2. Regular rate and rhythm. ABDOMEN: Soft, nontender, nondistended. EXTREMITIES: No cyanosis, clubbing, or edema. DIAGNOSTIC STUDIES/LAB DATA: Labs: CBC was unremarkable. Comprehensive metabolic panel was unrema rkable except for a minimally elevated creatinine but when compared to her old creatinine, this is a significant improvement. Random glucose was noted to be 128. Two sets of troponins were noted to be negative. Chest x-ray was read as no active cardiopulmonary disease. EKG showed sinus rhythm at 65 beats per minute without any ST elevation noted. There is some T-wave flattening in the lead 3. When compared to her older EKG from 2017, this T-wave inversion and flattening was still present at that time as well and overall the rhythm did not appear to be any different compared to her older EKG. IMPRESSION: This is a 79-year-old female with significant history of hypertension, dyslipidemia, and type 2 diabetes, came in with chest pain with some reproducible tenderness on the right anterior skyl[address] st, could be costochondritis but given her age and risk factors and the fact that it improved with tse blingual nitro, we will consider ruling out any coronary event. ASSESSMENT AND PLAN: 1. Chest pain, rule out acute coronary syndrome. We will get serial troponins. We will get an echoc ardiogram. We will try to obtain records regarding her old stress test, which was negative in January and we will also try to obtain full records from her primary care physician as she is having some mem ory difficulty and is unable to recollect all her events. 2. History of Sjogren syndrome, on Plaquenil. We will continue the same dosage. 3. History of type 2 diabetes. We will get fingerstick sliding scale. We will check an A1c level. 4. History of dyslipidemia. We will check a fasting lipid profile and continue her statin. 5. History of chronic kidney disease stage 3, stable creatinine and we will monitor for now. 6. History of gastritis. Restart home medications. 7. History of hypertension. Restart home medications. 8. Questionable history of deep venous thrombosis. We will start the patient on Lovenox renally dos ed and monitor for now and again confirmed this history by reviewing record from PCP. 9. Code status. The patient wishes to be full code for now. [id number]/[facility] #: [id number]
[2019-06-26] MEDS: Hydrocodone/Acetamin 10/325 1 TAB PO PRN ×2 (01:17→11:09)
[2019-06-26] MEDS: Enoxaparin(*) 30 MG/0.3 ML SYR SUBCUT SCH ×2 (01:18→22:34)
[2019-06-26 06:14] LABS: BUN/Creatinine Ratio 18.6 (8-20); Calcium 8.8 mg/dL (8.6-10.3); EGFR African American 67.2 (>60); EGFR Non-African American 55.5 (>60); HDL Cholesterol 45.2 mg/dL; Potassium 3.6 mmol/L (3.5-5.0)
[2019-06-26] MEDS: oxyCODONE SR TAB(*) 10 MG TAB.SR PO SCH ×3 (06:20→22:34)
[2019-06-26 06:39] LABS: ABS Basophils 0.1 10^3/ul (0-0.2); ABS Eosinophils 0.2 10^3/ul (0-0.6); ABS Lymphocytes 1.2 10^3/ul (1.0-4.8); ABS Monocytes 0.9 10^3/ul (0-0.8); ABS Neutrophils 4.8 10^3/ul (1.5-7.7); Eosinophil % 2.9 %; Hematocrit 36 % (35-47); Hemoglobin 12.3 g/dL (12.0-16.0); Mean Corpuscular HGB Conc 34 g/dL (31-36); Mean Corpuscular Hemoglobin 32 pg (27-31); Mean Corpuscular Volume 94 fL (80-97); Mean Platelet Volume 11.3 fL (7.4-10.4); Platelet Count 151 10^3/uL (150-450); Red Blood Count 3.81 10^6 /uL (3.70-4.87); Red Cell Distribution Width 14 % (10-15); White Blood Count 7.1 10^3/uL (3.5-10.8)
[2019-06-26] MEDS: Mometasone/Formoter 200/5 MDI INH SCH ×2 (07:58→20:10)
--- NOTE | 2019-06-26 09:51 | PN ---
Subjective Date of Service: 06/26/19 Interval History: Ms. Leiva denies any complaint today other than that she feels very distressed that "her girl" is not coming in to see her today. She denies chest pain, SOB, nausea, or abdominal pain. Objective Active Medications: Acetaminophen (Tylenol Tab*) 650 mg PO Q4H PRN Hydrocodone Bitart/Acetaminophen ([place] 10/325 (Nf)) 1 tab PO Q6H PRN Albuterol (Ventolin 2.5 Mg/3 Ml Neb.Jojo*) 2.5 mg INH QID PRN Albuterol (Ventolin Hfa Inhaler*) 2 puff INH Q4HR PRN Artificial Tears (Natural Balance Tears Eye Drop) 1 drop BOTH EYES TID YOSELIN Aspirin (Aspirin 81 Mg Chew Tab*) 81 mg PO QAM YOSELIN Atorvastatin Calcium (Lipitor*) 20 mg PO QPM YOSELIN Betaxolol HCl (Betoptic 0.05%*) 1 drop LEFT EYE DAILY YOSELIN Bupropion HCl (Wellbutrin Sr Tab*) 200 mg PO QAM YOSELIN Dorzolamide/Timolol (Cosopt (Nf)) 1 drop LEFT EYE BID YOSELIN; Protocol Enoxaparin Sodium (Lovenox(*)) 30 mg SUBCUT Q24H YOSELIN Famotidine (Pepcid Tab*) 40 mg PO QAM YOSELIN; Protocol Fluticasone Propionate (Flonase Nasal Malo 50mcg*) 2 spray BOTH NARES DAILY PRN Gabapentin (Neurontin Cap(*)) 600 mg PO TID [facility] Hydroxychloroquine Sulfate (Plaquenil Tab*) 200 mg PO DAILY [facility] Insulin Human Lispro (Humalog*) 5 units SUBCUT AC YOSELIN Isosorbide Mononitrate (Imdur Er Tab*) 30 mg PO DAILY [facility] Lidocaine (Lidoderm 5% Patch*) 1 patch TRANSDERM DAILY [facility] Losartan Potassium (Cozaar Tab*) 25 mg PO DAILY YOSELIN Methocarbamol (Robaxin Tab*) 500 mg PO Q6HR PRN Metoprolol Succinate (Toprol Xl Tab*) 25 mg PO DAILY YOSELIN Mometasone Furoate/Formoterol Fumar (Dulera 200/5 Mdi*) 2 puff INH BID YOSELIN; Protocol Nitroglycerin (Nitroglycerin Tab 0.4 Mg*) 0.4 mg SL Q5M PRN (Beclomethasone Dipropionate [Qnasl] 2 Malo) 2 spray BOTH NARES QAM YOSELIN (Dextrose [Glucose] (4 Gm)) 4 gm PO DAILY PRN Oxycodone HCl (Oxycontin(*)) 10 mg PO Q8HR [facility] Pharmacy Profile Note (Lidocaine Patch Remove*) 1 note PATCH OFF 2100 YOSELIN Ranolazine (Ranexa (Nf)) 500 mg PO BID [facility]; Protocol Trazodone HCl (Desyrel Tab*) 50 mg PO BEDTIME [facility] Vital Signs: Temp Pulse Resp BP Pulse Ox 97.3 F 66 16 155/64 99 06/26/19 03:57 06/26/19 08:01 06/26/19 08:01 06/26/19 03:57 06/26/19 08:01 Oxygen Devices in Use Now: None Appearance: Female lying in bed in NAD Eyes: No Scleral Icterus Ears/Nose/Mouth/Throat: Mucous Membranes Moist Neck: Trachea Midline Respiratory: Symmetrical Chest Expansion and Respiratory Effort, Clear to Auscultation Cardiovascular: NL Sounds; No Murmurs; No JVD, No Edema Abdominal: NL Sounds; No Tenderness; No Distention Extremities: No Edema Skin: No Rash or Ulcers Neurological: Alert and Oriented x 3, NL Muscle Strength and Tone Nutrition: Taking PO's Result Diagrams: 06/26/19 05:57 06/26/19 05:31 Assess/Plan/Problems-Billing Assessment: Ms. Leiva is a 79 yo F with a PMH of Sjogren's syndrome, hemopericardium x 2, Type 2 DM, CKD Stage 3, ADAMA with CPAP use who was admitted on 06/25/19 with chest pain - Patient Problems (1) Chest pain Comment: - Trops negative, no evidence of ischemia on EKG - Negative stress test in January, followed closely by Dr. Moctezuma. - Continue medical management with ASA, NTG, metoprolol, losartan, atorvastatin and imdur. - Echocardiogram pending for tomorrow (2) Anemia Comment: - Not currently anemic (3) Diabetes mellitus Comment: - BG 120-200 - Continue Lispro SS. (4) Kidney disease Comment: - At baseline (5) Depression Comment: - Continue buproprion (6) Sjogrens syndrome Comment: - Continue plaquenil (7) DVT prophylaxis Comment: - Continue lovenox (8) Full code status Comment: Status and Disposition: OBV. Anticipate discharge back to [facility] when medically stable.
[2019-06-26] MEDS: Insulin LISPRO* 1 UNITS UNIT SUBCUT SCH ×3 (10:19→17:38)
[2019-06-26] MEDS: Losartan TAB* 25 MG PO SCH (10:22)
[2019-06-26] MEDS: Isosorbide Mononitrate ER TAB* 30 MG PO SCH (10:22)
[2019-06-26] MEDS: Gabapentin CAP(*) 300 MG PO SCH ×3 (10:23→22:34)
[2019-06-26] MEDS: Metoprolol Succinate XL TAB* 25 MG PO SCH (10:23)
[2019-06-26] MEDS: BECLOMETHASONE DIPROPIONATE BOTH NARES SCH (10:24)
[2019-06-26] MEDS: Famotidine TAB* 20 MG PO SCH (10:24)
[2019-06-26] MEDS: Aspirin 81 mg CHEW TAB* 81 MG TAB.CHEW PO SCH (10:24)
[2019-06-26] MEDS: buPROPion SR TAB.SR* 200 MG PO SCH (10:24)
[2019-06-26] MEDS: Hydroxychloroquine TAB* 200 MG PO SCH (10:25)
[2019-06-26] MEDS: Dextran 70/Hypromellose Tears Eye Drops 15 ml BTL (for Artificials Tears) BOTH EYES SCH ×3 (10:29→22:35)
[2019-06-26] MEDS: Fluticasone NASAL SPRAY 50MCG* 16 gm SPRAY BTL BOTH NARES PRN (10:29)
[2019-06-26] MEDS: Betaxolol 0.5 %* OPHTH.SOLN 5 ML LEFT EYE SCH (10:30)
[2019-06-26] MEDS: Ranolazine (NF) 500 MG TAB PO SCH ×2 (10:32→22:30)
[2019-06-26] MEDS: Dorzolamide/Timolol OPTH (NF) 10 ML BOT LEFT EYE SCH ×2 (10:33→22:30)
[2019-06-26] MEDS: Lidocaine PATCH 5%* 1 PATCH TRANSDERM SCH (11:08)
[2019-06-26] MEDS ORDERED: Atorvastatin* 20 MG TAB PO SCH (18:00)
[2019-06-26] MEDS ORDERED: traZODone TAB* 50 MG TAB PO SCH (21:00)
[2019-06-26] MEDS ORDERED: Lidocaine Patch REMOVE* 1 NOTE MISC PATCH OFF SCH (21:00)
[2019-06-27] MEDS: oxyCODONE SR TAB(*) 10 MG TAB.SR PO SCH (05:50)
[2019-06-27] MEDS: Mometasone/Formoter 200/5 MDI INH SCH (07:57)
[2019-06-27] MEDS: Insulin LISPRO* 1 UNITS UNIT SUBCUT SCH ×2 (08:26→12:33)
[2019-06-27] MEDS: Metoprolol Succinate XL TAB* 25 MG PO SCH (08:27)
[2019-06-27] MEDS: Losartan TAB* 25 MG PO SCH (08:27)
[2019-06-27] MEDS: Isosorbide Mononitrate ER TAB* 30 MG PO SCH (08:27)
[2019-06-27] MEDS: Gabapentin CAP(*) 300 MG PO SCH (08:27)
[2019-06-27] MEDS: Aspirin 81 mg CHEW TAB* 81 MG TAB.CHEW PO SCH (08:28)
[2019-06-27] MEDS: Famotidine TAB* 20 MG PO SCH (08:28)
[2019-06-27] MEDS: buPROPion SR TAB.SR* 200 MG PO SCH (08:28)
[2019-06-27] MEDS: Hydroxychloroquine TAB* 200 MG PO SCH (08:29)
[2019-06-27] MEDS: Hydrocodone/Acetamin 10/325 1 TAB PO PRN (08:41)
[2019-06-27] MEDS: Ranolazine (NF) 500 MG TAB PO SCH (08:44)
[2019-06-27] MEDS: Dorzolamide/Timolol OPTH (NF) 10 ML BOT LEFT EYE SCH (08:45)
[2019-06-27] MEDS: Dextran 70/Hypromellose Tears Eye Drops 15 ml BTL (for Artificials Tears) BOTH EYES SCH (08:46)
[2019-06-27] MEDS: Lidocaine PATCH 5%* 1 PATCH TRANSDERM SCH (08:46)
[2019-06-27] MEDS: Fluticasone NASAL SPRAY 50MCG* 16 gm SPRAY BTL BOTH NARES PRN (08:46)
[2019-06-27] MEDS: Betaxolol 0.5 %* OPHTH.SOLN 5 ML LEFT EYE SCH (08:46)
[2019-06-27] MEDS: BECLOMETHASONE DIPROPIONATE BOTH NARES SCH (09:51)
--- NOTE | 2019-06-27 10:28 | ECHO ---
*[facility]* [place] [address] Fax #: [phone] Transthoracic Echocardiogram Patient: Lupe Leiva : 1940 Study Date: 06/27/2019 Age: 79 Gender: F HR: 66 bpm Height: 61 in /154.9 cm BSA: 1.91 m^2 Weight: 203.6 lb /92.5 kg BMI: 38.5 kg/m^2 *Clinic Business Manager: * Keely Carbajal [facility] *Referring Physician: * Shiva Bee *Reading Physician: * Ad Alberts MD Indications: Chest Pain, unspecified. History: Pericardial disease. Pulmonary Embolism. Functional status: Following treatment plan for sleep apnea. Risk factors: Current tobacco use. Hypertension. Diabetes mellitus. Obese. PVD. Conclusions Summary: - Left ventricle: The cavity size is normal. There is mild concentric hypertrophy. Systolic function is normal. The estimated ejection fraction is 60-65%. Wall motion is normal; there are no regional wall motion abnormalities. Doppler parameters are consistent with abnormal left ventricular relaxation (grade 1 diastolic dysfunction). - Left atrium: The atrium is mildly dilated. - Tricuspid valve: There is mild-moderate regurgitation. - Pulmonic valve: There is mild regurgitation. - Ascending aorta: The ascending aorta is mildly dilated. - Since the prior echocardiogram completed 01/12/19, there appears to be little change. Study data: Transthoracic echocardiogram. Procedure: Transthoracic echocardiography was performed. Image quality was fair. Complete 2D, spectral Doppler, and color flow Doppler. Location: Bedside. Patient status: Inpatient. Patient room number: 449-1. Rhythm: Normal sinus rhythm with PAC's. Findings Left ventricle: The cavity size is normal. There is mild concentric hypertrophy. Systolic function is normal. The estimated ejection fraction is 60-65%. Wall motion is normal; there are no regional wall motion abnormalities. Doppler parameters are consistent with abnormal left ventricular relaxation (grade 1 diastolic dysfunction). Right ventricle: The cavity size is normal. Systolic function is normal. Systolic pressure is at the upper limits of normal. Left atrium: The atrium is mildly dilated. Right atrium: The atrium is normal in size. Mitral valve: The Mitral valve annulus appears mildly calcified. The leaflets are mildly thickened. There is trace regurgitation. Aortic valve: The valve is trileaflet. The leaflets are mildly thickened. There is no evidence of stenosis. There is no significant regurgitation. Tricuspid valve: The leaflets are normal thickness. There is mild-moderate regurgitation. Pulmonic valve: The leaflets are normal thickness. There is no evidence of stenosis. There is mild regurgitation. Aorta: Ascending aorta: The ascending aorta is mildly dilated. The aortic root appears normal. The aortic arch appears normal. Pericardium: A prominent pericardial fat pad is present. There is no significant pericardial effusion. Pulmonary arteries: The main pulmonary artery is normal-sized. Systolic pressure is at the upper limits of normal. Systemic veins: Inferior vena cava: The vessel is normal in size. There is (>= 50%) respiratory change in the IVC dimension. Measurements Left ventricle Value Ref Aortic valve Value Ref ROSALIE, LAX 4.5 cm 3.8 - 5.2 Robert diam, ED 1.5 cm ----- ESD, LAX 2.9 cm 2.2 - 3.5 Peak v, S 1.68 m/sec ----- FS, LAX 36 % 27 - 45 VTI, S 38.7 cm ----- PW, ED, LAX (H) 1.2 cm 0.6 - 0.9 Mean grad, S 6.0 mm Hg ----- FS 36 % 27 - 45 Peak grad, S 11.0 mm Hg ----- PW, ED (H) 1.2 cm 0.6 - 0.9 LVOT/AV, VTI ratio 0.57 ----- PW/ID, ED 0.26 E', lat robert, TDI (L) 5.9 cm/sec >=10.0 Mitral valve Value Ref E/e', lat robert, 12 Peak E 0.69 m/sec ----- TDI Peak A 1.22 m/sec ----- E', med robret, TDI (L) 5.0 cm/sec >=7.0 Decel time 197 ms --- -- E/e', med robert, 14 Peak E/A ratio 0.6 ----- TDI E', avg, TDI 5.5 cm/sec Pulmonic valve Value Ref E/e', avg, TDI 13 <=14 Peak v, S 1.1 m/sec --- -- Peak grad, S 5.0 mm Hg ----- LVOT Value Ref WI v, ED 1.13 m/sec ----- Peak kandice, S 1.1 m/sec WI grad, ED 5 mm Hg ----- VTI, S 22.0 cm Mean grad, S 2 mm Hg Tricuspid valve Value Ref TR peak v (H) 2.82 m/sec <=2.8 Ventricular septum Value Ref Peak RV-RA grad, S 32 mm Hg ----- IVS, ED (H) 1.2 cm 0.6 - 0.9 Aortic root Value Ref Right ventricle Value Ref Root diam 2.7 cm <4.1 ROSALIE, LAX 3.6 cm Pressure, S 35 mm Hg Ascending aorta Value Ref AAo AP diam, S 3.5 cm ----- Left atrium Value Ref AP dim, ES (H) 4.10 cm 2.70 - Aortic arch Value Ref 3.80 Arch diam 2.5 cm ----- ML dim, A4C 4.1 cm SI dim, A4C 6.1 cm Decending aorta Value Ref Vol/bsa, ES, 1-p 38 ml/m^2 11 - 40 Joy peak kandice 0.72 m/sec ----- A4C Vol/bsa, ES, A/L (H) 38 ml/m^2 16 - 34 Pulmonary artery Value Ref Pressure, S 30.0 mm Hg ----- Right atrium Value Ref SI dim, ES 5.2 cm 3.4 - 5.3 Inferior vena cava Value Ref ML dim, ES, A4C 4.0 cm 2.6 - 4.4 Diam 1.4 cm ----- SI dim, ES, A4C 5.2 cm 3.4 - 5.3 SI dim/bsa, ES, 2.7 cm/m^2 1.9 - 3.1 A4C Estimated RAP 3 mm Hg Legend: (L) and (H) james values outside specified reference range. Prepared and electronically signed by Ad Alberts MD 06/27/2019 10:27
[2019-06-27 20:09] VITALS: BP 145/64
[2019-06-27] MEDS ORDERED: Enoxaparin(*) 40 MG/0.4 ML SYR SUBCUT SCH (21:00)
--- NOTE | 2019-06-28 00:32 | DS ---
CC: Dr. Zuleta * DISCHARGE SUMMARY: DATE OF ADMISSION: 06/25/19 DATE OF DISCHARGE: 06/27/19 PROVIDER: LUCIEN Estrella. PRIMARY CARE PROVIDER: Dr. Zuleta. ATTENDING PROVIDER: Cesario Booker MD * (DICTATED BY LUCIEN ESTRELLA) PRIMARY DIAGNOSES: 1. Chest pain, acute coronary syndrome ruled out. 2. Hypertensive urgency. 3. Diastolic dysfunction. SECONDARY DIAGNOSES: 1. Sjogren syndrome. 2. Type 2 diabetes. 3. Obstructive sleep apnea, on CPAP. 4. Chronic kidney disease, stage 3. 5. Anemia secondary to renal disease. 6. Seasonal allergies. 7. Asthma. 8. Gastroesophageal reflux disease. 9. Dementia. 10. Questionable history of stroke. HISTORY OF PRESENT ILLNESS/HOSPITAL COURSE: Lupe Leiva is a 79-year-old black female with past medical history significant for diabetes, CKD, and ADAMA, who presented to the emergency department on 06/25/19 due to chest pain. The patient was having substernal chest pain with radiation to the right anterior chest. For additional details, please see the admission history and physical dictated by Dr. Shiva Bee on 06/25/19. The patient had a recent stress test which was negative in January 2019 and during her hospital stay, her troponins were negative x4 readings. On admission, her EKG with T-wave flattening in multiple leads, which are consistent with previous EKG as well as T-wave inversion isolated to lead 3, which again is consistent with previous EKGs. The patient was admitted to the hospital and echocardiogram was not performed until the day of discharge. Echocardiogram was negative for any hypokinesis or other wall motion abnormalities. The ejection fraction was 60% to 65% and she did have grade 1 diastolic dysfunction. On day of discharge, the patient is asymptomatic. She denies chest pain, difficulty breathing, fever, chills, abdominal pain. Initially, when the patient arrived to the hospital, her blood pressure was 202/111, which is consistent on second manual reading. She did continue to have frequently hypertensive blood pressures in the 190s/low 100s and systolic 180s. I do believe that her chest pain is related to hypertensive urgency. PHYSICAL EXAMINATION: General: Elderly black female, lying upright in hospital bed, appearing comfortable, in no acute distress. Head: Normocephalic , atraumatic. Eyes: PERRL. Sclerae anicteric. ENT: Mucous membranes moist. Lungs: Clear to auscultation throughout. Cardio: Regular rate and rhythm without murmurs, rubs, or gallops. Abdomen: Soft, nontender, nondistended. Extremities: No clubbing, cyanosis, or edema. Neuro: The patient is alert and oriented to self, but not location or time. She answers questions appropriately and follows commands appropriately. She has no focal deficits or tremors. DISCHARGE PLAN: Diet: Carbohydrate consistent diet. Activity: The patient may return to her normal activity as tolerated. The patient should return to the emergency department if she is experiencing chest pain, difficulty breathing, severe headaches or some visual changes. It is recommended that her blood pressure be checked daily and recorded in the coming days leading up to follow up with her primary care provider so that her blood pressure medication can be further titrated if needed. DISCHARGE MEDICATIONS: New medications: 1. Losartan 50 mg p.o. daily. Continued home medications: 1. Insulin aspart 5 units subcu a.c. 2. Aspirin 81 mg p.o. daily. 3. Advair 2 puffs inhaled b.i.d. 4. Lipitor 10 mg p.o. daily. 5. Betoptic 1 drop left eye daily. 6. Cosopt 1 drop left eye b.i.d. 7. Plaquenil 200 mg p.o. daily. 8. Gabapentin 600 mg p.o. t.i.d. 9. Imdur 30 mg p.o. daily. 10. Lidocaine patch 1 patch transdermally daily. 11. Beclomethasone 2 sprays both nares q.a.m. 12. Metoprolol succinate 25 mg p.o. daily. 13. Ranitidine 300 mg p.o. q.a.m. 14. Oxycodone 10 mg p.o. q. 8 hours. 15. Ranexa 500 mg p.o. b.i.d. 16. Refresh Classic eye drops 1 drop both eyes t.i.d. 17. Wellbutrin 300 mg p.o. daily. 18. Tylenol 650 p.o. q.4 hours p.r.n. pain. 19. Albuterol nebulized solution 2.5 inhaled 4 times a day p.r.n. shortness of breath or sneezing. 20. Albuterol 2 puffs inhaled q.4 hours p.r.n. shortness of breath/sneezing. 21. Flonase 2 spray inhaled daily p.r.n. congestion. 22. Robaxin 500 mg p.o. q.6 hours p.r.n. spasms. 23. Nitroglycerin 0.4 mg sublingual q.5 minutes p.r.n. angina. 24. Trazodone 50 mg p.o. at bedtime. 25. Hydrocodone/acetaminophen 1 tab p.o. q.6 hours p.r.n. pain. 26. Dextrose 4 g p.o. daily p.r.n. glucose less than 60. Discontinued medications: Losartan 25 mg p.o. daily. CONDITION ON DISCHARGE: Stable. DISPOSITION: Home at [facility]. TIME SPENT: Approximately 40 minutes was spent on this discharge, approximately half of this time was spent at bedside evaluating the patient and discussing the discharge plan. LUCIEN ESTRELLA [id number]/[facility] #: [id number]
[2019-06-28] MEDS ORDERED: Losartan TAB* 25 MG PO SCH (09:00)
== END 2019-06-27 14:30 ==
LOC: ED 16:06 → MEDTELE 22:19
PROVIDERS: ADMIT Internal Medicine; ATTEND Internal Medicine
DX: I16.0 Hypertensive urgency (principal); I13.0 Hypertensive heart and chronic kidney disease with heart failure and stage 1 through stage 4 chronic kidney disease, or unspecified chronic kidney disease; I11.0 Hypertensive heart disease with heart failure; I50.30 Unspecified diastolic (congestive) heart failure; R07.9 Chest pain, unspecified; N18.3 Chronic kidney disease, stage 3 (moderate); M35.00 Sjogren syndrome, unspecified; G47.33 Obstructive sleep apnea (adult) (pediatric); E11.22 Type 2 diabetes mellitus with diabetic chronic kidney disease; D64.9 Anemia, unspecified; J45.909 Unspecified asthma, uncomplicated; K21.9 Gastro-esophageal reflux disease without esophagitis; I73.9 Peripheral vascular disease, unspecified; F03.90 Unspecified dementia, unspecified severity, without behavioral disturbance, psychotic disturbance, mood disturbance, and anxiety; R51 Headache; Z79.82 Long term (current) use of aspirin; Z79.899 Other long term (current) drug therapy; Z87.891 Personal history of nicotine dependence; Z87.19 Personal history of other diseases of the digestive system; Z79.01 Long term (current) use of anticoagulants; Z86.711 Personal history of pulmonary embolism
CPT/HCPCS: 36415; 71045; 80048; 80053; 80061; 83036; 84484; 85025; 93005; 93306; 94640; 94660; 96372; 99285; A9270-GY; G0378; J1650

== ENCOUNTER 2019-09-22 18:23 | Emergency (ER) | payer MEDICARE ==
--- NOTE | 2019-09-22 19:05 | ED ---
HPI Chest Pain - HPI Summary HPI Summary: Complains of chest pain after bending over to pick something up today at 2 PM. Patient from [place]. States chest pain is intermittent, sternal, with radiation to back. Pain is worse with movement. 2 doses of NTG with no relief. Denies fever, cough, sore throat, SOB, N/3/D, abdominal pain, change in urine, change in BM, dizziness. Medical history is DM, CK D, Sjogren's, HTN , anemia. - History of Current Complaint Chief Complaint: EDChestWallPain Hx Obtained From: Patient Onset/Duration: Started Hours Ago Timing: Intermittent Initial Severity: Mild Current Severity: Mild Pain Intensity: 2 Pain Scale Used: 0-10 Numeric Chest Pain Location: Mid Sternal Chest Pain Radiates: Yes Chest Pain Radiates To:: Back Character: Tightness Aggravating Factor(s): Movement Alleviating Factor(s): Spontaneous Resolution Associated Signs and Symptoms: Positive: Chest Pain - Additional Pertinent History Primary Care Physician: CLARICE - Allergy/Home Medications Allergies/Adverse Reactions: Allergies Allergy/AdvReac Type Severity Reaction Status Date / Time clopidogrel [From Plavix] Allergy Intermediate Unknown Verified 09/13/19 09:53 Reaction Details Home Medications: Home Medications Insulin Glargine,Hum.rec.anlog [Lantus Solostar 5x3 ML PENS] 100 unit SUBCUT BEDTIME 09/22/19 [History Confirmed 09/22/19] PMH/Surg Hx/FS Hx/Imm Hx Endocrine/Hematology History: Reports: Hx Anticoagulant Therapy - aggrenox, Hx Diabetes, Hx Anemia Denies: Hx Thyroid Disease Cardiovascular History: Reports: Hx Angina, Hx Hypertension, Hx Peripheral Vascular Disease, Other Cardiovascular Problems/Disorders - "bleeding around my heart" Denies: Hx Coronary Artery Disease, Hx Hypercholesterolemia, Hx Myocardial Infarction, Hx Pacemaker/ICD, Hx Valvular Heart Disease Respiratory History: Reports: Hx Asthma, Hx Pulmonary Embolism, Hx Sleep Apnea, Other Respiratory Problems/Disorders Denies: Hx Chronic Obstructive Pulmonary Disease (COPD) GI History: Reports: Hx Gastroesophageal Reflux Disease, Hx Irritable Bowel Denies: Hx Ulcer History: Reports: Hx Renal Disease, Other Problems/Disorders - KIDNEY DISEASE Musculoskeletal History: Reports: Hx Arthritis - OSTEOARTHRITIS, Hx Rheumatoid Arthritis, Hx Back Problems - low back pain Sensory History: Reports: Hx Cataracts, Hx Contacts or Glasses, Hx Glaucoma, Hx Deafness - Left Ear, No Hearing aides Denies: Hx Hearing Aid Opthamlomology History: Reports: Hx Cataracts, Hx Contacts or Glasses, Hx Glaucoma Neurological History: Reports: Hx Headaches, Other Neuro Impairments/Disorders - EARLY DEMENTIA Psychiatric History: Reports: Hx Depression Denies: Hx Panic Disorder - Cancer History Hx Chemotherapy: No Hx Radiation Therapy: No - Surgical History Surgery Procedure, Year, and Place: 02/05 EYE SURGERY STENT - GLAUCOMA - ARELO STENT XEN GEL - MR SAFE MADE OF PORCINE GELATINE 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 R TKR, LOWER BACK SURGERY-NOT METAL, UPPER BACK SURGERY-NO METAL, HYSTERECTOMY, BILAT CATARACS,. CARPAL TUNNEL, ABDOMINAL TUMOR REMOVED, R PINKY TOE I AND D, THORACENTESIS March, CARDIAC CATHERIZATION 04/29, NASAL SURGERY JUL 2012 Hx Anesthesia Reactions: No - Immunization History Immunizations Up to Date: Yes Infectious Disease History: No Infectious Disease History: Denies: Hx Hepatitis, Hx Human Immunodeficiency Virus (HIV), History Other Infectious Disease, Traveled Outside the [place] in Last 30 Days - Family History Known Family History: Positive: Hypertension - Mother's side, Diabetes - Father' s side - Social History Alcohol Use: None Hx Substance Use: No Substance Use Type: Reports: None Hx Tobacco Use: Yes Smoking Status (MU): Former Smoker Type: Cigarettes Have You Smoked in the Last Year: No Review of Systems Constitutional: Negative Eyes: Negative ENT: Negative Positive: Chest Pain Respiratory: Negative Gastrointestinal: Negative Genitourinary: Negative Musculoskeletal: Negative Skin: Negative Neurological: Negative Psychological: Normal All Other Systems Reviewed And Are Negative: Yes Physical Exam - Summary Physical Exam Summary: Chest tender to palpation diffusely. No pain with movement of upper extremities. Triage Information Reviewed: Yes Vital Signs On Initial Exam: Initial Vitals Temp Pulse Resp BP Pulse Ox 98.6 F 68 16 125/64 100 09/22/19 18:25 09/22/19 18:25 09/22/19 18:25 09/22/19 18:25 09/22/19 18:25 Vital Signs Reviewed: Yes Appearance: Positive: Well-Appearing Skin: Positive: Warm Head/Face: Positive: Normal Head/Face Inspection Eyes: Positive: Normal Neck: Positive: Supple Respiratory/Lung Sounds: Positive: Clear to Auscultation Cardiovascular: Positive: Normal Abdomen Description: Positive: Nontender Musculoskeletal: Positive: Normal Neurological: Positive: Normal Psychiatric: Positive: Normal AVPU Assessment: Alert - [place] Coma Scale Best Eye Response: 4 - Spontaneous Best Motor Response: 6 - Obeys Commands Best Verbal Response: 5 - Oriented Coma Scale Total: 15 Procedures - Sedation Patient Received Moderate/Deep Sedation with Procedure: No Diagnostics - Vital Signs Vital Signs Temp Pulse Resp BP Pulse Ox 09/22/19 18:54 98.4 F 68 16 152/73 97 09/22/19 18:48 64 20 97 09/22/19 18:25 98.6 F 68 16 125/64 100 - Laboratory Result Diagrams: 09/22/19 19:27 09/22/19 19:27 Lab Statement: Any lab studies that have been ordered have been reviewed, and results considered in the medical decision making process. Chest Pain Course/Dx - Course Course Of Treatment: Complains of chest pain after bending over to pick something up today at 2 PM. Patient from [place]. States chest pain is intermittent, sternal, with radiation to back. Pain is worse with movement. 2 doses of NTG with no relief. Denies fever, cough, sore throat, SOB, N/3/D, abdominal pain, change in urine, change in BM, dizziness. Medical history is DM , CK D, Sjogren's, HTN, anemia. Vital signs within normal limits. Labs within normal limits. A CBC 11.4 patient baseline. Creatinine 1.4 for patient baseline. Chest x-ray and ribs negative. CT negative. Serial troponins negative. EKG sinus rhythm with heart rate of 61, normal P axis. - Diagnoses Provider Diagnoses: Chest wall pain Discharge ED - Sign-Out/Discharge Documenting (check all that apply): Patient Departure - Discharge Plan Condition: Stable Disposition: HOME Patient Education Materials: Chest Wall Pain (ED) Referrals: Virgilio Zuleta MD [Primary Care Provider] - Additional Instructions: Tylenol for chest wall pain. Follow-up with primary care. - Billing Disposition and Condition Condition: STABLE Disposition: Home - Attestation Statements Provider Attestation: I was available for consultation for this patient. I did not evaluate the patient, or participate in any medical decision making or disposition decisions unless I am specifically named in the chart as having consulted on the patient. If I have consulted on the patient, please see my own ED note on the patient encounter. Leila Mcadams MD
--- OUTSIDE RECORDS SUMMARY | 2019-09-22 19:31 | XMS REPORT | Continuity of Care Document ---
:1940 External Reference #:[id number] Author Name Alma Chong M.D. (transmitted by agent of provider Mi Hsieh) Address [address] [place] [address] Care Team Providers Name Role Phone Virgilio Zuleta MD - Family Medicine Care Team Information Stroke Program Coordinator [phone] Jeremias Rojo MD - Orthopaedic Care Team Information Stroke Program Coordinator Surgery Steve Banuelos MD - Endocrinology, Care Team Information Stroke Program Coordinator [phone] Diabetes & Metabolism Problems Active Problems Provider Date Coronary arteriosclerosis Nadine Moctezuma M.D. Onset: 08/19/2014 Pure hypercholesterolemia Nadine Moctezuma M.D. Onset: 08/19/2014 Benign essential hypertension Nadine Moctezuma M.D. Onset: 08/19/2014 Obstructive sleep apnea syndrome Teresa Veliz MD Onset: 08/30/2014 Diabetic polyneuropathy Adrian Salgado M.D. Onset: 09/13/2014 Sjogren's syndrome Adrian Salgado M.D. Onset: 09/13/2014 Degenerative joint disease involving Adrian Salgado M.D. Onset: 09/13/2014 multiple joints Low back pain Adrian Salgado M.D. Onset: 09/13/2014 Pain in limb Adrian Salgado M.D. Onset: 09/13/2014 Myalgia & Myositis Unspecified Adrian Salgado M.D. Onset: 09/13/2014 Bursitis Adrian Salgado M.D. Onset: 09/29/2014 Carpal tunnel syndrome Kimberli Watters M.D. Onset: 03/24/2015 Hip pain Kimberli Watters M.D. Onset: 03/24/2015 Enthesopathy of hip region Jeremias Rojo M.D. Onset: 05/24/2015 Chronic pain syndrome Stephan Mott M.D. Onset: 05/29/2015 Disorder of lumbar disc Stephan Mott M.D. Onset: 05/29/2015 Essential hypertension Nadine Moctezuma M.D. Onset: 08/07/2015 Atherosclerotic heart disease of [place] Nadine Moctezuma M.D. 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 Onset: 08/07/2015 neuropathy, unspecified Enthesopathy of knee Jeremias Rojo M.D. Onset: 09/20/2015 Morbid obesity Teresa Veliz MD Onset: 11/29/2015 Gastroesophageal reflux disease Teresa Veliz MD Onset: 11/29/2015 Obesity Tersea Veliz MD Onset: 02/27/2016 Aortic valve disorder Nadine Moctezuma M.D. Onset: 01/28/2019 Localized, primary osteoarthritis of the Almanavin Chong M.D. Onset: 07/26/2019 pelvic region and thigh Social History Type Date Description Comments Sex Unknown Tobacco Use Start: Unknown End: Former Cigarette Smoker Unknown Smoking Status Reviewed: 07/26/19 Former Cigarette Smoker ETOH Use Denies alcohol use Tobacco Use Start: Unknown End: Patient is a former quit in 2003 Unknown smoker Recreational Drug Use Denies Drug Use Exercise Type/Frequency Exercises regularly trying to get exercise Allergies, Adverse Reactions, Alerts Active Allergies Reaction Severity Comments Date Plavix weakness 05/03/2014 Environmental Trees, grass, dust 02/05/2016 Cat Dander per patient 02/05/2016 Dog Dander per patient 02/05/2016 Medications Active Medications SIG Qnty Indications Ordering Date Provider Bupropion Hydrochloride take 1 tablet 30tabs Clemencia Rodriguez, 12/09/2018 ER (SR) by mouth every LABEL STITCHER 200mg Tablets ER 12HR day Nasonex 2 sprays ramonita 17gm J30.9 Clemencia Rodriguez, 12/05/2017 50mcg/Act Suspension each side twice LABEL STITCHER daily Diclofenac Sodium apply 15 drops 150units M25.569 Wilberofierika Rodriguez, 2016 1.5% Solution to knees 2x LABEL STITCHER daily Prevident 5000 Dry Mouth use daily in 100ml M35.00 Zsofia Michael, 2016 1.1% the evenings LABEL STITCHER Gel (pt is not using regularly) Isosorbide Mononitrate ER 1 by mouth 90tabs Shallish, 11/24/2016 30mg every day MD Virgilio Tablets ER 24HR Ranitidine HCL 1 table po Shallish, 11/20/2016 300mg daily MD Virgilio Automatic Blood Pressure 1 kit large R07.9 Nadine Moctezuma, 02/16/2016 Monitor cuff Nadya Kit Aspirin Low Strength 1 tablet po Unknown 02/03/2016 81mg daily Chewtabs Ranexa 1 by mouth 180tabs Nadine Moctezuma, 01/30/2016 500mg Tablets ER 12HR twice a day MYamel Wrist Immobulization right hand dx: 1unmirlande James 12/19/2015 Splint g56.01 Nadya Watters Hydroxychloroquine take one tablet 90tabs M35.00 Clemencia Rodriguez, 11/28/2015 Sulfate by mouth daily LABEL STITCHER 200mg Tablets Z79.899 Gabapentin Take 3 Tablets By 90tabs E11.40 Kimberli Watters, 06/16/2014 600mg Tablets Mouth Every Day as M.DSuzi Directed Aranesp (Albumin Free) sc q4 weeks (pt 1units Ad Alberts, 2013 not using) Nadya, [facility], FASNC 60mcg/ML Solution Oxycontin one by mouth every Unknown 10mg Tab ER 12H 12 hours Abuse-Det Novolog Flexpen Unknown Travatan Z Instill 1 Drop In Unknown 0.004% The Right Eye Once Solution Every Night Before Bedtime Advair HFA Inhale 2 Puffs By Unknown 115-21mcg/Act Mouth Two Times Aerosol Daily Via Aerochamber, Rinse Mouth After Use Loratadine Take 1 Tablet By Unknown 10mg Tablets Mouth Every Day as needed for allergy symptoms Metoprolol Succinate Take 1 Tablet By Unknown ER Mouth Every Day 25mg Tablets ER 24HR Losartan Potassium Take 1 Tablet By Unknown 25mg Mouth Every Day Tablets Refresh Tears 1 gtt both eyes Unknown 0.5% twice daily Betaxalol 1 gtt in each eye Unknown 0.5% Solution twice daily Fiber Select Gummies 2 chewtabs by 120units Unknown mouth daily Chewtabs Diabetic Neuropathy Apply to both feet Unknown Cream (OTC) bid Cream Miralax 17 gm every day 238gm Unknown 3350NF Powder mixed w/ 8 oz water/juice daily as needed Albuterol Sulfate 1 vial via 100units Unknown nebulizer 4 times (2.5mg/3ML) 0.083% daily as needed Nebulizer Proair HFA inhale 2 puffs q Unknown 108(90Base) 2-4h prn mcg/Act Aerosol Cpap for use nightly Unknown Device for sleep apnea Nitrostat one sl q5min up to 25tabs Unknown 0.4mg Tablets 3 doses as needed Sub Hydrocodone-Acetaminop 1 po Am,1 po PM Unknown hen prn 10-325 Trazodone HCL 1 tablet at 30tabs Unknown 50mg bedtime Tablets Fluticasone Propionate 2 sprays each 16units Unknown nostril daily( 50mcg/Act Suspension used seasonal fall, winter, spring) as needed Atorvastatin Calcium take 1 tablet at 90tabs Unknown 20mg bedtime Tablets Medications Administered in Office Medication SIG Qnty Indications Ordering Provider Date Inj, Regadenoson, 0.1 MG Jj Yarbrough DO [facility] 12/29/2018 Injection Technetium TC 99M Jj Yarbrough, DO [facility] 12/29/2018 Tetrofosmin, Per Unit Dose Up To 40 Millicuries Injection Inj, Regadenoson, 0.1 MG Abraham Shaw M.D. 06/19/2017 Injection Technetium TC 99M Abraham Shaw M.D. 06/19/2017 Tetrofosmin, Per Unit Dose Up To 40 Millicuries Injection Technetium TC 99M Nadine Moctezuma M.D. 06/17/2017 Tetrofosmin, Per Unit Dose Up To 40 Millicuries Injection Technetium TC 99M [facility] 08/16/2015 Tetrofosmin, Per Unit Dose Up To 40 Millicuries Injection Inj, Regadenoson, 0.1 MG Ad Alberts M.D., 08/15/2015 Injection FACC, FASNC Technetium TC 99M Ad Alberts M.D., 08/15/2015 Tetrofosmin, Per Unit Dose Up FACC, FASNC To 40 Millicuries Injection Technetium TC 99M Nadine Moctezuma M.D. 08/15/2015 Tetrofosmin, Per Unit Dose Up To 40 Millicuries Injection Triamcinolone (Kenalog) Adrian Salgdao M.D. 09/28/2014 Injection Inj, Regadenoson, 0.1 MG Ad Alberts M.D., 05/09/2014 Injection FACC, FASNC Aminophylline Ad Alberts M.D., 05/09/2014 Injection FACC, FASNC Technetium TC 99M Ad Alberts M.D., 05/09/2014 Tetrofosmin, Per Unit Dose Up FACC, FASNC To 40 Millicuries Injection Immunizations CPT Code Status Date Vaccine Lot # [id number] Given 07/28/2015 Fluvirin Im 3Yrs And Older [id number] Given 08/13/2014 Influenza Virus 3Yrs & Over [id number] Given 08/30/2012 Pneumonia Vaccine Vital Signs Date Vital Result Comment 07/26/2019 10:07am Height 61.75 inches 5'1.75" Weight 208.00 lb Heart Rate 68 /min BP Systolic 142 mmHg BP Diastolic 82 mmHg Body Temperature 96.6 F Pain Level 8 BMI (Body Mass Index) 38.3 kg/m2 01/28/2019 2:14pm Height 61.75 inches 5'1.75" Weight 212.00 lb with shoess Heart Rate 78 /min BP Systolic Sitting 122 mmHg Lue reg cuff BP Diastolic Sitting 72 mmHg Lue reg cuff BP Systolic Standing 130 mmHg Lue reg cuff BP Diastolic Standing 78 mmHg Lue reg cuff Respiratory Rate 16 /min BMI (Body Mass Index) 39.1 kg/m2 Ejection Fraction 55-60% date 01/12/19 echo Results Description No Information Available Procedures Date Code Description Status 06/27/2019 58012 ECHO Transthorasic Realtime 2D W Doppler & Color Flow Completed Hosp 11/14/2014 323599888 Diabetic Retinal Eye Exam Completed 12/28/2008 17012536 Colonoscopy Completed Medical Devices Description No Information Available Encounters Type Date Location Provider Dx Diagnosis Office Visit 06/27/2019 [facility] Ngozi Arjune, R07.9 Chest pain, 9:40a Assoc,clau PA-C unspecified Hospitalists I16.0 Hypertensive urgency I50.30 Unspecified diastolic (congestive) heart failure M35.00 Sicca syndrome, unspecified E11.9 Type 2 diabetes mellitus without complications G47.33 Obstructive sleep apnea (adult) (pediatric) N18.3 Chronic kidney disease, stage 3 (moderate) N17.9 Acute kidney failure, unspecified D64.9 Anemia, unspecified J30.2 Other seasonal allergic rhinitis Office Visit 06/25/2019 [facility] Monica Edgar, R07.9 Chest pain, 9:38a Assocclau M.D. unspecified Hospitalists M35.00 Sicca syndrome, unspecified E11.9 Type 2 diabetes mellitus without complications E78.5 Hyperlipidemia, unspecified N18.3 Chronic kidney disease, stage 3 (moderate) K29.60 Other gastritis without bleeding I10 Essential (primary) hypertension Office Visit 01/28/2019 3:00p [facility] Nadine Moctezuma, I25.10 [facility] [place] disease of [place] coronary artery w/o ang pctrs E78.00 Pure hypercholesterolemia, unspecified E11.8 Type 2 diabetes mellitus with unspecified complications I35.0 Nonrheumatic aortic (valve) stenosis Assessments Date Code Description Provider 07/26/2019 M25.551 Pain in right hip Alma Chong M.D. 07/26/2019 M25.552 Pain in left hip Alma Chong M.D. 07/26/2019 M16.11 Unilateral primary osteoarthritisAlma M.D. right hip 07/26/2019 M16.12 Unilateral primary osteoarthritisAlma M.D. left hip 07/26/2019 E66.01 Morbid (severe) obesity due to Alma Chong M.D. excess calories 07/26/2019 M62.81 Muscle weakness (generalized) Alma Chong M.D. 06/27/2019 R07.9 Chest pain, unspecified Ngozi O'lbane, PA-C 06/27/2019 R07.9 Chest pain, unspecified Ad Alberts M.D., [facility] 06/27/2019 I16.0 Hypertensive urgency Ngozi O'blane, PA-C 06/27/2019 I50.30 Unspecified diastolic (congestive) Ngozi O'blane, PA-C heart failure 06/27/2019 M35.00 Sicca syndrome, unspecified Ngozi O'blane, PA-C 06/27/2019 E11.9 Type 2 diabetes mellitus without Ngozi O'blane, PA-C complications 06/27/2019 G47.33 Obstructive sleep apnea (adult) Ngozi O'blane, PA-C (pediatric) 06/27/2019 N18.3 Chronic kidney disease, stage 3 Ngozi O'blane, PA-C (moderate) 06/27/2019 N17.9 Acute kidney failure, unspecified Ngozi O'blane, PA-C 06/27/2019 D64.9 Anemia, unspecified Ngozi O'blane, PA-C 06/27/2019 J30.2 Other seasonal allergic rhinitis Ngozi O'blane, PA-C 06/26/2019 R07.9 Chest pain, unspecified Peggy Dueñas, N.P. 06/26/2019 D64.9 Anemia, unspecified Peggy Dueñas, N.P. 06/26/2019 E11.9 Type 2 diabetes mellitus without Peggy Dueñas, N.P. complications 06/26/2019 N18.9 Chronic kidney disease, unspecified Peggy Dueñas, N.P. 06/26/2019 F32.9 Major depressive disorder, single Peggy Dueñas, N.P. episode, unspecified 06/26/2019 M35.00 Sicca syndrome, unspecified Peggy Dueñas, N.P. 06/25/2019 R07.9 Chest pain, unspecified Monica Edgar M.D. 06/25/2019 M35.00 Sicca syndrome, unspecified Monica Herve, M.D. 06/25/2019 E11.9 Type 2 diabetes mellitus without Monica Edgar M.D. complications 06/25/2019 E78.5 Hyperlipidemia, unspecified Monica Edgar M.D. 06/25/2019 N18.3 Chronic kidney disease, stage 3 Monica Edgar M.D. (moderate) 06/25/2019 K29.60 Other gastritis without bleeding Monica Edgar M.D. 06/25/2019 I10 Essential (primary) hypertension Monica Edgar M.D. 01/28/2019 I25.10 Atherosclerotic heart disease of Nadine Moctezuma M.D. [place] coronary artery with 01/28/2019 E78.00 Pure hypercholesterolemia, Nadine Moctezuma M.D. unspecified 01/28/2019 E11.8 Type 2 diabetes mellitus with Nadine Moctezuma M.D. unspecified complications 01/28/2019 I35.0 Nonrheumatic aortic (valve) stenosis Nadine Moctezuma M.D. Plan of Treatment Future Appointment(s):09/02/2019 1:30 pm - Alma Chong M.D.08/12/2019 10:00 am - Galileo Monk N.P. at [facility]07/26/2019 - Alma Chong M.D.M25.551 Pain in right hipFollow up:Follow up: 7-10 days before cilakywK35.552 Pain in left hipM16.11 Unilateral primary osteoarthritis, right hipNew Therapy:Physical VepznczS30.12 Unilateral primary osteoarthritis, left hipE66.01 Morbid (severe) obesity due to excess nejmyhpqL40.81 Muscle weakness (generalized) Functional Status Description No Information Available Mental Status Description No Information Available Referrals Description No Information Available
--- OUTSIDE RECORDS SUMMARY | 2019-09-22 19:31 | XMS REPORT | Continuity of Care Document ---
:1940 External Reference #:[id number] Author Name Alisha Hernández NP (transmitted by agent of provider Janeen Raygoza) Address [address] [place] [id number] Care Team Providers Name Role Phone Virgilio Zuleta MD - Family Medicine Care Team Information Television Picture Tube Rebuilder Jeremias Rojo MD - Orthopaedic Care Team Information Television Picture [employer] Rebuilder Surgery Steve Banuelos MD - Endocrinology, Care Team Information Television Picture Tube Rebuilder Diabetes & Metabolism Problems Active Problems Provider [...] M.D. 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 Onset: 08/07/2015 neuropathy, unspecified Enthesopathy of knee Jeremias Rojo M.D. Onset: 09/20/2015 Morbid obesity Teresa Veliz MD Onset: 11/29/2015 Gastroesophageal reflux disease Teresa Veliz MD Onset: 11/29/2015 Obesity Teresa Veliz MD Onset: 02/27/2016 Aortic valve disorder Nadine Moctezuma M.D. Onset: 01/28/2019 Social History Type Date Description Comments Sex Unknown Tobacco Use Start: Unknown End: Former Cigarette Smoker Unknown Smoking Status Reviewed: 01/28/19 Former Cigarette Smoker ETOH Use Denies alcohol [...] Provider Bupropion Hydrochloride take 1 tablet 30tabs Zsofia Michael, 12/09/2018 ER (SR) by mouth every [employer] 200mg Tablets ER 12HR day Nasonex 2 sprays ramonita 17gm J30.9 Zsofia Michael, 12/05/2017 50mcg/Act Suspension each side twice [employer] daily Diclofenac Sodium apply 15 drops 150units M25.569 Zsofia Michael, 2016 1.5% Solution to knees 2x [employer] daily Prevident 5000 Dry Mouth use daily in 100ml M35.00 Zsofia Michael, 2016 1.1% the evenings [employer] Gel (pt is not using regularly) Isosorbide [...] Clemencia Rodriguez, 11/28/2015 Sulfate by mouth daily [employer] 200mg Tablets Z79.899 Gabapentin Take 3 Tablets By 90tabs E11.40 Kimberli Watters, 06/16/2014 600mg Tablets Mouth Every Day as M.DSuzi Directed Aranesp (Albumin Free) sc q4 weeks (pt 1units Ad Alberts, 2013 not using) Nadya, [facility] 60mcg/ML Solution Travatan Z Instill 1 Drop In Unknown [...] Provider Date Inj, Regadenoson, 0.1 MG Jj Yarbrough, DO [facility] 12/29/2018 Injection Technetium TC 99M Jj Yarbrough, DO [facility] 12/29/2018 Tetrofosmin, Per Unit Dose Up To [...] To 40 Millicuries Injection Triamcinolone (Kenalog) Adrian Salgado M.D. 09/28/2014 Injection Inj, Regadenoson, 0.1 MG Ad Alberts M.D., 05/09/2014 Injection FACC, FASNC Aminophylline Ad Alberts M.D., 05/09/2014 Injection FACC, FASNC Technetium TC 99M Ad Alberts M.D., 05/09/2014 Tetrofosmin, Per Unit Dose Up FACC, FASJANENE To 40 Millicuries Injection Immunizations CPT Code Status Date Vaccine Lot # [id number] Given 07/28/2015 Fluvirin Im 3Yrs And Older 20277 Given 08/13/2014 Influenza Virus 3Yrs & Over 23022 Given 08/30/2012 Pneumonia Vaccine Vital Signs Date Vital Result Comment 01/28/2019 2:14pm Height 61.75 inches 5'1.75" Weight 212.00 lb with shoess Heart Rate 78 /min BP Systolic Sitting 122 mmHg Lue reg cuff BP Diastolic Sitting 72 mmHg Lue reg cuff BP Systolic Standing 130 mmHg Lue reg cuff BP Diastolic Standing 78 mmHg Lue reg cuff Respiratory Rate 16 /min BMI (Body Mass Index) 39.1 kg/m2 Ejection Fraction 55-60% date 01/12/19 echo 12/18/2018 1:18pm Height 61.75 inches 5'1.75" Weight 220.00 lb with shoes Heart Rate 60 /min BP Systolic Sitting 140 mmHg Lue lg cuff BP Diastolic Sitting 60 mmHg Lue lg cuff BP Systolic Standing 134 mmHg Lue lg cuff BP Diastolic Standing 60 mmHg Lue lg cuff Respiratory Rate 16 /min BMI (Body Mass Index) 40.6 kg/m2 Results Description No Information Available Procedures Date Code Description Status 06/27/2019 72075 ECHO Transthorasic Realtime 2D W Doppler & Color Flow Completed Hosp 11/14/2014 706487399 Diabetic Retinal Eye Exam Completed 12/28/2008 66434161 Colonoscopy Completed Medical Devices Description No Information Available Encounters Type Date Location Provider Dx Diagnosis Office Visit 06/27/2019 [facility] Ngozi Thurman, R07.9 Chest pain, 9:40a Assoc[facility] unspecified Hospitalists I16.0 Hypertensive urgency I50.30 Unspecified diastolic (congestive) heart failure M35.00 Sicca syndrome, unspecified E11.9 Type 2 diabetes mellitus without complications G47.33 Obstructive sleep apnea (adult) (pediatric) N18.3 Chronic kidney disease, stage 3 (moderate) N17.9 Acute kidney failure, unspecified D64.9 Anemia, unspecified J30.2 Other seasonal allergic rhinitis Office Visit 06/25/2019 [facility] Monica Edgar, R07.9 Chest pain, 9:38a Assocclau M.D. unspecified Hospitalists M35.00 Sicca syndrome, unspecified E11.9 Type 2 diabetes mellitus without complications E78.5 Hyperlipidemia, unspecified N18.3 Chronic kidney disease, stage 3 (moderate) K29.60 Other gastritis without bleeding I10 Essential (primary) hypertension Office Visit 01/28/2019 3:00p [facility] Nadine Moctezuma, I25.10 [facility] [place] disease of [place] coronary artery w/o ang pctrs E78.00 Pure hypercholesterolemia, unspecified E11.8 Type 2 diabetes mellitus with unspecified complications I35.0 Nonrheumatic aortic (valve) stenosis Assessments Date Code Description Provider 06/27/2019 R07.9 Chest pain, unspecified Ngozi Teto'blane, PA-C 06/27/2019 R07.9 Chest pain, unspecified Ad Femi Alberts M.D., [facility] 06/27/2019 I16.0 Hypertensive urgency Ngozi Teto'blane PA-C 06/27/2019 I50.30 Unspecified diastolic (congestive) Ngozi Teto'blane, PA-C heart failure 06/27/2019 M35.00 Sicca syndrome, unspecified Ngozi O'blane, PA-C 06/27/2019 E11.9 Type 2 diabetes mellitus without Ngozi O'blane, PA-C complications 06/27/2019 G47.33 Obstructive sleep apnea (adult) LUCIEN Pandey-C (pediatric) 06/27/2019 N18.3 Chronic kidney disease, stage 3 Ngozi Thurman PA-C (moderate) 06/27/2019 N17.9 Acute kidney failure, unspecified Ngozi Thurman PA-C 06/27/2019 D64.9 Anemia, unspecified Ngozi Thurman PA-C 06/27/2019 J30.2 Other seasonal allergic rhinitis LUCIEN Pandey-C 06/26/2019 R07.9 Chest pain, unspecified Peggy Spenser, N.P. 06/26/2019 D64.9 Anemia, unspecified Peggy Spenser, N.P. 06/26/2019 E11.9 Type 2 diabetes mellitus without Peggy Spenser, N.P. complications 06/26/2019 N18.9 Chronic kidney disease, unspecified Peggy Spenser, N.P. 06/26/2019 F32.9 Major depressive disorder, single Peggy Spenser, N.P. episode, unspecified 06/26/2019 M35.00 Sicca syndrome, unspecified Peggy Spenser, N.P. 06/25/2019 R07.9 Chest pain, unspecified Monica Edgar M.D. 06/25/2019 M35.00 Sicca syndrome, unspecified Monica Edgar M.D. 06/25/2019 E11.9 Type 2 diabetes mellitus without Monica Edgar M.D. complications 06/25/2019 E78.5 Hyperlipidemia, unspecified Monica Edgar M.D. 06/25/2019 N18.3 Chronic kidney disease, stage 3 Monica Edgar M.D. (moderate) 06/25/2019 K29.60 Other gastritis without bleeding Monica Edgar M.D. 06/25/2019 I10 Essential (primary) hypertension Monica Edgar M.D. 01/28/2019 I25.10 Atherosclerotic heart disease of Nadine Moctezuma M.D. [place] coronary artery with 01/28/2019 E78.00 Pure hypercholesterolemia, Nadine Moctezuma M.D. unspecified 01/28/2019 E11.8 Type 2 diabetes mellitus with Nadine Moctezuma M.D. unspecified complications 01/28/2019 I35.0 Nonrheumatic aortic (valve) stenosis Nadine Moctezuma M.D. Plan of Treatment Future Appointment(s):08/12/2019 10:00 am - Galileo Monk N.P. at [facility]01/28/2019 - Nadine Moctezuma M.D.I25.10 Atherosclerotic heart disease of [place] coronary artery withComments:No evidence of new significant disease on the stress test. The stress test is normal.The echo shows a strong heart and mild valve problems.Follow up:6 months with ECG with MD or NPRecommendations:I think the recent pain was likely reflux related as it occurred bending over. Continue taking yourmedications the way your family is laying them out for you, I think this is helping.E78.00 Pure hypercholesterolemia, unspecifiedComments:Well controlled based on Dr Zuleta labs.E11.8 Type 2 diabetes mellitus with unspecified qrbhapvyoziwoY58.0 Nonrheumatic aortic (valve) stenosisComments:mild tighting of this valve, it won't give you problems now, we will watch it over time. Functional Status Description No Information Available Mental Status Description No Information Available Referrals Description No Information Available
--- OUTSIDE RECORDS SUMMARY | 2019-09-22 19:31 | XMS REPORT | Continuity of Care Document ---
:1940 External Reference #:[id number] Author Name Virgilio Zuleta M.D. Address [address] [place] [address] Care Team Providers Name Role Phone Kelsey Styles NP - Primary Care Care Team Information Tafe Teacher Eric Somers MD - Care Team Information Tafe Teacher [phone] Otolaryngology Jeremias Chavez - Allergy & Care Team Information Tafe Teacher Immunology Lg Machado - Nephrology Care Team Information Tafe Teacher [phone] Nomi Beebe - Orthopaedic Surgery Care Team Information Tafe Teacher [phone] Marianna Alexandre - Physical Medicine Care Team Information Tafe Teacher & Rehabilitation [facility] - Interventional Pain Care Team Information Tafe Teacher [phone] Medicine [facility] Occup[facility] Therapy - Care Team Information Tafe Teacher [phone] Occupational Therapist Alma Chong MD - Orthopaedic Care Team Information Tafe Teacher Surgery Problems Active Problems Provider Date Type 2 [...] renal disease Virgilio Zuleta M.D. Onset: 08/21/2015 Gastroesophageal reflux disease Virgilio Zuleta M.D. Onset: 06/11/2016 Depressive disorder Virgilio Zuleta M.D. Onset: 07/03/2017 Degenerative joint disease involving Virgilio Zuleta M.D. Onset: 05/08/2018 multiple joints Glaucoma Virgilio Zuleta M.D. Onset: 12/24/2018 Low back pain Virgilio Zuleta M.D. Onset: 04/15/2019 Dementia Virgilio Zuleta M.D. Onset: 06/14/2019 Arthralgia of the pelvic region and thigh Virgilio Zuleta M.D. Onset: 08/17 Social History Type Date Description Comments Sex [...] Virgilio FSuzi 05/11/2019 100Unit/ML Solution before each Nadya Zuleta meal none if < 100 Oxycontin 1 by mouth 3 60tabs Virgilio FSuzi 04/15/2019 10mg Tab ER 12H times daily Nadya Zuleta Abuse-Det -[place] Bupropion Hydrochloride take 2 tablet 180tabs Virgilio FSuzi 03/31/2019 ER (SR) by mouth every Nadya Zuleta 100mg Tablets ER 12HR morning Aspirin 81 1 by mouth 90tabs Virgilio F. 03/31/[address] every day Nadya Zuleta Novolog 5 units before 30ml Virgilio FSuzi 12/24/2018 100Unit/ML Solution meals , none if Nadya Zuleta < 100 Cozaar Take 1 Tablet 90tabs Virgilio F. 09/28/2018 25mg Tablets By Mouth Every Nadya Zuleta Day Metoprolol Succinate ER Take 1 Tablet 90tabs Virgilio F. 01/14/2018 25mg By Mouth Every Nadya Zuleta Tablets ER 24HR Day Loratadine Take 1 Tablet 90tabs Virgilio F. 01/07/2018 10mg Tablets By Mouth Every Jacob ZuletaDSuzi Day as needed for allergy symptoms Betaxolol HCL 1 gtt ou bid 5ml Virgilio F. 02/26/2017 0.5% Solution Nadya Zuleta Ranexa take 1 tablet 180tabs Valery Marcy 04/17/2016 500mg Tablets ER 12HR by mouth 2 Wiley, [employer] ANALYST times per day for chest pain Hydrocodone-Acetaminophen Take 1 Tablet 120tabs Virgilio F. 11/02/2014 By Mouth Four Nadya Zuleta 10-325mg Tablets Times Daily as Needed For Pain - Maximum Daily Dose Of 4 Per Day Albuterol Sulfate use one vial 75ml R05 Virgilio FSuzi 08/11/2014 (2.5mg/3ML) via nebulizer Nadya Zuleta 0.083% Nebulizer four times a day as needed Mometasone Furoate apply three 30gm Virgilio F. 08/11/2014 0.1% Cream times a day as Nadya Zuleta needed Gabapentin Take 1 Tablet 360tabs Virgilio F. 07/13/2014 600mg Tablets By Mouth Three Nadya Zuleta Times Daily Advair Diskus 1 puff twice a 1units Virgilio FSuzi 09/03/2013 250-50mcg/Dose day Nadya Zuleta Aerosol Proair HFA Inhale 2 Puffs 8.5units Virgilio F. 09/03/2013 108(90Base) mcg/Act By Mouth Every Nadya [...] Mononitrate ER take one tablet 90tabs Virgilio FSuzi 04/25/2012 [facility] 24HR daily Fluticasone Propionate Use Two Sprays 16gm Virgilio FSzui 05/24/2011 In The Affected [facility] M.D. 50mcg/Act Suspension Nostril Every Day as needed Trazodone HCL take one tablet 90tabs Virgilio FSuzi 06/20/2010 50mg Tablets by mouth at [facility] M.DSuzi bedtime as needed Hydroxychloroquine 1 by mouth 90tabs Virgilio FSuzi Sulfate every day [facility] M.DSuzi 200mg Tablets Diclofenac Sodium 15 gtt apply to 150ml Virgilio F. 1.5% Solution left kneee [facility] M.DSuzi twice a day as needed for arthritis pain Travatan Z 1 drop into 2.500ml Unknown 0.004% Solution left eye every night at bedtime Ranitidine HCL Take 1 Tablet 90tabs Virgilio F. 300mg Tablets By Mouth Every Shallish, M.D. Day Cosopt 1 gtt left eye 10ml Unknown 22.3-6.8mg/ml Solution bid History Medications Tylenol take 2 tablets(650mg) Virgilio ModeSuzi Zuleta, 05/11/2019 - 325mg by mouth every 4 hours M.D. 2019 Tablets as needed for pain Wheelchair dx m15.0, m54.5, Virgilio ModeSuzi Zuleta, 04/29/2019 - Standard m25.561, m25.562 M.D. 2019 Lidocaine Apply To Painful Area 30units Virgilio ModeSuzi Zuleta, 04/20/2019 - 5% On Back For 12 Hours & M.D. 2019 Patches TH Remove For 12 Hours Wheelchair dx diabetes mellitus, Virgilio ModeSuzi Zuleta, 04/12/2019 - Standard e11.9 M.D. 04/15/2019 Note needs freestyle test 100units Virgilio ModeSuzi Zuleta, 03/31/2019 - strips dx diabetes M.D. 04/15/2019 mellitus, e11.9 Note needs freestyle 100units Virgilio ModeSuzi Zuleta, 03/31/2019 - lancets, test bid M.D. 04/15/2019 e11.9 Rolling Walker , dx arthritis duration 1units Virgilio ModeSuzi Zuleta, 2018 - With Wheels And lifelong M.D. 03/31/2019 Brakes Humalog inject 5 units before 30ml Virgilio Zuleta, 03/25/2019 - each meal none if < M.D. 03/31/2019 100Unit/ML 100 Solution Novolog Flexpen 5 units before meals, 45ml Virgilio ModeSuzi Zuleta, 03/23/2019 - none if <100 M.D. [...] CPT Code Status Date Vaccine Lot # [id number] Given 08/21/2018 High-Dose, Influenza Virus Vacccine-fluzone 65 [id number] and older 08922 Given 07/03/2017 High-Dose, Influenza Virus Vacccine-fluzone 65 [id number] and older 69285 Given 07/18/2016 High-Dose, Influenza Virus Vacccine-fluzone 65 [id number] and older 73946 Given 09/07/2015 High-Dose, Influenza Virus Vacccine-fluzone 65 and older 11345 Given 05/27/2015 Zostivax 69012 Given 05/11/2015 Pneumococcal Conjugate Vacc-13 [id number] 02170 Given 08/11/2014 High-Dose, Influenza Virus Vacccine-fluzone 65 [id number] and older 02831 Given 07/13/2013 High-Dose, Influenza Virus Vacccine-fluzone 65 [id number] and older 46825 Given 09/09/2012 Tdap Tetanus, W Pertussis [id number] 03841 Given 09/09/2012 High-Dose, Influenza Virus Vacccine-fluzone 65 [id number] and older Q2038 Given 06/25/2011 Split Influenza Medicare: Fluzone [id number] 79361 Given 07/17/2010 DO Not Use Split Influenza Virus Vaccine [id number] 18410 Given 03/15/2010 Pneumococcal Immunization [id number] 49391 Given 07/04/2009 DO Not Use Split Influenza Virus Vaccine [id number] 53160 Given 07/05/2008 DO Not Use Split Influenza Virus Vaccine [id number] 95391 Given 08/11/2007 DO Not Use Split Influenza Virus Vaccine [id number] 95099 Given 12/19/2006 Tetanus And Diptheria Adult Preservative Free [id number] >7Yrs 34391 Given 08/20/2004 DO Not Use Split Influenza Virus Vaccine 58380 Given 08/05/2003 DO Not Use Split Influenza Virus Vaccine 21105 Given 08/28/2001 Influenza Immunization 60491 Given 07/29/2000 Pneumococcal Immunization Vital Signs Date Vital Result Comment 08/17/2019 11:37am BP Systolic 132 mmHg BP Diastolic 78 mmHg Heart Rate 62 /min Body Temperature 97.9 F Respiratory Rate 16 /min Height 62.25 inches 5'2.25" Weight 214.00 lb BMI (Body Mass Index) 38.8 kg/m2 07/01/2019 11:03am BP Systolic 128 mmHg BP Diastolic 54 mmHg Heart Rate 72 /min Body Temperature 97.7 F Respiratory Rate 16 /min Weight 200.00 lb Results Test Date Facility Test Result H/L Range Note Urine Culture And 07/08/2019 [facility] [place]rine Culture SEE RESULT 1, 2 Sensitivities BELOW Laboratory test 06/25/2019 [facility] Troponin I 0.00 ng/mL <0.04 3 finding Laboratory test 06/25/2019 [facility] Troponin I 0.00 ng/mL <0.04 4 finding Comp Metabolic Panel 06/25/2019 [facility] Sodium 141 mmol/L Normal 135-145 Potassium 3.8 mmol/L Normal 3.5-5.0 Chloride 108 mmol/L Normal 101-111 Co2 Carbon Dioxide 25 mmol/L Normal 22-32 Anion Gap 8 mmol/L Normal 2-11 Glucose 128 mg/dL High 70-100 Blood Urea Nitrogen 23 mg/dL Normal 6-24 Creatinine 1.10 mg/dL High 0.51-0.95 BUN/Creatinine Ratio 20.9 High 8-20 Calcium 9.0 mg/dL Normal 8.6-10.3 Total Protein 6.4 g/dL Normal 6.4-8.9 Albumin 3.6 g/dL Normal 3.2-5.2 Globulin 2.8 g/dL Normal 2-4 Albumin/Globulin Ratio 1.3 Normal 1-3 Total Bilirubin 0.20 mg/dL Normal 0.2-1.0 Alkaline Phosphatase 87 U/L Normal 34-104 Alt 8 U/L Normal 7-52 Ast 12 U/L Low 13-39 Egfr Non- 48.0 >60 Egfr 58.1 >60 5 CBC Auto Diff 06/25/2019 [facility] White Blood Count 8.6 10^3/uL Normal 3.5- 10.8 Red Blood Count 3.83 10^6/uL Normal 3.70-4.87 Hemoglobin 12.1 g/dL Normal 12.0-16.0 Hematocrit 36 % Normal 35-47 Mean Corpuscular Volume 94 fL Normal 80-97 Mean Corpuscular Hemoglobin 32 pg High 27-31 Mean Corpuscular HGB Conc 34 g/dL Normal 31-36 Red Cell Distribution Width 14 % Normal 10-15 Platelet Count 165 10^3/uL Normal 150-450 Mean Platelet Volume 11.2 fL High 7.4-10.4 Abs Neutrophils 5.9 10^3/uL Normal 1.5-7.7 Abs Lymphocytes 1.3 10^3/uL Normal 1.0-4.8 Abs Monocytes 1.1 10^3/uL High 0-0.8 Abs Eosinophils 0.2 10^3/uL Normal 0-0.6 Abs Basophils 0.1 10^3/uL Normal 0-0.2 Abs Nucleated RBC 0.0 10^3/uL Granulocyte % 69.4 % Lymphocyte % 14.7 % Monocyte % 12.5 % Eosinophil % 2.6 % Basophil % 0.8 % Nucleated Red Blood Cells % 0.0 Comprehensive Metabolic 06/14/2019 [facility]ma) Sodium 140 mEq/L 134-149 Prof Potassium 4.1 mEq/L 3.6-5.5 Chloride 108 mEq/L 94-112 Carbon Dioxide 24 mEq/L 21-32 Glucose 94 mg/dL 70-105 BUN 18 mg/dL 6-26 Creatinine 1.1 mg/dL 0.6-1.4 BUN/Creat Ratio 16.4 CALC 8.0-36.0 Calcium 9.2 mg/dL 8.6-10.2 Total Protein 6.1 g/dL Low 6.4-8.3 Albumin 3.8 g/dL 3.8-5.5 Globulin 2.3 g/dL 2.0-4.8 A/G Ratio 1.7 CALC 0.6-2.3 Alk. Phosphatase 87 U/L 30-110 Alt (SGPT) 11 U/L 7-35 Ast (Sgot) 13 U/L 5-34 Total Bilirubin 0.3 mg/dL 0.2-1.3 GFR Non- 51 ml/min/1.73m^ Low >=60 GFR >60 ml/min/1.73m^ >=60 Lipid Profile 06/14/2019 Mehdi Harris([facility]) Cholesterol 145 mg/dL 120- 200 Triglycerides 65 mg/dL 30-200 HDL Cholesterol 54 mg/dL 30-85 LDL (Calculated) 78 CALC 0-129 VLDL Cholesterol 13 mg/dL 0-50 HDL Risk Factor 2.7 CALC 0.0-4.4 Laboratory test 06/14/2019 Mehdi Harris([facility]) Vitamin B-12 504 pg/mL 230-1050 finding TSH 0.56 mIU/L 0.50-6.00 Free T4 1.14 ng/dL 0.75-1.54 CBC Electronic Fma 06/14/2019 Mehdi Harris([facility]) WBC 8.0 x10^3/UL 4.0- 10.0 RBC 3.73 x10^6/UL Low 3.93-6.00 HGB 11.7 g/dL Low 12.0-17.0 HCT 36 % 35-50 MCV 96.5 fL High 80.0-95.0 MCH 31.4 pg 25.6-32.2 MCHC 32.5 g/dL 32.2-36.0 RDW-CV 13.2 % 11.6-14.4 PLT 195 x10^3/UL 163-400 MPV 12.0 fL 9.4-12.4 Santino# 5.53 x10^3/UL 1.56-6.13 Lymph# 1.25 x10^3/UL 1.18-3.74 Desoto# 0.90 x10^3/UL High 0.24-0.82 Eos # 0.2 x10^3/UL 0.0-0.5 Baso # 0.06 x10^3/UL 0.01-0.08 Santino% 68.8 % 34.0-70.0 Lymph % 15.5 % Low 20.0-52.0 Desoto% 11.2 % 5.0-12.0 Eos% 2.4 % 0.7-7.0 Baso% 0.7 % 0.1-1.2 Laboratory test 06/14/2019 [facility] C Reactive 4.11 mg/L Normal <8.01 6, 7 finding Protein Urine Culture And 06/14/2019 [facility] Urine Culture SEE RESULT 8 Sensitivities BELOW Laboratory test 06/14/2019 [facility] Hemoglobin A1c 6.6 % High 4.1- 5.7 finding (607)- - (Fma) Ua - Micro (Fma) 06/14/2019 [facility] Medicine Appearance clear (607)- - Color yellow Glucose, Urine (Fma/CMC/CTX) negative Bilirubin negative Ketones negative SP Grav 1.015 Blood negative PH 7.0 Protein SSA NEG Urobil 0.2 Nitrite negative Leukocytes (Fma/CMC/Centrex) trace Hyaline - /Lpf Granular - /Lpf WBC (Fma,Centrex) 5-8 RBC 0-2 Mucus (Fma/CBC/Centrex) 0 /Lpf Epith rare /Lpf Bacteria trace /Hpf Amorphous (Fma/CMC/Centrex) 0 /Lpf Crystals, Fluid (Fma/CMC/CTX) 0 Z#Comments 0 Laboratory test 04/15/2019 [facility] Hemoglobin A1c 6.4% % High 4.1 -5.7 finding (607)- - (Fma) Microalb, Random (Fma/CMC/CTX) >200 mg/L High 0.5-37 CBC Electronic (Fma New) 04/15/2019 [facility] WBC 9.13 4.0-10.0 (607)- - RBC 3.71 [...] 2.3 % 0.7-7.0 Basophil% 0.5 % 0-1.2 Comprehensive Metabolic 04/15/2019 [facility]) Sodium 144 mEq/L 134-149 Prof Potassium 3.3 mEq/L Low 3.6-5.5 9 Chloride 104 mEq/L 94-112 Carbon Dioxide 26 mEq/L 21-32 Glucose 206 mg/dL High 70-105 10 BUN 20 mg/dL 6-26 Creatinine 1.0 mg/dL 0.6-1.4 BUN/Creat Ratio 20.0 CALC 8.0-36.0 Calcium 8.7 mg/dL 8.6-10.2 Total Protein 6.0 g/dL Low 6.4-8.3 11 Albumin 3.8 g/dL 3.8-5.5 Globulin 2.2 g/dL 2.0-4.8 A/G Ratio 1.7 CALC 0.6-2.3 Alk. Phosphatase 88 U/L 30-110 Alt (SGPT) 11 U/L 7-35 Ast (Sgot) 11 U/L 5-34 Total Bilirubin 0.2 mg/dL 0.2-1.3 GFR Non- 57 ml/min/1.73m^ Low >=60 GFR >60 ml/min/1.73m^ >=60 Lipid Profile 04/15/2019 Mehdi Harris([facility]ma) Cholesterol 146 mg/dL 120- 200 Triglycerides 105 mg/dL 30-200 HDL Cholesterol 51 mg/dL 30-85 LDL (Calculated) 74 CALC 0-129 VLDL Cholesterol 21 mg/dL 0-50 HDL Risk Factor 2.9 CALC 0.0-4.4 Urinalysis Profile 04/14/2019 [facility] Urine Color Yellow Urine Appearance Clear Urine Specific [place] 1.026 Normal 1.010-1.030 Urine pH 5.0 Normal [...] Cell Present Abnormal Absent Urine Culture And Sensitivities 04/14/2019 [facility] Urine Culture SEE RESULT BELOW 12 1 [id number] 2 SEE RESULT BELOW Name: SRINI JEFFRIES : [address]: Steve Banuelos MD Acct: [id number] Unit: [id number] AGE: 79 Location: [facility] Re07/08/19 SEX: F Status: REG REF SPEC: [id number] MARIA M: 07/08/19-[address] [facility] [address]: Steve Banuelos MD REQ: [id number] RECD: 07/08/19 STATUS: COMP [facility] DR: Virgilio Zuleta MD _ SOURCE: URINE [facility]: ORDERED: Urine Culture COMMENTS: [id number] QUERIES: Urine Source: Random Procedure Result Reported Site Urine Culture Final 07/09/19- 1323 ML No Growth (<1,000 CFU/mL) * ML - Main Lab . END OF REPORT DEPARTMENT OF PATHOLOGY, [address] [place] [address] Crow Fraser M.D. Director [facility] # [id number] 3 Troponin-I testing on Plasma Separator Tubes (PST) has a known false positive rate of 0.20-0.40%. All positive troponins reflex immediately to secondary confirmatory testing. Using the [employer] 800 Access Immunoassay systems, the 99th percentile upper reference limit was demonstrated to be < 0.03 ng/mL. 4 Troponin-I testing on Plasma Separator Tubes (PST) has a known false positive rate of 0.20-0.40%. All positive troponins reflex immediately to secondary confirmatory testing. Using the [employer] 800 Access Immunoassay systems, the 99th percentile upper reference limit was demonstrated to be < 0.03 ng/mL. 5 Because ethnic data is not always readily [...] 15-29 5 Kidney failure <15 (or dialysis) 6 1 gold top sst tube sent 1 charles urine transport tube sent [id number] 1 gold top sst tube sent 1 charles urine transport tube sent [id number] SEE RESULT BELOW Name: SRINI JEFFRIES : [address]: Virgilio Zuleta MD Acct: [id number] Unit: [id number] AGE: 79 Location: [facility] Re06/14/19 SEX: F Status: REG REF SPEC: [id number] MARIA M: 06/14/19-[address] [facility] [address]: Virgilio Zuleta MD REQ: [id number] RECD: 06/14/19 STATUS: COMP _ SOURCE: URINE SPDESC: ORDERED: Urine Culture COMMENTS: 1 gold top sst tube sent 1 charles urine transport tube sent [id number] Urine Source: Random Procedure Result Reported Site Urine Culture Final 06/15/19- 1607 ML No growth of clinically significant organisms * ML - Main Lab . END OF REPORT DEPARTMENT OF PATHOLOGY, [address] [place] [address] Crow Fraser M.D. Director [facility] # [id number] 9 consistent w/ previous results 10 NON-FASTING 11 consistent w/ previous results 12 SEE RESULT BELOW Name: SRINI JEFFRIES : [address]: Virgilio Zuleta MD Acct: [id number] Unit: [id number] AGE: 78 Location: [facility] Re04/14/19 SEX: F Status: REG REF SPEC: [id number] MARIA M: 04/14/19-[address]: Virgilio Zuleta MD REQ: [id number] RECD: 04/14/19 STATUS: COMP _ SOURCE: URINE SPDESC: ORDERED: Urine Culture Urine Source: Random Procedure Result Reported Site Urine Culture Final 04/15/19- 1203 ML No Growth (<1,000 CFU/mL) * ML - Main Lab . END OF REPORT DEPARTMENT OF PATHOLOGY, [address] [place] [address] Crow Fraser M.D. Director [facility] # [id number] Procedures Date Code Description Status 07/02/2019 [id number] Mammogram Completed 10/20/2018 100013971 Diabetic Retinal Eye Exam Completed 05/29/2018 [id number] Mammogram Completed 03/20/2017 [id number] Mammogram Completed 01/19/2016 77331830 Mammogram Completed 01/04/2015 77442816 Mammogram Completed 12/20/2013 61462669 Mammogram Completed 10/01/2012 34702124 Mammogram Completed 08/06/2011 [id number] Mammogram Completed 07/31/2010 [id number] Mammogram Completed 06/28/2009 49297552 Mammogram Completed 12/28/2008 12297517 Colonoscopy Completed 01/26/2008 03635331 Mammogram Completed 01/07/2007 54572333 Mammogram Completed Medical Devices Description No Information Available Encounters Type Date Location Provider Dx Diagnosis Office Visit 07/01/2019 10:20a Main Office Virgilio Zuleta M.D. M54.5 Low back pain I25.10 Athscl heart disease of [place] coronary artery w/o ang pctrs E11.9 Type 2 diabetes mellitus without complications F03.90 Unspecified dementia without behavioral disturbance Office Visit 06/14/2019 11:10a [facility] Virgilio Zuleta M54.5 Low back pain MYamel E11.9 Type 2 diabetes mellitus without complications I25.10 Athscl heart disease of [place]wi[place]apaayp coronary artery w/o ang pctrs F03.90 Unspecified dementia without behavioral disturbance Office Visit 04/30/2019 2:50p Main Office Lg Levy W01.198D Fall same lev MD Clay from slip/trip w strike agnst oth object, subs S00.03xD Contusion of scalp, subsequent encounter M54.5 Low back pain M15.0 Primary generalized (osteo)arthritis Office Visit 04/15/2019 2:40p Main Office Virgilio Harris E11.9 Type 2 diabetes Nadya Zuleta mellitus without complications M54.5 Low back pain I25.10 Athscl heart disease of [place]wi[place]apaayp coronary artery w/o [facility] pctrs Assessments Date Code Description Provider 08/17/2019 I25.10 Atherosclerotic heart disease of ewiiaapaayp Virgilio Zuleta M.D. coronary artery with 08/17/2019 E11.9 Type 2 diabetes mellitus without Virgilio Zuleta M.D. complications 08/17/2019 F03.90 Unspecified dementia without behavioral Virgilio Zuleta M.D. disturbance 08/17/2019 M54.5 Low back pain Virgilio Zuleta M.D. 08/17/2019 M25.551 Pain in right hip Virgilio Zuleta M.D. 07/01/2019 M54.5 Low back pain Virgilio Zuleta M.D. 07/01/2019 I25.10 Atherosclerotic heart disease of [place]ay[place] Virgilio Zuleta M.D. coronary artery with 07/01/2019 E11.9 Type 2 diabetes mellitus without Virgilio Zuleta M.D. complications 07/01/2019 F03.90 Unspecified dementia without behavioral Virgilio Zuleta M.D. disturbance 06/14/2019 M54.5 Low back pain Virgilio Zuleta M.D. 06/14/2019 E11.9 Type 2 diabetes mellitus without Virgilio Zuleta M.D. complications 06/14/2019 I25.10 Atherosclerotic heart disease of [place]ay[place] Virgilio Zuleta M.D. coronary artery with 06/14/2019 [...] 04/15/2019 E11.9 Type 2 diabetes mellitus without Virgilio Zuleta M.D. complications 04/15/2019 M54.5 Low back pain Virgilio Zuleta M.D. 04/15/2019 I25.10 Atherosclerotic heart disease of [place]wi[place]apaayp Virgilio Zuleta M.D. coronary artery with Plan of Treatment Future Appointment(s):11/25/2019 11:20 am - Virgilio Zuleta M.D. at Main Jjeoup8508/17/2019 - Virgilio Zuleta M.D.I25.10 Atherosclerotic heart disease of ewiiaapaayp coronary artery withComments:no recent angina, chest pain hospitalization 06/2019 thought to be due to hypertensive urgency, willdiscuss with Dr Bullock11.9 Type 2 diabetes mellitus without complicationsComments: overall controlled on Humalog 5 units before a meal , patient of Dr BanuelosF03.90 Unspecified dementia without behavioral lufleanhjflV10.5 Low back painFollow up: Followup:. (Follow up)M25.551 Pain in right hipComments:I'll discuss her clearence with Dr Moctezuma Functional Status Description No Information Available Mental Status Description No Information Available Referrals Refer to Reason for Referral Status Appt Date Castillo QUIÑONES, Alma right hip pain jw Scheduled 07/26/2019 [facility] [address], [place] [address] [phone] [facility] Dementia Hallucinations jw Sent [address] [place] [address] [place] [address] [phone] [facility] CONSULT Scheduled 05/26/[address] [place] [id number] [phone] [facility] OCCUPATIONAL THERAPY Sent [address] [place] [address] [phone]
--- OUTSIDE RECORDS SUMMARY | 2019-09-22 19:31 | XMS REPORT | Continuity of Care Document ---
:1940 External Reference #:[id number] Author Name Alisha Hernández NP (transmitted by agent of provider Izabel Donaldson) Address [address] [place] [id number] Care Team Providers Name Role Phone Virgilio Zuleta MD - Family Medicine Care Team Information [place] House Operator [phone] Jeremias Rojo MD - Orthopaedic Care Team Information [place] [employer] Surgery Steve Banuelos MD - Endocrinology, Care Team Information [place] [employer] Diabetes & Metabolism Problems Active Problems Provider [...] M.D. Onset: 08/07/2015 Atherosclerotic heart disease of [place] Nadine Moctezuma M.D. Onset: 08/07/2015 coronary artery [...] Former Cigarette Smoker Unknown Smoking Status Reviewed: 08/03/19 Former Cigarette Smoker ETOH Use Denies alcohol [...] Rodriguez, 12/09/2018 ER (SR) by mouth every SPIRAL MACHINE OPERATOR 200mg Tablets ER 12HR day Nasonex 2 sprays ramonita 17gm J30.9 Wilberofierika Rodriguez, 12/05/2017 50mcg/Act Suspension each side twice SPIRAL MACHINE OPERATOR daily Diclofenac Sodium apply 15 drops 150units M25.569 Wilberofierika Rodriguez, 2016 1.5% Solution to knees 2x SPIRAL MACHINE OPERATOR daily Prevident 5000 Dry Mouth use daily in 100ml M35.00 Zsofia Michael, 2016 1.1% the evenings SPIRAL MACHINE OPERATOR Gel (pt is not using regularly) Isosorbide [...] Clemencia Rodriguez, 11/28/2015 Sulfate by mouth daily SPIRAL MACHINE OPERATOR 200mg Tablets Z79.899 Gabapentin Take 3 Tablets By 90tabs E11.40 Kimberli Watters, 06/16/2014 600mg Tablets Mouth Every Day as M.DSuzi Directed Aranesp (Albumin Free) sc q4 weeks (pt 1units Ad Alberts, 2013 not using) Nadya, [facility], FASNC 60mcg/ML Solution Oxycontin one by [...] Losartan Potassium Take 1 Tablet By Unknown 50mg Mouth Every Day Tablets Refresh Tears 1 [...] Inj, Regadenoson, 0.1 MG Jj Yarbrough DO [facility] 12/29/2018 Injection Technetium TC 99M Jj Yarbrough, DO [facility] 12/29/2018 Tetrofosmin, Per Unit Dose Up [...] Given 07/28/2015 Fluvirin Im 3Yrs And Older 71049 Given 08/13/2014 Influenza Virus 3Yrs & Over 14161 Given 08/30/2012 Pneumonia Vaccine Vital Signs Date Vital Result Comment 08/03/2019 12:58pm Height 61.75 inches 5'1.75" Weight 207.00 lb with shoes Heart Rate 68 /min BP Systolic Sitting 130 mmHg lue large cuff BP Diastolic Sitting 64 mmHg lue large cuff BP Systolic Standing 132 mmHg lue large cuff BP Diastolic Standing 68 mmHg lue large cuff Respiratory Rate 14 /min BMI (Body Mass Index) 38.2 kg/m2 Ejection Fraction 55-60% echo. 01/12/19 07/26/2019 10:07am Height 61.75 inches 5'1.75" Weight 208.00 lb Heart Rate 68 /min BP Systolic 142 mmHg BP Diastolic 82 mmHg Body Temperature 96.6 F Pain Level 8 BMI (Body Mass Index) 38.3 kg/m2 Results Description No Information Available Procedures Date Code Description Status 08/03/2019 66159 EKG Tracing & Interpretation Completed 06/27/2019 53575 ECHO Transthorasic Realtime 2D W Doppler & Color Flow Completed Hosp 11/14/2014 [id number] Diabetic Retinal Eye Exam Completed 12/28/2008 [id number] Colonoscopy Completed Medical Devices Description No Information Available Encounters Type Date Location Provider Dx Diagnosis Office Visit 06/27/2019 [facility] Ngozi Thurman, R07.9 Chest pain, 9:40a Assoc,pc PA-C unspecified Hospitalists I16.0 Hypertensive urgency I50.30 Unspecified diastolic (congestive) heart failure M35.00 Sicca syndrome, unspecified E11.9 Type 2 diabetes mellitus without complications G47.33 Obstructive sleep apnea (adult) (pediatric) N18.3 Chronic kidney disease, stage 3 (moderate) N17.9 Acute kidney failure, unspecified D64.9 Anemia, unspecified J30.2 Other seasonal allergic rhinitis Office Visit 06/25/2019 [facility] Monica Herve, R07.9 Chest pain, 9:38a Assoc,clau [place] unspecified Hospitalists M35.00 Sicca syndrome, unspecified E11.9 Type 2 diabetes mellitus without complications E78.5 Hyperlipidemia, unspecified N18.3 Chronic kidney disease, stage 3 (moderate) K29.60 Other gastritis without bleeding I10 Essential (primary) hypertension Assessments Date Code Description Provider 08/03/2019 I10 Essential (primary) hypertension Alisha Hernández NP 08/03/2019 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 07/26/2019 M25.552 Pain in left hip Alma Chong M.D. 07/26/2019 M16.11 Unilateral primary osteoarthritisAlma M.D. right hip 07/26/2019 M16.12 Unilateral primary osteoarthritisAlma M.D. left hip 07/26/2019 E66.01 Morbid (severe) obesity due to Alma Chong M.D. excess calories 07/26/2019 M62.81 Muscle weakness (generalized) Alma Chong M.D. 06/27/2019 R07.9 Chest pain, unspecified Ngozi O'blane, PA-C 06/27/2019 R07.9 Chest pain, unspecified Ad Alberts M.D., [facility], [facility] 06/27/2019 I16.0 Hypertensive urgency Ngozi O'blane, PA-C [...] N.P. 06/25/2019 R07.9 Chest pain, unspecified Monica Herve, M.D. 06/25/2019 M35.00 Sicca syndrome, unspecified Monica Edgar M.D. 06/25/2019 E11.9 Type 2 diabetes mellitus without Monica Edgar M.D. complications 06/25/2019 E78.5 Hyperlipidemia, unspecified Monica Edgar M.D. 06/25/2019 N18.3 Chronic kidney disease, stage 3 Monica Edgar M.D. (moderate) 06/25/2019 K29.60 Other gastritis without bleeding Monica Edgar M.D. 06/25/2019 I10 Essential (primary) hypertension Monica Edgar M.D. Plan of Treatment Future Appointment(s):08/27/2019 9:30 am - Alma Chong M.D. at [facility]09/02/2019 1:30 pm - Alma Chong M.D. at [facility]08/12/2019 10:00 am - Galileo Monk N.P. at [facility]08/03/2019 - Alisha Hernández, [id number] Essential (primary) jbjgovffcrveJ37.10 Atherosclerotic heart disease of [place] coronary artery without angina pectorisFollow up:in [address] Moctezuma.E78.5 Hyperlipidemia, kybbwvujvcrE24.810 Encounter for preprocedural cardiovascular examination Functional Status Description No Information Available Mental Status Description No Information Available Referrals Description No Information Available
--- OUTSIDE RECORDS SUMMARY | 2019-09-22 19:31 | XMS REPORT | Continuity of Care Document ---
:1940 External Reference #:[id number] Author Name Alma Chong M.D. (transmitted by agent of provider Sergio Grady) Address [address] [place] [id number] Care Team Providers Name Role Phone Virgilio Zuleta MD - Family Medicine Care Team Information Dry Chain Operator [phone] Jeremias Rojo MD - Orthopaedic Care Team Information Dry Chain Operator [phone] Surgery Problems Active Problems Provider Date Coronary arteriosclerosis [...] M.D. Onset: 08/07/2015 Atherosclerotic heart disease of [place] Nadine Moctezuma M.D. Onset: 08/07/2015 coronary [...] Onset: 01/28/2019 Localized, primary osteoarthritis of the [place]n Chong M.D. Onset: 07/26/2019 pelvic region and thigh Social History Type Date Description Comments Sex Unknown Tobacco Use Start: Unknown End: Former Cigarette Smoker Unknown Smoking Status Reviewed: 08/27/19 Former Cigarette Smoker ETOH Use Denies alcohol [...] Qnty Indications Ordering Date Provider Bupropion Hydrochloride ER take 1 tablet 30tabs Wilberofia Michael, 12/09/2018 (SR) by mouth MEDIUM CYCLE SALESPERSON 200mg Tablets ER 12HR every day Isosorbide Mononitrate ER 1 by mouth 90tabs Virgilio Zuleta, 11/24/2016 30mg every day MD Tablets ER 24HR Ranitidine HCL 1 table po Virgilio Zuleta, 11/20/2016 300mg daily MD Automatic Blood Pressure 1 kit large R07.9 Nadine Moctezuma, 02/16/2016 Monitor cuff Nadya Kit Aspirin Low Strength 1 tablet po Unknown 02/03/2016 81mg daily Chewtabs Ranexa 1 by mouth 180tabs Nadine Glynn, 01/30/2016 500mg Tablets ER 12HR twice a day Nadya Wrist Immobulization right hand 1units Kimberli James 12/19/2015 Splint dx: g56.01 Nadya Watters Hydroxychloroquine Sulfate take one 90tabs M35.00 Zsofia Michael, 2015 200mg tablet by MEDIUM CYCLE SALESPERSON Tablets mouth daily Z79.899 Gabapentin Take 3 Tablets By 90tabs E11.40 Kimberli James 06/16/2014 600mg Mouth Every Day as Nadya Watters Tablets Directed Advair HFA Inhale 2 Puffs By Unknown Mouth Two Times Daily 115-21mcg/Act Aerosol Via Aerochamber, Rinse Mouth After Use Travatan Z Instill 1 Drop In The Unknown 0.004% Left Eye Once Every Solution Night Before Bedtime Novolog Flexpen Unknown Oxycontin one by mouth every 8 Unknown 10mg Tab ER hours for pain 12H Abuse-Det Lantus Solostar inject 12 units Unknown subcutaneously at 100Unit/ML Solution bedtime Pen-Inject Dorzolamide 1 drop both eyes Unknown HCL/Timolol Maleate twice a day 22.3-6.8mg/ml Solution Qnasl two sprays each Unknown 80mcg/Act Aerosol nostril once daily. HM Salonpas Pain apply 1 patch every Unknown Relief 12 hours. 1.2-5.7-6.3% Patches Methocarbamol take 1 every 6 hours Unknown 500mg as needed Tablets Acetaminophen 2 every 4 hours as Unknown 325mg needed for pain Tablets Glucose take as needed for Unknown 4gm Chewtabs low blood sugar Tylenol 8 Hour 1 by mouth every 8 Unknown Arthritis Pain hours prn 650mg Tablets ER Loratadine Take 1 Tablet By Unknown 10mg Tablets Mouth Every Day as needed for allergy symptoms Metoprolol Succinate Take 1 Tablet By Unknown ER Mouth Every Day 25mg Tablets ER 24HR Losartan Potassium Take 1 Tablet By Unknown 50mg Mouth Every Day Tablets Betaxalol 1 gtt in left eye Unknown 0.5% Solution daily Diabetic Neuropathy Apply to both feet Unknown Cream (OTC) bid Cream Albuterol Sulfate 1 vial via nebulizer 100units Unknown 4 times daily as (2.5mg/3ML) 0.083% needed Nebulizer Proair HFA inhale 2 puffs q 2-4h Unknown 108(90Base) prn mcg/Act Aerosol Cpap for use nightly for Unknown Device sleep apnea Nitrostat one sl q5min up to 3 25tabs Unknown 0.4mg Tablets doses as needed Sub Hydrocodone-Acetamino 1 po Am,1 po PM prn Unknown phen 10-325 Trazodone HCL 1 tablet at bedtime 30tabs Unknown 50mg Tablets Fluticasone 2 sprays each nostril 16units Unknown Propionate daily( used seasonal 50mcg/Act fall, winter, spring) Suspension as needed Atorvastatin Calcium take 1 tablet daily 90tabs Unknown 20mg Tablets Medications Administered in Office Medication SIG Qnty Indications Ordering Provider Date Inj, Regadenoson, 0.1 MG Jj Yarbrough, DO [facility] 12/29/2018 Injection Technetium TC 99M Jj Yarbrough, DO [facility] 12/29/2018 Tetrofosmin, Per Unit Dose Up To [...] M.D., 05/09/2014 Tetrofosmin, Per Unit Dose Up FACC FASJANENE To 40 Millicuries Injection Immunizations CPT Code Status Date Vaccine Lot # [id number] Given 07/28/2015 Fluvirin Im 3Yrs And Older 12630 Given 08/13/2014 Influenza Virus 3Yrs & Over 74181 Given 08/30/2012 Pneumonia Vaccine Vital Signs Date Vital Result Comment 08/27/2019 10:10am Height 61.75 inches 5'1.75" Weight 208.00 lb Heart Rate 66 /min Respiratory Rate 18 /min Body Temperature 97.4 F Pain Level 4 BMI (Body Mass Index) 38.3 kg/m2 08/12/2019 10:12am Height 61.75 inches 5'1.75" Weight 208.00 lb Heart Rate 68 /min BP Systolic 138 mmHg BP Diastolic 82 mmHg BMI (Body Mass Index) 38.3 kg/m2 Results Test Acquired Date Facility Test Result H/L Range Note CBC W/Auto 08/17/2019 [facility] White Blood 6.9 10^3/uL Normal 3.5-10.[address] [place] [address] [phone] Red Blood Count 3.86 10^6/uL Normal 3.70-4.87 Hemoglobin 11.8 g/dL Low 12.0-16.0 Hematocrit 36 % Normal 35-47 Mean Corpuscular Volume 94 fL Normal 80-97 Mean Corpuscular Hemoglobin 31 pg Normal 27-31 Mean Corpuscular HGB Conc 32 g/dL Normal 31-36 Red Cell Distribution Width 16 % High 10-15 Platelet Count 149 10^3/uL Low 150-450 Mean Platelet Volume 11.2 fL High 7.4-10.4 Abs Neutrophils 4.6 10^3/uL Normal 1.5-7.7 Abs Lymphocytes 1.2 10^3/uL Normal 1.0-4.8 Abs Monocytes 0.8 10^3/uL Normal 0-0.8 Abs Eosinophils 0.2 10^3/uL Normal 0-0.6 Abs Basophils 0.1 10^3/uL Normal 0-0.2 Abs Nucleated RBC 0.0 10^3/uL Granulocyte % 67.3 % Lymphocyte % 17.7 % Monocyte % 11.3 % Eosinophil % 2.8 % Basophil % 0.9 % Nucleated Red Blood Cells % 0.1 Laboratory 08/17/2019 [facility] Methylmalonic 0.23 <=0.40 2 test finding [address] Acid Mma nmol/[place] [address] [phone] Lipid Panel - 08/10/2019 [facility] Creatine 78 U/L Normal 10- 223 3, JFM [address] Kinase(CK) 4 [place] [address] [phone] Comp 08/10/2019 [facility] Sodium 140 mmol/L Normal 135-[address] [place] [address] [phone] Potassium 5.0 mmol/L Normal 3.5-5.0 Chloride 111 mmol/L Normal 101-111 Co2 Carbon Dioxide 23 mmol/L Normal 22-32 Anion Gap 6 mmol/L Normal 2-11 Glucose 174 mg/dL High 70-100 Blood Urea Nitrogen 30 mg/dL High 6-24 Creatinine 1.30 mg/dL High 0.51-0.95 BUN/Creatinine Ratio 23.1 High 8-20 Calcium 9.2 mg/dL Normal 8.6-10.3 Total Protein 6.1 g/dL Low 6.4-8.9 Albumin 3.8 g/dL Normal 3.2-5.2 Globulin 2.3 g/dL Normal 2-4 Albumin/Globulin Ratio 1.7 Normal 1-3 Total Bilirubin 0.30 mg/dL Normal 0.2-1.0 Alkaline Phosphatase 91 U/L Normal 34-104 Alt 7 U/L Normal 7-52 Ast 11 U/L Low 13-39 Egfr Non- 39.6 >60 Egfr 47.9 >60 5 Lipid Profile 08/10/2019 [facility] Triglycerides 50 mg/dL 6 (Trig/Chol/HDL) [address] [place] [address] [phone] Cholesterol 159 mg/dL 7 HDL Cholesterol 53.1 mg/dL 8 LDL Cholesterol 96 mg/dL 9 1 [id number] 2 ADDITIONAL INFORMATION This test was developed and its performance characteristics determined by [facility] in a manner consistent with CLIA requirements. This test has not been cleared or approved by the U.S. Food and Drug Administration. Test Performed by: [place] [address] Commercial Maintenance Technician: Luis Mejia M.D. Ph.D.; CLIA# [id number] 3 [id number] 5 Because ethnic data is not always [...] 5 Kidney failure <15 (or dialysis) 6 Desirable: <150 Borderline High: 150-199 High: 200-499 Very High: >500 7 Desirable: <200 Borderline High: 200-239 High: >239 8 Low: <40 Desirable: 40-60 High: >60 9 Desirable: <100 Near Optimal: 100-129 Borderline High: 130-159 High: 160-189 Very High: >189 Procedures Date Code Description Status 08/03/2019 67878 EKG Tracing & Interpretation Completed 06/27/2019 77946 ECHO Transthorasic Realtime 2D W Doppler & Color Flow Completed Hosp 11/14/2014 [id number] Diabetic Retinal Eye Exam Completed 12/28/2008 [id number] Colonoscopy Completed Medical Devices Description No Information Available Encounters Type Date Location Provider Dx Diagnosis Office Visit 08/03/2019 [facility] Alisha Edgar, I10 Essential ( primary) 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 hip M25.552 Pain in left hip M16.11 Unilateral primary osteoarthritis, right hip M16.12 Unilateral primary osteoarthritis, left hip Z68.38 Body mass index (BMI) 38.0-38.9, adult E66.01 Morbid (severe) obesity due to excess calories M62.81 Muscle weakness (generalized) Office Visit 06/27/2019 9:40a [facility] Ngozi R07.9 Chest pain, Assoc,pc [place], PA-C unspecified Hospitalists I16.0 Hypertensive urgency I50.30 Unspecified diastolic (congestive) heart failure M35.00 Sicca syndrome, unspecified E11.9 Type 2 diabetes mellitus without complications G47.33 Obstructive sleep apnea (adult) (pediatric) N18.3 Chronic kidney disease, stage 3 (moderate) N17.9 Acute kidney failure, unspecified D64.9 Anemia, unspecified J30.2 Other seasonal allergic rhinitis Office Visit 06/25/2019 [facility] Monica Edgar R07.9 Chest pain, 9:38a Assoc,clau [place] unspecified Hospitalists M35.00 Sicca syndrome, unspecified E11.9 Type 2 diabetes mellitus without complications E78.5 Hyperlipidemia, unspecified N18.3 Chronic kidney disease, stage 3 (moderate) K29.60 Other gastritis without bleeding I10 Essential (primary) hypertension Assessments Date Code Description Provider 08/12/2019 R44.3 Hallucinations, unspecified Galileo Monk, N.P. 08/12/2019 F03.90 Unspecified dementia without Galileo Monk, N.P. behavioral disturbance 08/12/2019 I10 Essential (primary) hypertension Galileo Monk, N.P. 08/12/2019 E78.5 Hyperlipidemia, unspecified Galileo Monk, N.P. 08/03/2019 R94.31 Abnormal electrocardiogram [ECG] Nadine Moctezuma M.D. 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 07/26/2019 M25.552 Pain in left hip Alma Chong M.D. 07/26/2019 M16.11 Unilateral primary osteoarthritis, Alma Chong M.D. right hip 07/26/2019 M16.12 Unilateral primary osteoarthritis, Alma Chong M.D. left hip 07/26/2019 Z68.38 Body mass index (BMI) 38.0-38.9, Alma Chong M.D. adult 07/26/2019 E66.01 Morbid (severe) obesity due to excess Alma Chong M.D. calories 07/26/2019 M62.81 Muscle weakness (generalized) Alma Chong M.D. 06/27/2019 R07.9 Chest pain, unspecified Ngozi Thurman PA-C 06/27/2019 R07.9 Chest pain, unspecified Ad Alberts M.D., [facility], [facility] 06/27/2019 I16.0 Hypertensive urgency Ngozi Thurman PA-C 06/27/2019 I50.30 Unspecified diastolic (congestive) Ngozi Arjune, PA-C heart failure 06/27/2019 M35.00 Sicca syndrome, [...] PA-C 06/26/2019 R07.9 Chest pain, unspecified Peggy Spenser, [...] Monica Edgar M.D. Plan of Treatment Future Appointment(s):10/08/2019 11:00 am - Jayme Reese M.D. at [facility] Functional Status Description No Information Available Mental Status Description No Information Available Referrals Description No Information Available
--- OUTSIDE RECORDS SUMMARY | 2019-09-22 19:31 | XMS REPORT | Continuity of Care Document ---
:1940 External Reference #:[id number] Author Name Galileo Monk N.P. (transmitted by agent of provider Aaron Escobedo) Address [address], [place] [address] Care Team Providers Name Role Phone Virgilio Zuleta MD - Family Medicine Care Team Information Exhibit Carpenter [phone] Jeremias Rojo MD - Orthopaedic Care Team Information Exhibit Carpenter Surgery Problems Active Problems Provider Date Coronary [...] M.D. Onset: 08/07/2015 Atherosclerotic heart disease of [place] Nadine Moctezuma M.D. Onset: 08/07/2015 coronary artery [...] Former Cigarette Smoker Unknown Smoking Status Reviewed: 08/12/19 Former Cigarette Smoker ETOH Use Denies alcohol [...] Medications SIG Qnty Indications Ordering Date Provider Tylenol 8 Hour Arthritis 1 by mouth 180tabs Galileo 08/12/2019 Pain twice a day Monk, N.P. 650mg Tablets ER Bupropion Hydrochloride take 1 tablet 30tabs Clemencia Rodriguez, 12/09/2018 ER (SR) by mouth every [employer] 200mg Tablets ER 12HR day Nasonex 2 sprays ramonita 17gm J30.9 Wilberofierika Rodriguez, 12/05/2017 50mcg/Act Suspension each side twice [employer] daily Diclofenac Sodium apply 15 drops 150units M25.569 Zsofia Michael, 2016 1.5% Solution to knees 2x [employer] daily Prevident 5000 Dry Mouth use daily in 100ml M35.00 Zsofia Michael, 2016 1.1% the evenings [employer] Gel (pt is not using regularly) Isosorbide [...] Clemencia Rodriguez, 11/28/2015 Sulfate by mouth daily [employer] 200mg Tablets Z79.899 Gabapentin Take 3 Tablets By 90tabs E11.40 Kimberli James 06/16/2014 600mg Mouth Every Day as aNdya Watters Tablets Directed Aranesp (Albumin sc q4 weeks (pt not 1units Ad Kahn 05/09/2014 Free) using) Nadya Alberts, 60mcg/ML Solution FACC, FASNC Glucose take as needed for Unknown 4gm Chewtabs low blood sugar Acetaminophen 2 every 4 hours as Unknown 325mg needed for pain Tablets Methocarbamol take 1 every 6 hours Unknown 500mg as needed Tablets HM Salonpas Pain apply 1 patch every Unknown Relief 12 hours. 1.2-5.7-6.3% Patches Qnasl two sprays each Unknown 80mcg/Act Aerosol nostril once daily. Dorzolamide 1 drop both eyes Unknown HCL/Timolol Maleate twice a day 22.3-6.8mg/ml Solution Lantus Solostar inject 12 units Unknown subcutaneously at 100Unit/ML Solution bedtime Pen-Inject Oxycontin one by mouth every 8 Unknown 10mg Tab ER hours for pain 12H Abuse-Det Novolog Flexpen Unknown Travatan Z Instill 1 Drop In The Unknown 0.004% Left Eye Once Every Solution Night Before Bedtime Advair HFA Inhale 2 Puffs By Unknown Mouth Two Times Daily 115-21mcg/Act Aerosol Via Aerochamber, Rinse Mouth After Use Loratadine Take 1 Tablet By Unknown 10mg Tablets Mouth Every Day as needed for allergy symptoms Metoprolol Succinate Take 1 Tablet By Unknown ER Mouth Every Day 25mg Tablets ER 24HR Losartan Potassium Take 1 Tablet By Unknown 50mg Mouth Every Day Tablets Betaxalol 1 gtt in left eye Unknown 0.5% Solution daily Fiber Select Gummies 2 chewtabs by mouth 120units Unknown daily Chewtabs Diabetic Neuropathy Apply to both feet Unknown Cream (OTC) bid Cream Miralax 17 gm every day mixed 238gm Unknown 3350NF Powder w/ 8 oz water/juice daily as needed Albuterol Sulfate 1 vial via nebulizer 100units [...] Inj, Regadenoson, 0.1 MG Jj Yarbrough, DO FACC 12/29/2018 Injection Technetium TC 99M Jj Yarbrough, DO FACC 12/29/2018 Tetrofosmin, Per Unit Dose Up To [...] 0.1 MG Ad Alberts M.D., 08/15/2015 Injection FACCARABELLA Technetium TC 99M Ad Alberts M.D., 08/15/2015 Tetrofosmin, Per Unit Dose Up ARABELLA BUCHANAN To 40 Millicuries Injection Technetium TC 99M Nadine Moctezuma M.D. 08/15/2015 Tetrofosmin, Per Unit Dose Up To 40 Millicuries Injection Triamcinolone (Kenalog) Adrian Salgado M.D. 09/28/2014 Injection Inj, Regadenoson, 0.1 MG Ad Alberts M.D., 05/09/2014 Injection FACC, FASNC Aminophylline Ad Alberts M.D., 05/09/2014 Injection FACC, ARABELLA Technetium TC 99M Ad Alberts M.D., 05/09/2014 Tetrofosmin, Per Unit Dose Up ARABELLA BUCHANAN To 40 Millicuries Injection Immunizations CPT Code Status Date Vaccine Lot # [id number] Given 07/28/2015 Fluvirin Im 3Yrs And Older [id number] Given 08/13/2014 Influenza Virus 3Yrs & Over [id number] Given 08/30/2012 Pneumonia Vaccine Vital Signs Date Vital Result Comment 08/12/2019 10:12am Height 61.75 inches 5'1.75" Weight 208.00 lb Heart Rate 68 /min BP Systolic 138 mmHg BP Diastolic 82 mmHg BMI (Body Mass Index) 38.3 kg/m2 08/03/2019 12:58pm Height 61.75 inches 5'1.75" Weight 207.00 lb with shoes Heart Rate 68 /min BP Systolic Sitting 130 mmHg lue large cuff BP Diastolic Sitting 64 mmHg lue large cuff BP Systolic Standing 132 mmHg lue large cuff BP Diastolic Standing 68 mmHg lue large cuff Respiratory Rate 14 /min BMI (Body Mass Index) 38.2 kg/m2 Ejection Fraction 55-60% echo. 01/12/19 Results Test Date Facility Test Result H/L Range Note Lipid Panel - 08/10/2019 [facility] Creatine 78 U/L Normal 10- 223 1, [address] Kinase(CK) [place] [address] [phone] Comp Metabolic 08/10/2019 [facility] Sodium 140 mmol/L Normal 135-[address] [place] [address] [phone] Potassium 5.0 mmol/L Normal 3.5-5.0 Chloride 111 [...] Egfr Non- 39.6 >60 Egfr 47.9 >60 3 Lipid Profile 08/10/2019 [facility] Triglycerides 50 mg/dL 4 (Trig/Chol/HDL) [address] [place] [address] [phone] Cholesterol 159 mg/dL 5 HDL Cholesterol 53.1 mg/dL 6 LDL Cholesterol 96 mg/dL 7 1 [id number] 2 [id number] 3 Because ethnic data is not always [...] 5 Kidney failure <15 (or dialysis) 4 Desirable: <150 Borderline High: 150-199 High: 200-499 Very High: >500 5 Desirable: <200 Borderline High: 200-239 High: >239 6 Low: <40 Desirable: 40-60 High: >60 7 Desirable: <100 Near Optimal: 100-129 Borderline High: 130-159 High: 160-189 Very High: >189 Procedures Date Code Description Status 08/03/2019 87274 EKG Tracing & Interpretation Completed 06/27/2019 24220 ECHO Transthorasic Realtime 2D W Doppler & Color Flow Completed Hosp 11/14/2014 [id number] Diabetic Retinal Eye Exam Completed 12/28/2008 [id number] Colonoscopy Completed Medical Devices Description No Information Available Encounters Type Date Location Provider Dx Diagnosis Office Visit 08/03/2019 [facility] Alisha Edgar, I10 Essential ( primary) 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 I25.10 Athscl heart disease of [place] coronary artery w/o ang pctrs E78.5 Hyperlipidemia, unspecified Z01.810 Encounter for preprocedural cardiovascular examination Office Visit 06/27/2019 9:40a [facility] Ngozi R07.9 Chest pain, Assoc,pc Teto'ULCIEN arguelles-C unspecified Hospitalists I16.0 Hypertensive urgency I50.30 Unspecified diastolic (congestive) heart failure M35.00 Sicca syndrome, unspecified E11.9 Type 2 diabetes mellitus without complications G47.33 Obstructive sleep apnea (adult) (pediatric) N18.3 Chronic kidney disease, stage 3 (moderate) N17.9 Acute kidney failure, unspecified D64.9 Anemia, unspecified J30.2 Other seasonal allergic rhinitis [facility].9 Chest pain, 9:38a Assoc,clau [place] unspecified Hospitalists M35.00 Sicca syndrome, unspecified E11.9 Type 2 diabetes mellitus without complications E78.5 Hyperlipidemia, unspecified N18.3 Chronic kidney disease, stage 3 (moderate) K29.60 Other gastritis without bleeding I10 Essential (primary) hypertension Assessments Date Code Description Provider 08/12/2019 R44.3 Hallucinations, unspecified Galileomayra Monk, N.P. 08/12/2019 F03.90 Unspecified dementia without Galileo Monk, N.P. behavioral disturbance 08/12/2019 I10 Essential (primary) hypertension Galileo Monk, N.P. 08/12/2019 E78.5 Hyperlipidemia, unspecified Galileo Monk, N.P. 08/03/2019 R94.31 Abnormal electrocardiogram [ECG] Nadine Moctezuma M.D. 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 Plan of Treatment Future Appointment(s):10/05/2019 10:15 am - Jayme Reese M.D. at [facility]08/27/2019 9:30 am - Alma Chong M.D. at [facility]09/02/2019 12:30 pm - [facility] - Galileo Monk N.P.R44.3 Hallucinations, wnytrljuzswM42.90 Unspecified dementia without behavioral disturbanceNew Labs: CBC W/Auto Diff, Ordered: 08/12/19CMP Panel, Ordered: 08/12/19Vitamin B12 And Folate Serum, Ordered: 08/12/19Methylmalonic Acid, Ordered: 08/12/19TSH Thyroid Stimulating Horm, Ordered: 08/12/19T4 Free Thyroxine, Ordered: 08/12/19New Xrays :MRI Brain W/O, Ordered: 08/12/19Follow up:2-3 week after your hip surgery ok with Dr ReeseI10 Essential (primary) mwycctrltoxuC20.5 Hyperlipidemia, unspecified Functional Status Description No Information Available Mental Status Description No Information Available Referrals Description No Information Available
[2019-09-22 19:43] LABS: ABS Basophils 0.1 10^3/ul (0-0.2); ABS Eosinophils 0.3 10^3/ul (0-0.6); ABS Lymphocytes 1.5 10^3/ul (1.0-4.8); ABS Monocytes 1.3 10^3/ul (0-0.8); ABS Neutrophils 5.5 10^3/ul (1.5-7.7); Eosinophil % 3.4 %; Hematocrit 35 % (35-47); Hemoglobin 11.4 g/dL (12.0-16.0); Lymphocyte % 17.7 %; Mean Corpuscular HGB Conc 33 g/dL (31-36); Mean Corpuscular Hemoglobin 31 pg (27-31); Mean Corpuscular Volume 95 fL (80-97); Mean Platelet Volume 10.5 fL (7.4-10.4); Platelet Count 164 10^3/uL (150-450); Red Blood Count 3.66 10^6 /uL (3.70-4.87); Red Cell Distribution Width 15 % (10-15); White Blood Count 8.7 10^3/uL (3.5-10.8)
[2019-09-22 20:00] LABS: Albumin 3.6 g/dL (3.2-5.2); Albumin/Globulin Ratio 1.5 (1-3); BUN/Creatinine Ratio 21.5 (8-20); C Reactive Protein 3.24 mg/L (<8.01); Calcium 8.7 mg/dL (8.6-10.3); EGFR African American 42.6 (>60); EGFR Non-African American 35.2 (>60); Globulin 2.4 g/dL (2-4); Potassium 4.4 mmol/L (3.5-5.0); Total Bilirubin 0.2 mg/dL (0.2-1.0)
[2019-09-22 20:02] LABS: Troponin I 0.01 ng/mL (<0.03)
[2019-09-22] MEDS ORDERED: Iodixanol* (CONTRAST) 320 MG/ML 100 ML SDV IV ONE (22:07)
[2019-09-22] MEDS ORDERED: Acetaminophen TAB* 325 MG PO ONE (23:00)
[2019-09-22 23:28] VITALS: BP 150/63
== END 2019-09-22 23:26 | disposition home or self-care (01) ==
LOC: ED 18:23
DX: R07.89 Other chest pain (principal); E11.9 Type 2 diabetes mellitus without complications; Z87.891 Personal history of nicotine dependence; N18.9 Chronic kidney disease, unspecified; K21.9 Gastro-esophageal reflux disease without esophagitis; I10 Essential (primary) hypertension; D64.9 Anemia, unspecified; Z79.01 Long term (current) use of anticoagulants; J45.909 Unspecified asthma, uncomplicated; I73.9 Peripheral vascular disease, unspecified
CPT/HCPCS: 36415; 71111; 71275; 74174; 80053; 84484; 85025; 86140; 93005; 99282; Q9967

== ENCOUNTER 2020-05-12 17:19 | Inpatient (IN) ==
[2020-05-12 19:53] LABS: ABS Basophils 0.1 10^3/ul (0-0.2); ABS Eosinophils 0.2 10^3/ul (0-0.6); ABS Lymphocytes 1.1 10^3/ul (1.0-4.8); ABS Monocytes 1.3 10^3/ul (0-0.8); ABS Neutrophils 9.5 10^3/ul (1.5-7.7); Eosinophil % 1.3 %; Hematocrit 35 % (35-47); Hemoglobin 11.7 g/dL (12.0-16.0); Lymphocyte % 9.2 %; Mean Corpuscular HGB Conc 33 g/dL (31-36); Mean Corpuscular Hemoglobin 31 pg (27-31); Mean Corpuscular Volume 95 fL (80-97); Mean Platelet Volume 11.3 fL (7.4-10.4); Nucleated Red Blood Cells % 0.1; Platelet Count 171 10^3/uL (150-450); Red Blood Count 3.72 10^6 /uL (3.70-4.87); Red Cell Distribution Width 14 % (10-15); White Blood Count 12.2 10^3/uL (3.5-10.8)
[2020-05-12 20:23] LABS: Albumin 3.8 g/dL (3.2-5.2); Albumin/Globulin Ratio 1.3 (1-3); BUN/Creatinine Ratio 21.7 (8-20); C Reactive Protein 5.12 mg/L (<8.01); Calcium 9.1 mg/dL (8.6-10.3); EGFR African American 21.3 (>60); EGFR Non-African American 17.6 (>60); Potassium 4.6 mmol/L (3.5-5.0); Total Bilirubin 0.4 mg/dL (0.2-1.0); Total Protein 6.8 g/dL (6.4-8.9)
[2020-05-12 21:07] LABS: Urine Appearance Cloudy; Urine Bilirubin Negative (Negative); Urine Blood Negative (Negative); Urine Color Amber; Urine Glucose Negative (Negative); Urine Ketones Negative (Negative); Urine Nitrite Negative (Negative); Urine Protein 1+(30 mg/dL) (Negative); Urine Specific Gravity 1.021 (1.010-1.030); Urine Urobilinogen Negative (Negative)
[2020-05-12 21:08] LABS: Urine Bacteria Absent (Absent); Urine Red Blood Cell Trace(0-2/hpf) (Absent); Urine White Blood Cell Trace(0-5/hpf) (Absent)
[2020-05-12] MEDS ORDERED: NS 0.9% 1000 ml BAG 1,000 ML IV ONE (21:42)
[2020-05-12] MEDS ORDERED: Albuterol 2.5mg/3 ml (0.083%) NEB.SOLN INH PRN (23:30)
[2020-05-12] MEDS ORDERED: Dextrose 50% Syringe 50 ml 25 GM/50 ML SYRINGE IV PUSH PRN ×2 (23:30→23:53)
[2020-05-13] MEDS: NS 0.9% 1000 ml BAG 1,000 ML IV SCH ×3 (01:10→22:39)
[2020-05-13] MEDS: Mometasone/Formoter 200/5 MDI INH SCH ×2 (07:33→21:14)
[2020-05-13] MEDS: Heparin 5000 UNITS/ML 1 mL VIAL SUBCUT SCH ×3 (07:49→21:45)
[2020-05-13] MEDS: prednisoLONE 1% OPHTH.SUSP 5 ML OPHTH.SUSP RIGHT EYE SCH ×5 (07:50→21:51)
[2020-05-13] MEDS ORDERED: Ranolazine 500 mg TAB (NF) PO SCH (09:00)
[2020-05-13] MEDS ORDERED: LoraTADine 10 mg TAB (NF) PO SCH (09:00)
[2020-05-13] MEDS ORDERED: Dorzolamide/Timolol OPTH (NF) 10 ML BOT LEFT EYE SCH (09:00)
[2020-05-13] MEDS ORDERED: LIDOCAINE TOPICAL SCH (09:00)
[2020-05-13] MEDS ORDERED: Isosorbide Mononit ER 30mg TAB PO SCH (09:00)
[2020-05-13] MEDS: Aspirin EC 81 mg TAB.EC (enteric coated) PO SCH (09:03)
[2020-05-13] MEDS: buPROPion SR 100 mg TAB.SR PO SCH ×2 (09:03→21:43)
[2020-05-13] MEDS: Lidocaine PATCH 5% PATCH TRANSDERM SCH (09:04)
[2020-05-13] MEDS: CMCS:Dorzolamide/Timolol OPTH (NF) 10 ML BOT LEFT EYE SCH ×2 (09:04→21:39)
[2020-05-13] MEDS: Isosorbide Mononit ER 30mg TAB PO SCH (09:04)
[2020-05-13] MEDS: CMCS:Ranolazine 500 mg TAB (NF) PO SCH ×2 (09:05→21:36)
[2020-05-13] MEDS: Azelastine 0.05% (OPHTH)(NF) 6 ML BTL BOTH EYES SCH ×2 (09:05→21:39)
[2020-05-13 09:25] LABS: ABS Eosinophils 0.2 10^3/ul (0-0.6); ABS Lymphocytes 0.9 10^3/ul (1.0-4.8); ABS Neutrophils 6.9 10^3/ul (1.5-7.7); Eosinophil % 1.7 %; Hematocrit 34 % (35-47); Hemoglobin 11.2 g/dL (12.0-16.0); Lymphocyte % 9.6 %; Mean Corpuscular HGB Conc 34 g/dL (31-36); Mean Corpuscular Hemoglobin 32 pg (27-31); Mean Corpuscular Volume 94 fL (80-97); Mean Platelet Volume 10.5 fL (7.4-10.4); Platelet Count 135 10^3/uL (150-450); Red Blood Count 3.55 10^6 /uL (3.70-4.87); Red Cell Distribution Width 14 % (10-15)
[2020-05-13 09:41] LABS: BUN/Creatinine Ratio 24.8 (8-20); Calcium 8.3 mg/dL (8.6-10.3); EGFR African American 43.6 (>60); EGFR Non-African American 36.1 (>60); Potassium 3.9 mmol/L (3.5-5.0)
[2020-05-13] MEDS: Latanoprost 0.005% 2.5 ml BTL LEFT EYE SCH (17:29)
[2020-05-13] MEDS ORDERED: Latanoprost 0.005% 2.5 ml BTL LEFT EYE SCH (18:00)
[2020-05-13] MEDS: oxyCODONE SR 10 mg TAB PO SCH (21:36)
[2020-05-13] MEDS: Insulin GLARGINE 100 un/ml 10 ml VIAL SUBCUT SCH (21:39)
[2020-05-14] MEDS ORDERED: HYDROcodone/ACETAMIN 5/325 mg TAB PO ONE (04:33)
[2020-05-14] MEDS: prednisoLONE 1% OPHTH.SUSP 5 ML OPHTH.SUSP RIGHT EYE SCH ×5 (05:26→21:22)
[2020-05-14] MEDS: Heparin 5000 UNITS/ML 1 mL VIAL SUBCUT SCH ×3 (05:26→21:23)
[2020-05-14] MEDS: Mometasone/Formoter 200/5 MDI INH SCH ×3 (07:33→20:03)
[2020-05-14] MEDS: oxyCODONE SR 10 mg TAB PO SCH ×2 (08:35→21:21)
[2020-05-14] MEDS: Isosorbide Mononit ER 30mg TAB PO SCH (08:35)
[2020-05-14] MEDS: buPROPion SR 100 mg TAB.SR PO SCH ×2 (08:35→21:21)
[2020-05-14] MEDS: CMCS:Ranolazine 500 mg TAB (NF) PO SCH ×2 (08:35→21:21)
[2020-05-14] MEDS: Aspirin EC 81 mg TAB.EC (enteric coated) PO SCH (08:35)
[2020-05-14] MEDS: NS 0.9% 1000 ml BAG 1,000 ML IV SCH (08:38)
[2020-05-14] MEDS: Azelastine 0.05% (OPHTH)(NF) 6 ML BTL BOTH EYES SCH ×2 (08:39→22:10)
[2020-05-14] MEDS: Lidocaine PATCH 5% PATCH TRANSDERM SCH (08:39)
[2020-05-14] MEDS: CMCS:Dorzolamide/Timolol OPTH (NF) 10 ML BOT LEFT EYE SCH ×2 (08:40→21:23)
[2020-05-14] MEDS: Latanoprost 0.005% 2.5 ml BTL LEFT EYE SCH (17:26)
[2020-05-14] MEDS: Insulin GLARGINE 100 un/ml 10 ml VIAL SUBCUT SCH (21:40)
[2020-05-15] MEDS: Mometasone/Formoter 200/5 MDI INH SCH (07:35)
[2020-05-15] MEDS: prednisoLONE 1% OPHTH.SUSP 5 ML OPHTH.SUSP RIGHT EYE SCH ×6 (07:46→22:13)
[2020-05-15] MEDS: Heparin 5000 UNITS/ML 1 mL VIAL SUBCUT SCH ×3 (07:46→22:06)
[2020-05-15] MEDS: Isosorbide Mononit ER 30mg TAB PO SCH (10:27)
[2020-05-15] MEDS: oxyCODONE SR 10 mg TAB PO SCH ×2 (10:28→20:49)
[2020-05-15] MEDS: buPROPion SR 100 mg TAB.SR PO SCH ×2 (10:28→20:51)
[2020-05-15] MEDS: Aspirin EC 81 mg TAB.EC (enteric coated) PO SCH (10:29)
[2020-05-15] MEDS: CMCS:Ranolazine 500 mg TAB (NF) PO SCH ×2 (10:30→20:49)
[2020-05-15] MEDS: Azelastine 0.05% (OPHTH)(NF) 6 ML BTL BOTH EYES SCH ×2 (10:33→20:59)
[2020-05-15] MEDS: CMCS:Dorzolamide/Timolol OPTH (NF) 10 ML BOT LEFT EYE SCH ×2 (10:33→20:52)
[2020-05-15] MEDS: Lidocaine PATCH 5% PATCH TRANSDERM SCH (10:34)
[2020-05-15] MEDS: Latanoprost 0.005% 2.5 ml BTL LEFT EYE SCH (18:20)
[2020-05-15] MEDS: Insulin GLARGINE 100 un/ml 10 ml VIAL SUBCUT SCH (20:50)
[2020-05-16] MEDS: Heparin 5000 UNITS/ML 1 mL VIAL SUBCUT SCH ×3 (06:08→14:11)
[2020-05-16] MEDS: prednisoLONE 1% OPHTH.SUSP 5 ML OPHTH.SUSP RIGHT EYE SCH ×4 (06:08→14:12)
[2020-05-16] MEDS: Mometasone/Formoter 200/5 MDI INH SCH ×2 (07:45→07:46)
[2020-05-16 08:00] LABS: ABS Eosinophils 0.1 10^3/ul (0-0.6); ABS Lymphocytes 1.2 10^3/ul (1.0-4.8); Eosinophil % 1.8 %; Hematocrit 33 % (35-47); Hemoglobin 11.2 g/dL (12.0-16.0); Lymphocyte % 16.2 %; Mean Corpuscular HGB Conc 33 g/dL (31-36); Mean Corpuscular Hemoglobin 31 pg (27-31); Mean Corpuscular Volume 94 fL (80-97); Mean Platelet Volume 10.7 fL (7.4-10.4); Nucleated Red Blood Cells % 0.1; Platelet Count 139 10^3/uL (150-450); Red Blood Count 3.56 10^6 /uL (3.70-4.87); Red Cell Distribution Width 13 % (10-15); White Blood Count 7.3 10^3/uL (3.5-10.8)
[2020-05-16 08:13] LABS: Calcium 8.1 mg/dL (8.6-10.3); EGFR African American 64.9 (>60); EGFR Non-African American 53.6 (>60); Potassium 3.5 mmol/L (3.5-5.0)
[2020-05-16] MEDS: oxyCODONE SR 10 mg TAB PO SCH (10:37)
[2020-05-16] MEDS: CMCS:Ranolazine 500 mg TAB (NF) PO SCH (10:38)
[2020-05-16] MEDS: buPROPion SR 100 mg TAB.SR PO SCH (10:38)
[2020-05-16] MEDS: Isosorbide Mononit ER 30mg TAB PO SCH (10:39)
[2020-05-16] MEDS: CMCS:Dorzolamide/Timolol OPTH (NF) 10 ML BOT LEFT EYE SCH (10:40)
[2020-05-16] MEDS: Aspirin EC 81 mg TAB.EC (enteric coated) PO SCH (10:41)
[2020-05-16] MEDS: Azelastine 0.05% (OPHTH)(NF) 6 ML BTL BOTH EYES SCH (10:45)
[2020-05-16] MEDS: Lidocaine PATCH 5% PATCH TRANSDERM SCH (10:45)
[2020-05-16 13:45] VITALS: BP 165/65
== END 2020-05-16 14:30 | DRG 92 ==
LOC: MED 17:19 → ED 17:19
PROVIDERS: ADMIT Nurse Practitioner; ATTEND Internal Medicine

== ENCOUNTER 2021-04-11 11:26 | Inpatient (IN) ==
[2021-04-11] MEDS ORDERED: NS 0.9% 1000 ml BAG 1,000 ML IV ONE ×2 (11:39→12:46)
[2021-04-11 12:08] LABS: PCO2 Arterial 37 mmHg (35-45); PO2 Arterial 225 mmHg (80-100)
[2021-04-11 12:20] LABS: ABS Lymphocytes 0.3 10^3/ul (1.0-4.8); ABS Monocytes 0.9 10^3/ul (0-0.8); ABS Neutrophils 11.7 10^3/ul (1.5-7.7); Hematocrit 27 % (35-47); Hemoglobin 8.9 g/dL (12.0-16.0); Lymphocyte % 2.4 %; Mean Corpuscular HGB Conc 33 g/dL (31-36); Mean Corpuscular Hemoglobin 30 pg (27-31); Mean Corpuscular Volume 90 fL (80-97); Mean Platelet Volume 10.4 fL (7.4-10.4); Platelet Count 218 10^3/uL (150-450); Red Cell Distribution Width 14 % (10-15); White Blood Count 12.9 10^3/uL (3.5-10.8)
[2021-04-11 12:35] LABS: Activated Partial Thrombo Time 21.7 seconds (26.0-38.0); INR 1.46 (0.82-1.09)
[2021-04-11 12:41] LABS: ALT 8 U/L (7-52); Albumin 2.9 g/dL (3.2-5.2); Albumin/Globulin Ratio 0.7 (1-3); Alkaline Phosphatase 75 U/L (35-149); Blood Urea Nitrogen 35 mg/dL (6-24); C Reactive Protein 174.98 mg/L (<8.01); CO2 Carbon Dioxide 25 mmol/L (22-32); Chloride 100 mmol/L (101-111); EGFR African American 44.6 (>60); EGFR Non-African American 36.9 (>60); Globulin 4.3 g/dL (2-4); Glucose 345 mg/dL (70-100); Glucose Confirmatory 345 mg/dL (70-100); Magnesium 1.6 mg/dL (1.9-2.7); Sodium 131 mmol/L (135-145); Total Protein 7.2 g/dL (6.4-8.9)
[2021-04-11 12:42] LABS: Troponin I 0.05 ng/mL (<0.03)
[2021-04-11] MEDS ORDERED: Magnesium Sulfate 2 gm BAG 2 GM/50 ML BAG IVPB ONE (12:46)
[2021-04-11] MEDS ORDERED: Piperacillin/Tazobac ADVAN 3.375 GM in NS 0.9% 100 ml BAG 100 ML IV ONE (12:48)
[2021-04-11 12:50] LABS: Anion Gap 6 mmol/L (2-11)
[2021-04-11] MEDS ORDERED: Naloxone 0.4 mg VIAL 0.4 mg/ml 1 ml VIAL IV PUSH ONE (12:55)
[2021-04-11 13:22] LABS: Urine Appearance Clear; Urine Bilirubin Negative (Negative); Urine Blood Negative (Negative); Urine Color Yellow; Urine Glucose 3+(>=500 mg/dL) (Negative); Urine Ketones Negative (Negative); Urine Nitrite Negative (Negative); Urine Protein 1+(30 mg/dL) (Negative); Urine Specific Gravity 1.012 (1.002-1.030); Urine Urobilinogen Negative (Negative)
[2021-04-11 13:35] LABS: Urine Bacteria Absent (Absent); Urine Red Blood Cell Trace(0-2/hpf) (Absent); Urine Squamous Epithelial Cell Present (Absent); Urine White Blood Cell Trace(0-5/hpf) (Absent)
[2021-04-11 13:57] LABS: Potassium Redraw 4.1 mmol/L (3.5-5.0)
[2021-04-11] MEDS ORDERED: Vancomycin 1,000 MG in NS 0.9% 250 ml 250 ML IVPB ONE (14:46)
[2021-04-11] MEDS ORDERED: Dextrose 50% Syringe 50 ml 25 GM/50 ML SYRINGE IV PUSH PRN (14:49)
[2021-04-11] MEDS ORDERED: Vancomycin per Pharmacy 1 EA NOTE FOLLOW UP SCH (15:00)
[2021-04-11] MEDS ORDERED: Lactated Ringers 1000 ml BAG 1,000 ML IV SCH (15:00)
[2021-04-11] MEDS ORDERED: Cefepime 2 GM in Dextrose 2 GM/50 ML BAG IV SCH (16:00)
[2021-04-11] MEDS ORDERED: Vancomycin 1,750 MG in NS 0.9% 500 ml BAG 500 ML IVPB ONE (16:15)
[2021-04-11] MEDS ORDERED: Vancomycin 750 MG in NS 0.9% 250 ML IVPB ONE (17:00)
[2021-04-11] MEDS: Heparin 5000 UNITS/ML 1 mL VIAL SUBCUT SCH ×2 (17:34→20:55)
[2021-04-11] MEDS: Cefepime 2 GM in NS 0.9% 50 ML 50 ML IVPB SCH (18:04)
[2021-04-11 18:16] LABS: TSH Ultra Thyroid Stim Horm 0.56 mcIU/mL (0.34-5.60)
[2021-04-12 01:49] LABS: Troponin I 0.03 ng/mL (<0.03)
[2021-04-12] MEDS: Cefepime 2 GM in NS 0.9% 50 ML 50 ML IVPB SCH ×2 (04:51→16:49)
[2021-04-12] MEDS: Heparin 5000 UNITS/ML 1 mL VIAL SUBCUT SCH ×3 (05:53→23:59)
[2021-04-12] MEDS ORDERED: Vancomycin Random Level NOTE FOLLOW UP ONE (06:00)
[2021-04-12 06:07] LABS: Hematocrit 25 % (35-47); Hemoglobin 8.2 g/dL (12.0-16.0); Mean Corpuscular HGB Conc 33 g/dL (31-36); Mean Corpuscular Hemoglobin 30 pg (27-31); Mean Corpuscular Volume 90 fL (80-97); Mean Platelet Volume 9.4 fL (7.4-10.4); Platelet Count 175 10^3/uL (150-450); Red Blood Count 2.76 10^6 /uL (3.70-4.87); Red Cell Distribution Width 13 % (10-15); White Blood Count 10.6 10^3/uL (3.5-10.8)
[2021-04-12 06:23] LABS: Anion Gap 9 mmol/L (2-11); Blood Urea Nitrogen 23 mg/dL (6-24); CO2 Carbon Dioxide 22 mmol/L (22-32); Calcium 8.5 mg/dL (8.6-10.3); Chloride 106 mmol/L (101-111); EGFR Non-African American 61.2 (>60); Glucose 181 mg/dL (70-100); Potassium 3.5 mmol/L (3.5-5.0); Sodium 137 mmol/L (135-145)
[2021-04-12 08:43] LABS: RBC Morphology Normal (Normal)
[2021-04-12 08:45] LABS: ABS Lymphocytes 0.5 10^3/ul (1.0-4.8); ABS Monocytes 1.5 10^3/ul (0-0.8); ABS Neutrophils 8.6 10^3/ul (1.5-7.7); Eosinophil % 0.2 %; Lymphocyte % 4.3 %
[2021-04-12] MEDS ORDERED: Vancomycin 1,000 MG - ONCE IVPB ONE (09:00)
[2021-04-12 09:49] LABS: Total Iron Binding Capacity 174 mcg/dL (250-450); Transferrin 124 mg/dL (203-362)
[2021-04-12 09:52] LABS: % Iron Saturation 11 % (15-55); Iron < 20 ug/dL (50-212); Unsaturated Iron Binding < 159 ug/dL
[2021-04-12 10:12] LABS: Ferritin 423.6 ng/mL (11-307)
[2021-04-12 10:15] LABS: Folate 8.65 ng/mL (5.90-24.80)
[2021-04-12 10:16] LABS: Vitamin B12 371 pg/mL (180-914)
[2021-04-12] MEDS ORDERED: BECLOMETHASONE BOTH NARES PRN (12:33)
[2021-04-12] MEDS ORDERED: Albuterol HFA INHALER 8 gm MDI INH PRN (12:38)
[2021-04-12] MEDS: Mometasone/Formoter 100/5 MDI INH SCH (18:59)
[2021-04-12] MEDS: CMCS: Dorzolamide/Timolol OPTH (NF) 10 ML BOT BOTH EYES SCH (21:31)
[2021-04-13 04:45] LABS: Hematocrit 25 % (35-47); Hemoglobin 8.4 g/dL (12.0-16.0); Mean Corpuscular HGB Conc 33 g/dL (31-36); Mean Corpuscular Hemoglobin 30 pg (27-31); Mean Corpuscular Volume 89 fL (80-97); Mean Platelet Volume 9.3 fL (7.4-10.4); Platelet Count 176 10^3/uL (150-450); Red Blood Count 2.82 10^6 /uL (3.70-4.87); Red Cell Distribution Width 13 % (10-15); White Blood Count 10.8 10^3/uL (3.5-10.8)
[2021-04-13 05:03] LABS: C Reactive Protein 165.55 mg/L (<8.01); Calcium 8.4 mg/dL (8.6-10.3); EGFR Non-African American 55.4 (>60); Potassium 3.1 mmol/L (3.5-5.0)
[2021-04-13] MEDS: Heparin 5000 UNITS/ML 1 mL VIAL SUBCUT SCH ×3 (06:02→21:02)
[2021-04-13] MEDS: Cefepime 2 GM in NS 0.9% 50 ML 50 ML IVPB SCH (06:02)
[2021-04-13 06:04] LABS: Basophilic Stippling 1+; Polychromasia 1+; RBC Morphology Normal (Normal)
[2021-04-13 06:13] LABS: ABS Eosinophils 0.2 10^3/ul (0-0.6); ABS Lymphocytes 0.8 10^3/ul (1.0-4.8); ABS Monocytes 1.8 10^3/ul (0-0.8); Eosinophil % 1.4 %; Lymphocyte % 7.3 %
[2021-04-13] MEDS: Mometasone/Formoter 100/5 MDI INH SCH ×2 (07:22→19:29)
[2021-04-13 08:30] LABS: EGFR African American 72.2 (>60); EGFR Non-African American 59.6 (>60)
[2021-04-13] MEDS ORDERED: Vancomycin Random Level NOTE FOLLOW UP ONE (08:30)
[2021-04-13] MEDS ORDERED: Insulin GLARGINE 100 un/ml 10 ml VIAL SUBCUT SCH (09:00)
[2021-04-13] MEDS: Isosorbide Mononit ER 30mg TAB PO SCH (10:42)
[2021-04-13] MEDS: Potassium Chlor 20 meq TAB.ER PO SCH ×2 (10:43→14:04)
[2021-04-13] MEDS: CMCS: Dorzolamide/Timolol OPTH (NF) 10 ML BOT BOTH EYES SCH ×2 (10:43→21:01)
[2021-04-13] MEDS: Vancomycin 1,250 MG in NS 0.9% 250 ml 250 ML IVPB SCH (12:34)
[2021-04-13 21:24] LABS: Magnesium 1.4 mg/dL (1.9-2.7)
[2021-04-14] MEDS: Heparin 5000 UNITS/ML 1 mL VIAL SUBCUT SCH ×3 (05:25→22:09)
[2021-04-14 05:46] LABS: Calcium 8.8 mg/dL (8.6-10.3); EGFR Non-African American 52.9 (>60); Potassium 3.9 mmol/L (3.5-5.0)
[2021-04-14] MEDS: Mometasone/Formoter 100/5 MDI INH SCH ×2 (07:21→19:16)
[2021-04-14] MEDS ORDERED: Magnesium Sulfate IV 3 GM in NS 0.9% 100 ml BAG 100 ML IVPB ONE (08:11)
[2021-04-14] MEDS ORDERED: Potassium Chlor 20 meq TAB.ER PO SCH (09:00)
[2021-04-14] MEDS: Vancomycin 1,250 MG in NS 0.9% 250 ml 250 ML IVPB SCH (10:27)
[2021-04-14] MEDS: Insulin GLARGINE 100 un/ml 10 ml VIAL SUBCUT SCH (10:27)
[2021-04-14] MEDS: Isosorbide Mononit ER 30mg TAB PO SCH (10:45)
[2021-04-14] MEDS: CMCS: Dorzolamide/Timolol OPTH (NF) 10 ML BOT BOTH EYES SCH ×2 (10:49→22:09)
[2021-04-15 05:02] LABS: Hematocrit 26 % (35-47); Hemoglobin 8.7 g/dL (12.0-16.0); Mean Corpuscular HGB Conc 33 g/dL (31-36); Mean Corpuscular Hemoglobin 29 pg (27-31); Mean Corpuscular Volume 89 fL (80-97); Mean Platelet Volume 9.6 fL (7.4-10.4); Platelet Count 205 10^3/uL (150-450); Red Blood Count 2.95 10^6 /uL (3.70-4.87); Red Cell Distribution Width 14 % (10-15); White Blood Count 11.6 10^3/uL (3.5-10.8)
[2021-04-15 05:24] LABS: Calcium 8.6 mg/dL (8.6-10.3); EGFR African American 56.8 (>60); EGFR Non-African American 46.9 (>60); Potassium 3.9 mmol/L (3.5-5.0)
[2021-04-15] MEDS: Heparin 5000 UNITS/ML 1 mL VIAL SUBCUT SCH ×3 (05:26→22:16)
[2021-04-15 05:38] LABS: ABS Basophils 0.1 10^3/ul (0-0.2); ABS Eosinophils 0.3 10^3/ul (0-0.6); ABS Lymphocytes 1.6 10^3/ul (1.0-4.8); ABS Monocytes 1.8 10^3/ul (0-0.8); ABS Neutrophils 7.8 10^3/ul (1.5-7.7); Eosinophil % 2.3 %; Lymphocyte % 13.9 %
[2021-04-15] MEDS: Mometasone/Formoter 100/5 MDI INH SCH ×2 (07:44→19:38)
[2021-04-15] MEDS ORDERED: NS 0.9% 1000 ml BAG 1,000 ML IV SCH (09:00)
[2021-04-15] MEDS: Insulin GLARGINE 100 un/ml 10 ml VIAL SUBCUT SCH (10:13)
[2021-04-15] MEDS: CMCS: Dorzolamide/Timolol OPTH (NF) 10 ML BOT BOTH EYES SCH ×2 (10:13→22:16)
[2021-04-15] MEDS: Isosorbide Mononit ER 30mg TAB PO SCH (10:14)
[2021-04-15] MEDS ORDERED: Vancomycin Trough Check NOTE FOLLOW UP ONE (10:30)
[2021-04-15 11:27] LABS: Vancomycin Trough 9.3 mcg/mL
[2021-04-15 11:28] LABS: EGFR African American 60.5 (>60)
[2021-04-15] MEDS: Vancomycin 1,250 MG in NS 0.9% 250 ml 250 ML IVPB SCH (11:46)
[2021-04-15] MEDS ORDERED: Dextrose 50% Syringe 50 ml 25 GM/50 ML SYRINGE IV PUSH PRN (14:57)
[2021-04-16] MEDS: Heparin 5000 UNITS/ML 1 mL VIAL SUBCUT SCH ×3 (05:59→20:51)
[2021-04-16] MEDS: Mometasone/Formoter 100/5 MDI INH SCH ×2 (07:45→20:01)
[2021-04-16] MEDS: Insulin GLARGINE 100 un/ml 10 ml VIAL SUBCUT SCH (08:43)
[2021-04-16] MEDS: Isosorbide Mononit ER 30mg TAB PO SCH (08:45)
[2021-04-16] MEDS: CMCS: Dorzolamide/Timolol OPTH (NF) 10 ML BOT BOTH EYES SCH ×2 (08:50→20:53)
[2021-04-16] MEDS: Vancomycin 1,250 MG in NS 0.9% 250 ml 250 ML IVPB SCH (13:03)
[2021-04-16] MEDS ORDERED: cefTRIAXone 1 gm/50 mL NS BAG 1 GM/50 ML BAG IVPB SCH (18:30)
[2021-04-16] MEDS: metroNIDAZOLE IV 500 MG/100ML 500 MG/100 ML BAG IVPB SCH (20:50)
[2021-04-17] MEDS: NS 0.9% IV SCH ×3 (00:02→03:03)
[2021-04-17] MEDS: Cefepime 2 GM in Dextrose 2 GM/50 ML BAG IV SCH ×3 (00:11→21:07)
[2021-04-17 00:16] LABS: Hematocrit 25 % (35-47); Hemoglobin 8.1 g/dL (12.0-16.0); Mean Corpuscular HGB Conc 32 g/dL (31-36); Mean Corpuscular Hemoglobin 29 pg (27-31); Mean Corpuscular Volume 90 fL (80-97); Mean Platelet Volume 8.8 fL (7.4-10.4); Platelet Count 248 10^3/uL (150-450); Red Blood Count 2.79 10^6 /uL (3.70-4.87); Red Cell Distribution Width 14 % (10-15); White Blood Count 17.4 10^3/uL (3.5-10.8)
[2021-04-17 00:35] LABS: Albumin 2.6 g/dL (3.2-5.2); Albumin/Globulin Ratio 0.7 (1-3); C Reactive Protein 164.64 mg/L (<8.01); Calcium 8.7 mg/dL (8.6-10.3); EGFR Non-African American 47.9 (>60); Potassium 3.6 mmol/L (3.5-5.0); Total Bilirubin 0.3 mg/dL (0.2-1.0); Total Protein 6.6 g/dL (6.4-8.9)
[2021-04-17 01:06] LABS: ABS Basophils 0.1 10^3/ul (0-0.2); ABS Eosinophils 0.1 10^3/ul (0-0.6); ABS Lymphocytes 0.9 10^3/ul (1.0-4.8); ABS Monocytes 2.5 10^3/ul (0-0.8); ABS Neutrophils 13.8 10^3/ul (1.5-7.7); Eosinophil % 0.4 %; Lymphocyte % 5.3 %; Nucleated Red Blood Cells % 0.1
[2021-04-17] MEDS: metroNIDAZOLE IV 500 MG/100ML 500 MG/100 ML BAG IVPB SCH ×3 (03:03→19:24)
[2021-04-17] MEDS: Heparin 5000 UNITS/ML 1 mL VIAL SUBCUT SCH ×3 (05:00→21:08)
[2021-04-17 06:00] LABS: Hematocrit 25 % (35-47); Hemoglobin 7.9 g/dL (12.0-16.0); Mean Corpuscular HGB Conc 32 g/dL (31-36); Mean Corpuscular Hemoglobin 29 pg (27-31); Mean Corpuscular Volume 91 fL (80-97); Platelet Count 212 10^3/uL (150-450); Red Blood Count 2.72 10^6 /uL (3.70-4.87); Red Cell Distribution Width 14 % (10-15)
[2021-04-17] MEDS: Mometasone/Formoter 100/5 MDI INH SCH ×2 (08:00→20:18)
[2021-04-17] MEDS: Isosorbide Mononit ER 30mg TAB PO SCH (09:13)
[2021-04-17] MEDS: CMCS: Dorzolamide/Timolol OPTH (NF) 10 ML BOT BOTH EYES SCH ×2 (09:15→21:30)
[2021-04-17] MEDS: Insulin GLARGINE 100 un/ml 10 ml VIAL SUBCUT SCH (09:15)
[2021-04-17] MEDS ORDERED: Vancomycin Trough Check NOTE FOLLOW UP ONE (10:30)
[2021-04-17 10:52] LABS: Urine Appearance Cloudy; Urine Bilirubin Negative (Negative); Urine Blood Negative (Negative); Urine Color Yellow; Urine Glucose Negative (Negative); Urine Ketones Trace (Negative); Urine Nitrite Negative (Negative); Urine Protein 1+(30 mg/dL) (Negative); Urine Specific Gravity 1.015 (1.002-1.030); Urine Urobilinogen Negative (Negative)
[2021-04-17 11:07] LABS: Urine Bacteria 1+ (Absent); Urine Red Blood Cell Absent (Absent); Urine Squamous Epithelial Cell Present (Absent); Urine White Blood Cell 1+(6-10/hpf) (Absent)
[2021-04-17 11:18] LABS: EGFR African American 64.7 (>60); EGFR Non-African American 53.5 (>60)
[2021-04-17] MEDS: Vancomycin 1,250 MG in NS 0.9% 250 ml 250 ML IVPB SCH (11:24)
[2021-04-17] MEDS ORDERED: Heparin 2 UNITS/ML IVPREMIX 2,000 UNIT/1,000 ML BAG IV ONE (12:39)
[2021-04-17] MEDS ORDERED: Iodixanol 320 (CONTRAST) 100 ML SDV ONE (12:39)
[2021-04-17] MEDS ORDERED: Lidocaine 1% VIAL 10 MG/ML VIAL ONE (12:39)
[2021-04-17] MEDS ORDERED: fentaNYL 100 mcg/2 ml 50 MCG/ML VIAL ONE ×2 (12:40→14:44)
[2021-04-17] MEDS ORDERED: Midazolam 5 mg/5 ml VIAL 1 mg/ml 5 ml VIAL (5 mg) ONE (12:40)
[2021-04-17] MEDS ORDERED: hydrALAZINE 20 mg/ml 1 ML Vial IV ONE (13:57)
[2021-04-17] MEDS ORDERED: Heparin 2 UNITS/ML IVPREMIX 1,000 UNIT/500 ML BAG IV ONE (13:59)
[2021-04-17] MEDS ORDERED: Heparin 1,000 UNIT/ML 10 ml (10,000 UNITS) CATHLAB/DIALYSIS ONE (13:59)
[2021-04-17] MEDS ORDERED: nitroGLYCERIN DRIP 25,000 MCG/250 ML BTL ONE (14:07)
[2021-04-17] MEDS ORDERED: Metoprolol Tartrate 5 mg VIAL 5 ml VIAL (1 mg/ml) ONE ×2 (14:20→14:34)
[2021-04-17] MEDS ORDERED: Morphine 2 MG/ML SYRINGE IV PRN (20:17)
[2021-04-18] MEDS: metroNIDAZOLE IV 500 MG/100ML 500 MG/100 ML BAG IVPB SCH ×3 (04:12→21:32)
[2021-04-18] MEDS: Heparin 5000 UNITS/ML 1 mL VIAL SUBCUT SCH ×3 (04:12→21:33)
[2021-04-18 05:49] LABS: Hematocrit 23 % (35-47); Hemoglobin 7.3 g/dL (12.0-16.0); Mean Corpuscular HGB Conc 33 g/dL (31-36); Mean Corpuscular Hemoglobin 29 pg (27-31); Mean Corpuscular Volume 90 fL (80-97); Mean Platelet Volume 9.8 fL (7.4-10.4); Platelet Count 218 10^3/uL (150-450); Red Blood Count 2.51 10^6 /uL (3.70-4.87); Red Cell Distribution Width 14 % (10-15); White Blood Count 15.3 10^3/uL (3.5-10.8)
[2021-04-18 06:56] LABS: C Reactive Protein 237.57 mg/L (<8.01)
[2021-04-18] MEDS: Mometasone/Formoter 100/5 MDI INH SCH ×2 (07:44→19:30)
[2021-04-18 09:06] LABS: ABS Eosinophils 0.1 10^3/ul (0-0.6); ABS Lymphocytes 0.8 10^3/ul (1.0-4.8); ABS Monocytes 2.2 10^3/ul (0-0.8); ABS Neutrophils 12.2 10^3/ul (1.5-7.7); Eosinophil % 0.7 %; Lymphocyte % 4.9 %
[2021-04-18 09:32] LABS: Folate 9.33 ng/mL (5.90-24.80)
[2021-04-18] MEDS: Cefepime 2 GM in Dextrose 2 GM/50 ML BAG IV SCH ×2 (10:16→21:33)
[2021-04-18] MEDS: Insulin GLARGINE 100 un/ml 10 ml VIAL SUBCUT SCH (10:19)
[2021-04-18] MEDS: Isosorbide Mononit ER 30mg TAB PO SCH (10:19)
[2021-04-18] MEDS: CMCS: Dorzolamide/Timolol OPTH (NF) 10 ML BOT BOTH EYES SCH ×2 (10:21→21:45)
[2021-04-18] MEDS: Vancomycin 1,250 MG in NS 0.9% 250 ml 250 ML IVPB SCH (11:11)
[2021-04-18 16:24] LABS: Hematocrit 24 % (35-47); Hemoglobin 7.9 g/dL (12.0-16.0)
[2021-04-18 18:03] LABS: Glucose Confirmatory 423 mg/dL (70-100)
[2021-04-18] MEDS ORDERED: Povidone Iodine SWABSTICK TOPICAL SCH (21:00)
[2021-04-19] MEDS: metroNIDAZOLE IV 500 MG/100ML 500 MG/100 ML BAG IVPB SCH ×4 (03:48→22:52)
[2021-04-19] MEDS: Heparin 5000 UNITS/ML 1 mL VIAL SUBCUT SCH ×3 (05:41→22:26)
[2021-04-19 06:11] LABS: Hematocrit 25 % (35-47); Mean Corpuscular HGB Conc 32 g/dL (31-36); Mean Corpuscular Hemoglobin 29 pg (27-31); Mean Corpuscular Volume 90 fL (80-97); Mean Platelet Volume 9.6 fL (7.4-10.4); Platelet Count 219 10^3/uL (150-450); Red Blood Count 2.74 10^6 /uL (3.70-4.87); Red Cell Distribution Width 14 % (10-15); White Blood Count 14.3 10^3/uL (3.5-10.8)
[2021-04-19 06:37] LABS: Albumin 2.2 g/dL (3.2-5.2); Albumin/Globulin Ratio 0.6 (1-3); Calcium 8.1 mg/dL (8.6-10.3); EGFR Non-African American 44.6 (>60); Globulin 3.5 g/dL (2-4); Potassium 3.5 mmol/L (3.5-5.0); Total Bilirubin 0.4 mg/dL (0.2-1.0); Total Protein 5.7 g/dL (6.4-8.9)
[2021-04-19 07:15] LABS: ABS Eosinophils 0.1 10^3/ul (0-0.6); ABS Lymphocytes 0.9 10^3/ul (1.0-4.8); ABS Neutrophils 11.3 10^3/ul (1.5-7.7); Eosinophil % 0.7 %; Lymphocyte % 6.1 %
[2021-04-19] MEDS: Mometasone/Formoter 100/5 MDI INH SCH ×2 (08:18→20:56)
[2021-04-19 09:45] LABS: C Reactive Protein 216.15 mg/L (<8.01)
[2021-04-19 10:36] LABS: Glucose Confirmatory 405 mg/dL (70-100)
[2021-04-19] MEDS: Cefepime 2 GM in Dextrose 2 GM/50 ML BAG IV SCH ×2 (11:06→22:24)
[2021-04-19] MEDS: Insulin GLARGINE 100 un/ml 10 ml VIAL SUBCUT SCH (11:07)
[2021-04-19] MEDS: Isosorbide Mononit ER 30mg TAB PO SCH (11:08)
[2021-04-19] MEDS: CMCS: Dorzolamide/Timolol OPTH (NF) 10 ML BOT BOTH EYES SCH ×2 (11:12→22:28)
[2021-04-19] MEDS: Vancomycin 1,250 MG in NS 0.9% 250 ml 250 ML IVPB SCH (12:55)
[2021-04-20] MEDS: metroNIDAZOLE IV 500 MG/100ML 500 MG/100 ML BAG IVPB SCH ×3 (06:10→22:12)
[2021-04-20 06:29] LABS: Hematocrit 25 % (35-47); Hemoglobin 8.1 g/dL (12.0-16.0); Mean Corpuscular HGB Conc 33 g/dL (31-36); Mean Corpuscular Hemoglobin 30 pg (27-31); Mean Corpuscular Volume 90 fL (80-97); Mean Platelet Volume 9.5 fL (7.4-10.4); Platelet Count 236 10^3/uL (150-450); Red Blood Count 2.75 10^6 /uL (3.70-4.87); Red Cell Distribution Width 14 % (10-15); White Blood Count 13.6 10^3/uL (3.5-10.8)
[2021-04-20 06:40] LABS: EGFR African American 55.6 (>60); Potassium 3.7 mmol/L (3.5-5.0)
[2021-04-20] MEDS: Mometasone/Formoter 100/5 MDI INH SCH ×2 (07:17→20:37)
[2021-04-20 07:24] LABS: ABS Basophils 0.1 10^3/ul (0-0.2); ABS Eosinophils 0.2 10^3/ul (0-0.6); ABS Lymphocytes 0.6 10^3/ul (1.0-4.8); ABS Monocytes 1.7 10^3/ul (0-0.8); ABS Neutrophils 11.1 10^3/ul (1.5-7.7); Eosinophil % 1.3 %; Lymphocyte % 4.6 %; Nucleated Red Blood Cells % 0.1
[2021-04-20] MEDS: Isosorbide Mononit ER 30mg TAB PO SCH (10:08)
[2021-04-20] MEDS: Insulin GLARGINE 100 un/ml 10 ml VIAL SUBCUT SCH (10:08)
[2021-04-20] MEDS ORDERED: Vancomycin Trough Check NOTE FOLLOW UP ONE (10:30)
[2021-04-20] MEDS: Cefepime 2 GM in Dextrose 2 GM/50 ML BAG IV SCH ×2 (10:39→22:30)
[2021-04-20] MEDS: CMCS: Dorzolamide/Timolol OPTH (NF) 10 ML BOT BOTH EYES SCH ×2 (10:41→22:12)
[2021-04-20] MEDS: Vancomycin 1,250 MG in NS 0.9% 250 ml 250 ML IVPB SCH (13:54)
[2021-04-20] MEDS ORDERED: Bupivacaine 0.25% SDV 30 ML ONE (18:07)
[2021-04-20] MEDS ORDERED: Midazolam 2 mg/2 ml VIAL 1 mg/ml 2 ml VIAL (2 mg) ONE (18:14)
[2021-04-20] MEDS ORDERED: fentaNYL 100 mcg/2 ml 50 MCG/ML VIAL ONE ×2 (18:14→21:05)
[2021-04-20] MEDS ORDERED: Lidocaine 2% PF 5 ML VIAL ONE (18:16)
[2021-04-20] MEDS ORDERED: Propofol 10 MG/ML 20 ML BTL ONE ×2 (18:21→18:32)
[2021-04-20] MEDS ORDERED: Bupivacaine 0.5% SDV PF 30ML VIAL ONE (18:34)
[2021-04-20] MEDS ORDERED: oxyCODONE/Acetamin 5/325 mg TAB PO PRN (20:56)
[2021-04-20] MEDS ORDERED: fentaNYL 100 mcg/2 ml 50 MCG/ML VIAL IV PRN (20:56)
[2021-04-20] MEDS ORDERED: Naloxone 0.4 mg VIAL 0.4 mg/ml 1 ml VIAL IV PRN (20:56)
[2021-04-20] MEDS ORDERED: DiMENhydriNATE IV 50 mg/ml 1 ml VIAL IV PUSH PRN (20:56)
[2021-04-20] MEDS ORDERED: Ondansetron 4 mg VIAL 2 MG/ML 2 ml VIAL IV PRN (20:56)
[2021-04-20 23:54] LABS: Albumin 1.6 g/dL (3.4-4.7); Albumin/Globulin Ratio 0.45; Gamma Globulin 1.4 g/dL (0.6-1.6); Total Protein(PEP) 5.2 g/dL (6.3 - 7.9)
[2021-04-21] MEDS: metroNIDAZOLE IV 500 MG/100ML 500 MG/100 ML BAG IVPB SCH ×4 (05:22→22:56)
[2021-04-21] MEDS: Mometasone/Formoter 100/5 MDI INH SCH ×2 (07:29→20:10)
[2021-04-21 08:42] LABS: Hematocrit 26 % (35-47); Hemoglobin 8.5 g/dL (12.0-16.0); Mean Corpuscular HGB Conc 33 g/dL (31-36); Mean Corpuscular Hemoglobin 29 pg (27-31); Mean Corpuscular Volume 89 fL (80-97); Platelet Count 267 10^3/uL (150-450); Red Blood Count 2.93 10^6 /uL (3.70-4.87); Red Cell Distribution Width 14 % (10-15); White Blood Count 15.4 10^3/uL (3.5-10.8)
[2021-04-21 08:57] LABS: Calcium 8.3 mg/dL (8.6-10.3); Potassium 3.5 mmol/L (3.5-5.0)
[2021-04-21] MEDS: Cefepime 2 GM in Dextrose 2 GM/50 ML BAG IV SCH ×2 (10:07→21:30)
[2021-04-21] MEDS: Vancomycin 1,250 MG in NS 0.9% 250 ml 250 ML IVPB SCH (10:07)
[2021-04-21 10:08] LABS: ABS Basophils 0.1 10^3/ul (0-0.2); ABS Eosinophils 0.2 10^3/ul (0-0.6); ABS Lymphocytes 0.7 10^3/ul (1.0-4.8); ABS Monocytes 1.6 10^3/ul (0-0.8); ABS Neutrophils 12.9 10^3/ul (1.5-7.7); Eosinophil % 1.1 %; Lymphocyte % 4.5 %
[2021-04-21] MEDS: Isosorbide Mononit ER 30mg TAB PO SCH (10:08)
[2021-04-21] MEDS: CMCS: Dorzolamide/Timolol OPTH (NF) 10 ML BOT BOTH EYES SCH ×2 (10:09→21:05)
[2021-04-21] MEDS: Insulin GLARGINE 100 un/ml 10 ml VIAL SUBCUT SCH (10:10)
[2021-04-21] MEDS ORDERED: Fluticasone NASAL SPRAY 50MCG 16 gm SPRAY BTL BOTH NARES PRN (13:43)
[2021-04-22] MEDS: Enoxaparin 40 MG/0.4 ML SYR SUBCUT SCH ×2 (02:44→17:33)
[2021-04-22 06:15] LABS: Hematocrit 23 % (35-47); Hemoglobin 7.5 g/dL (12.0-16.0); Mean Corpuscular HGB Conc 32 g/dL (31-36); Mean Corpuscular Hemoglobin 29 pg (27-31); Mean Corpuscular Volume 90 fL (80-97); Mean Platelet Volume 8.7 fL (7.4-10.4); Platelet Count 248 10^3/uL (150-450); Red Blood Count 2.57 10^6 /uL (3.70-4.87); Red Cell Distribution Width 14 % (10-15); White Blood Count 12.1 10^3/uL (3.5-10.8)
[2021-04-22] MEDS: metroNIDAZOLE IV 500 MG/100ML 500 MG/100 ML BAG IVPB SCH ×3 (06:23→22:15)
[2021-04-22] MEDS: Mometasone/Formoter 100/5 MDI INH SCH ×2 (08:00→20:08)
[2021-04-22] MEDS: Cefepime 2 GM in Dextrose 2 GM/50 ML BAG IV SCH ×2 (08:57→22:15)
[2021-04-22] MEDS: Isosorbide Mononit ER 30mg TAB PO SCH (08:58)
[2021-04-22] MEDS: CMCS: Dorzolamide/Timolol OPTH (NF) 10 ML BOT BOTH EYES SCH ×2 (08:59→22:24)
[2021-04-22] MEDS: Insulin GLARGINE 100 un/ml 10 ml VIAL SUBCUT SCH (09:06)
[2021-04-22] MEDS: Vancomycin 1,250 MG in NS 0.9% 250 ml 250 ML IVPB SCH (11:19)
[2021-04-23] MEDS: Enoxaparin 40 MG/0.4 ML SYR SUBCUT SCH ×2 (05:57→17:12)
[2021-04-23] MEDS: metroNIDAZOLE IV 500 MG/100ML 500 MG/100 ML BAG IVPB SCH ×3 (05:57→23:07)
[2021-04-23 06:44] LABS: Hematocrit 23 % (35-47); Hemoglobin 7.4 g/dL (12.0-16.0); Mean Corpuscular HGB Conc 32 g/dL (31-36); Mean Corpuscular Hemoglobin 29 pg (27-31); Mean Corpuscular Volume 90 fL (80-97); Mean Platelet Volume 8.8 fL (7.4-10.4); Platelet Count 246 10^3/uL (150-450); Red Blood Count 2.56 10^6 /uL (3.70-4.87); Red Cell Distribution Width 14 % (10-15); White Blood Count 11.3 10^3/uL (3.5-10.8)
[2021-04-23 07:03] LABS: Albumin 2.1 g/dL (3.2-5.2); Albumin/Globulin Ratio 0.6 (1-3); C Reactive Protein 109.79 mg/L (<8.01); Calcium 7.8 mg/dL (8.6-10.3); EGFR African American 68.7 (>60); EGFR Non-African American 56.7 (>60); Globulin 3.7 g/dL (2-4); Potassium 3.4 mmol/L (3.5-5.0); Total Bilirubin 0.3 mg/dL (0.2-1.0); Total Protein 5.8 g/dL (6.4-8.9)
[2021-04-23 07:58] LABS: Magnesium 1.6 mg/dL (1.9-2.7)
[2021-04-23 08:18] LABS: ABS Eosinophils 0.2 10^3/ul (0-0.6); ABS Lymphocytes 0.8 10^3/ul (1.0-4.8); ABS Monocytes 1.3 10^3/ul (0-0.8); ABS Neutrophils 8.9 10^3/ul (1.5-7.7); Eosinophil % 1.4 %; Lymphocyte % 7.1 %; Nucleated Red Blood Cells % 0.1
[2021-04-23] MEDS ORDERED: Magnesium Sulfate 2 gm BAG 2 GM/50 ML BAG IVPB ONE (08:29)
[2021-04-23] MEDS: KCL 20 MEQ/100 ML IVPREMIX 20 MEQ/100 ML BAG IV SCH ×3 (09:28→14:22)
[2021-04-23] MEDS: Insulin GLARGINE 100 un/ml 10 ml VIAL SUBCUT SCH (09:39)
[2021-04-23] MEDS: Isosorbide Mononit ER 30mg TAB PO SCH (09:39)
[2021-04-23] MEDS: CMCS: Dorzolamide/Timolol OPTH (NF) 10 ML BOT BOTH EYES SCH ×2 (09:41→21:13)
[2021-04-23] MEDS ORDERED: Buffered Lidocaine 1% SYRIN 1 ml INTRADERM ONE (09:54)
[2021-04-23] MEDS: Mometasone/Formoter 100/5 MDI INH SCH ×2 (10:02→19:45)
[2021-04-23] MEDS: Cefepime 2 GM in Dextrose 2 GM/50 ML BAG IV SCH (10:46)
[2021-04-23] MEDS ORDERED: Vancomycin Trough Check NOTE FOLLOW UP ONE (11:00)
[2021-04-23] MEDS: Vancomycin 1,250 MG in NS 0.9% 250 ml 250 ML IVPB SCH (14:22)
[2021-04-23 14:49] LABS: Hematocrit 27 % (35-47)
[2021-04-24 05:32] LABS: Hematocrit 25 % (35-47); Hemoglobin 8.6 g/dL (12.0-16.0); Mean Corpuscular HGB Conc 34 g/dL (31-36); Mean Corpuscular Hemoglobin 31 pg (27-31); Mean Corpuscular Volume 89 fL (80-97); Mean Platelet Volume 8.9 fL (7.4-10.4); Platelet Count 248 10^3/uL (150-450); Red Blood Count 2.81 10^6 /uL (3.70-4.87); Red Cell Distribution Width 15 % (10-15)
[2021-04-24] MEDS: metroNIDAZOLE IV 500 MG/100ML 500 MG/100 ML BAG IVPB SCH ×3 (05:33→22:45)
[2021-04-24] MEDS: Enoxaparin 40 MG/0.4 ML SYR SUBCUT SCH ×2 (05:33→18:25)
[2021-04-24 05:57] LABS: Albumin 2.1 g/dL (3.2-5.2); Albumin/Globulin Ratio 0.6 (1-3); EGFR African American 65.5 (>60); EGFR Non-African American 54.1 (>60); Globulin 3.8 g/dL (2-4); Potassium 3.8 mmol/L (3.5-5.0); Total Bilirubin 0.3 mg/dL (0.2-1.0); Total Protein 5.9 g/dL (6.4-8.9)
[2021-04-24 07:45] LABS: ABS Basophils 0.1 10^3/ul (0-0.2); ABS Eosinophils 0.2 10^3/ul (0-0.6); ABS Lymphocytes 1.1 10^3/ul (1.0-4.8); ABS Monocytes 1.2 10^3/ul (0-0.8); ABS Neutrophils 7.4 10^3/ul (1.5-7.7); Lymphocyte % 10.7 %
[2021-04-24 07:46] LABS: RBC Morphology Normal (Normal)
[2021-04-24] MEDS: Polyethylene Glycol 3350 17 GM PACKET PO SCH (08:42)
[2021-04-24] MEDS: Insulin GLARGINE 100 un/ml 10 ml VIAL SUBCUT SCH (08:42)
[2021-04-24] MEDS: Isosorbide Mononit ER 30mg TAB PO SCH (08:43)
[2021-04-24] MEDS: CMCS: Dorzolamide/Timolol OPTH (NF) 10 ML BOT BOTH EYES SCH ×2 (08:46→22:45)
[2021-04-24] MEDS: Mometasone/Formoter 100/5 MDI INH SCH (09:45)
[2021-04-24] MEDS: Vancomycin 1,250 MG in NS 0.9% 250 ml 250 ML IVPB SCH (12:00)
[2021-04-24] MEDS: Senna TAB 8.6 mg TAB PO SCH (22:45)
[2021-04-25] MEDS: Mometasone/Formoter 100/5 MDI INH SCH ×3 (04:19→21:33)
[2021-04-25 06:15] LABS: Hematocrit 25 % (35-47); Hemoglobin 8.6 g/dL (12.0-16.0); Mean Corpuscular HGB Conc 34 g/dL (31-36); Mean Corpuscular Hemoglobin 31 pg (27-31); Mean Corpuscular Volume 89 fL (80-97); Mean Platelet Volume 8.7 fL (7.4-10.4); Platelet Count 256 10^3/uL (150-450); Red Blood Count 2.81 10^6 /uL (3.70-4.87); Red Cell Distribution Width 14 % (10-15); White Blood Count 7.8 10^3/uL (3.5-10.8)
[2021-04-25] MEDS: Enoxaparin 40 MG/0.4 ML SYR SUBCUT SCH ×2 (06:15→18:36)
[2021-04-25] MEDS: metroNIDAZOLE IV 500 MG/100ML 500 MG/100 ML BAG IVPB SCH ×3 (06:16→21:58)
[2021-04-25 06:32] LABS: Calcium 8.1 mg/dL (8.6-10.3); EGFR African American 80.2 (>60); EGFR Non-African American 66.3 (>60); Potassium 3.6 mmol/L (3.5-5.0)
[2021-04-25 07:36] LABS: ABS Eosinophils 0.2 10^3/ul (0-0.6); ABS Lymphocytes 0.9 10^3/ul (1.0-4.8); ABS Monocytes 1.3 10^3/ul (0-0.8); ABS Neutrophils 5.4 10^3/ul (1.5-7.7); Eosinophil % 2.2 %; Lymphocyte % 11.2 %; Nucleated Red Blood Cells % 0.1
[2021-04-25 09:04] LABS: Flag, M-protein Isotype Negative (Negative)
[2021-04-25] MEDS: Insulin GLARGINE 100 un/ml 10 ml VIAL SUBCUT SCH (10:08)
[2021-04-25] MEDS: Isosorbide Mononit ER 30mg TAB PO SCH (10:09)
[2021-04-25] MEDS: Polyethylene Glycol 3350 17 GM PACKET PO SCH (10:11)
[2021-04-25] MEDS: Vancomycin 1,250 MG in NS 0.9% 250 ml 250 ML IVPB SCH (10:12)
[2021-04-25] MEDS: CMCS: Dorzolamide/Timolol OPTH (NF) 10 ML BOT BOTH EYES SCH ×2 (10:12→21:58)
[2021-04-25] MEDS: Senna TAB 8.6 mg TAB PO SCH (21:35)
[2021-04-26] MEDS: Enoxaparin 40 MG/0.4 ML SYR SUBCUT SCH ×2 (05:34→17:34)
[2021-04-26] MEDS: metroNIDAZOLE IV 500 MG/100ML 500 MG/100 ML BAG IVPB SCH ×3 (05:34→22:53)
[2021-04-26 06:08] LABS: Hematocrit 27 % (35-47); Mean Corpuscular HGB Conc 33 g/dL (31-36); Mean Corpuscular Hemoglobin 30 pg (27-31); Mean Corpuscular Volume 90 fL (80-97); Platelet Count 255 10^3/uL (150-450); Red Blood Count 3.03 10^6 /uL (3.70-4.87); Red Cell Distribution Width 14 % (10-15); White Blood Count 7.8 10^3/uL (3.5-10.8)
[2021-04-26 06:24] LABS: C Reactive Protein 36.49 mg/L (<8.01); Calcium 7.9 mg/dL (8.6-10.3); Potassium 3.6 mmol/L (3.5-5.0)
[2021-04-26 07:02] LABS: ABS Basophils 0.1 10^3/ul (0-0.2); ABS Eosinophils 0.1 10^3/ul (0-0.6); ABS Lymphocytes 0.9 10^3/ul (1.0-4.8); ABS Monocytes 1.4 10^3/ul (0-0.8); ABS Neutrophils 5.3 10^3/ul (1.5-7.7); Eosinophil % 1.8 %; Lymphocyte % 11.1 %
[2021-04-26] MEDS: Isosorbide Mononit ER 30mg TAB PO SCH (08:01)
[2021-04-26] MEDS: Polyethylene Glycol 3350 17 GM PACKET PO SCH (08:03)
[2021-04-26] MEDS: Insulin GLARGINE 100 un/ml 10 ml VIAL SUBCUT SCH (10:07)
[2021-04-26] MEDS: CMCS: Dorzolamide/Timolol OPTH (NF) 10 ML BOT BOTH EYES SCH ×2 (10:08→21:26)
[2021-04-26] MEDS: Mometasone/Formoter 100/5 MDI INH SCH ×2 (10:28→20:07)
[2021-04-26] MEDS: Vancomycin 1,250 MG in NS 0.9% 250 ml 250 ML IVPB SCH (12:38)
[2021-04-26] MEDS: Senna TAB 8.6 mg TAB PO SCH (20:20)
[2021-04-27] MEDS: Enoxaparin 40 MG/0.4 ML SYR SUBCUT SCH ×2 (05:04→17:46)
[2021-04-27 05:39] LABS: Hematocrit 27 % (35-47); Hemoglobin 9.1 g/dL (12.0-16.0); Mean Corpuscular HGB Conc 33 g/dL (31-36); Mean Corpuscular Hemoglobin 30 pg (27-31); Mean Corpuscular Volume 90 fL (80-97); Platelet Count 267 10^3/uL (150-450); Red Blood Count 3.05 10^6 /uL (3.70-4.87); Red Cell Distribution Width 15 % (10-15); White Blood Count 7.1 10^3/uL (3.5-10.8)
[2021-04-27 06:43] LABS: ABS Basophils 0.1 10^3/ul (0-0.2); ABS Eosinophils 0.1 10^3/ul (0-0.6); ABS Lymphocytes 1.1 10^3/ul (1.0-4.8); ABS Monocytes 1.2 10^3/ul (0-0.8); ABS Neutrophils 4.6 10^3/ul (1.5-7.7); Eosinophil % 2.1 %; Lymphocyte % 14.9 %
[2021-04-27] MEDS: Isosorbide Mononit ER 30mg TAB PO SCH (09:03)
[2021-04-27] MEDS: Polyethylene Glycol 3350 17 GM PACKET PO SCH (09:05)
[2021-04-27] MEDS: Insulin GLARGINE 100 un/ml 10 ml VIAL SUBCUT SCH (09:05)
[2021-04-27] MEDS: CMCS: Dorzolamide/Timolol OPTH (NF) 10 ML BOT BOTH EYES SCH ×2 (09:10→22:06)
[2021-04-27] MEDS: Mometasone/Formoter 100/5 MDI INH SCH ×2 (09:47→20:09)
[2021-04-27 10:20] LABS: EGFR African American 73.1 (>60); EGFR Non-African American 60.4 (>60)
[2021-04-27] MEDS ORDERED: Vancomycin Trough Check NOTE FOLLOW UP ONE (10:30)
[2021-04-27 10:41] LABS: Vancomycin Trough 13.8 mcg/mL
[2021-04-27] MEDS: Vancomycin 1,250 MG in NS 0.9% 250 ml 250 ML IVPB SCH (11:40)
[2021-04-27] MEDS: Senna TAB 8.6 mg TAB PO SCH (22:10)
[2021-04-28] MEDS: Enoxaparin 40 MG/0.4 ML SYR SUBCUT SCH ×2 (05:47→17:27)
[2021-04-28] MEDS: Mometasone/Formoter 100/5 MDI INH SCH ×2 (07:04→19:09)
[2021-04-28] MEDS: Polyethylene Glycol 3350 17 GM PACKET PO SCH (10:02)
[2021-04-28] MEDS: Isosorbide Mononit ER 30mg TAB PO SCH (10:03)
[2021-04-28] MEDS: Insulin GLARGINE 100 un/ml 10 ml VIAL SUBCUT SCH (10:05)
[2021-04-28] MEDS: CMCS: Dorzolamide/Timolol OPTH (NF) 10 ML BOT BOTH EYES SCH ×2 (10:06→21:36)
[2021-04-28] MEDS: Vancomycin 1,250 MG in NS 0.9% 250 ml 250 ML IVPB SCH (12:36)
[2021-04-28] MEDS ORDERED: Polyethylene Glycol 3350 17 GM PACKET PO PRN (14:26)
[2021-04-28] MEDS ORDERED: Senna TAB 8.6 mg TAB PO PRN (14:26)
[2021-04-29] MEDS: Enoxaparin 40 MG/0.4 ML SYR SUBCUT SCH ×2 (05:25→16:49)
[2021-04-29 05:42] LABS: Hematocrit 26 % (35-47); Hemoglobin 8.5 g/dL (12.0-16.0); Mean Corpuscular HGB Conc 33 g/dL (31-36); Mean Corpuscular Hemoglobin 30 pg (27-31); Mean Corpuscular Volume 90 fL (80-97); Mean Platelet Volume 8.5 fL (7.4-10.4); Platelet Count 241 10^3/uL (150-450); Red Blood Count 2.83 10^6 /uL (3.70-4.87); Red Cell Distribution Width 15 % (10-15); White Blood Count 6.6 10^3/uL (3.5-10.8)
[2021-04-29 05:57] LABS: Calcium 8.3 mg/dL (8.6-10.3); EGFR African American 60.5 (>60); Potassium 3.6 mmol/L (3.5-5.0)
[2021-04-29 06:05] LABS: ABS Basophils 0.1 10^3/ul (0-0.2); ABS Eosinophils 0.1 10^3/ul (0-0.6); ABS Lymphocytes 1.1 10^3/ul (1.0-4.8); ABS Monocytes 1.2 10^3/ul (0-0.8); ABS Neutrophils 4.1 10^3/ul (1.5-7.7); Eosinophil % 2.1 %; Lymphocyte % 17.2 %
[2021-04-29] MEDS: Mometasone/Formoter 100/5 MDI INH SCH (07:22)
[2021-04-29] MEDS: Isosorbide Mononit ER 30mg TAB PO SCH (09:12)
[2021-04-29] MEDS: Insulin GLARGINE 100 un/ml 10 ml VIAL SUBCUT SCH (09:12)
[2021-04-29] MEDS: CMCS: Dorzolamide/Timolol OPTH (NF) 10 ML BOT BOTH EYES SCH ×2 (09:13→22:21)
[2021-04-29] MEDS: Vancomycin 1,250 MG in NS 0.9% 250 ml 250 ML IVPB SCH (12:41)
[2021-04-30] MEDS: Enoxaparin 40 MG/0.4 ML SYR SUBCUT SCH (06:18)
[2021-04-30] MEDS: Mometasone/Formoter 100/5 MDI INH SCH ×2 (07:08→07:09)
[2021-04-30] MEDS ORDERED: Insulin GLARGINE 100 un/ml 10 ml VIAL SUBCUT SCH (09:00)
[2021-04-30] MEDS: Isosorbide Mononit ER 30mg TAB PO SCH (09:16)
[2021-04-30] MEDS: CMCS: Dorzolamide/Timolol OPTH (NF) 10 ML BOT BOTH EYES SCH (09:17)
[2021-04-30 10:13] VITALS: BP 168/62
[2021-04-30] MEDS ORDERED: Vancomycin Trough Check NOTE FOLLOW UP ONE (10:30)
[2021-04-30 11:57] LABS: EGFR African American 59.9 (>60); EGFR Non-African American 49.5 (>60)
[2021-04-30 12:17] LABS: Vancomycin Trough 14.3 mcg/mL
[2021-04-30] MEDS: Vancomycin 1,250 MG in NS 0.9% 250 ml 250 ML IVPB SCH (13:11)
[2021-05-01 11:06] LABS: Albumin 14.7 mg/dL; Albumin/Globulin Ratio 0.27; Gamma Globulin 17.5 mg/dL; Protein,Total, Random Urine 70 mg/dL
== END 2021-04-30 14:15 | DRG 853 ==
LOC: ED 11:26 → MEDTELE 15:06 → MED 04-25 20:00
PROVIDERS: ADMIT Hospitalist; ATTEND Pediatrics

== ENCOUNTER 2021-06-09 22:44 | Inpatient (IN) ==
[2021-06-09] MEDS ORDERED: NS 0.9% 1000 ml BAG 1,000 ML IV ONE ×2 (23:02→23:21)
[2021-06-09 23:14] LABS: ABS Eosinophils 0.1 10^3/ul (0-0.6); ABS Lymphocytes 1.3 10^3/ul (1.0-4.8); ABS Monocytes 0.9 10^3/ul (0-0.8); ABS Neutrophils 11.1 10^3/ul (1.5-7.7); Eosinophil % 0.6 %; Hematocrit 24 % (35-47); Hemoglobin 7.6 g/dL (12.0-16.0); Lymphocyte % 9.6 %; Mean Corpuscular HGB Conc 32 g/dL (31-36); Mean Corpuscular Hemoglobin 29 pg (27-31); Mean Corpuscular Volume 89 fL (80-97); Mean Platelet Volume 9.1 fL (7.4-10.4); Platelet Count 172 10^3/uL (150-450); Red Blood Count 2.66 10^6 /uL (3.70-4.87); Red Cell Distribution Width 17 % (10-15); White Blood Count 13.4 10^3/uL (3.5-10.8)
[2021-06-09 23:32] LABS: ALT 8 U/L (7-52); AST 11 U/L (13-39); Albumin 2.7 g/dL (3.2-5.2); Albumin/Globulin Ratio 0.9 (1-3); Alkaline Phosphatase 80 U/L (35-149); Anion Gap 4 mmol/L (2-11); Blood Urea Nitrogen 46 mg/dL (6-24); CO2 Carbon Dioxide 26 mmol/L (22-32); Calcium 8.3 mg/dL (8.6-10.3); Chloride 105 mmol/L (101-111); EGFR African American 44.3 (>60); EGFR Non-African American 36.6 (>60); Glucose 125 mg/dL (70-100); Potassium 3.9 mmol/L (3.5-5.0); Sodium 135 mmol/L (135-145); Total Protein 5.7 g/dL (6.4-8.9)
[2021-06-09 23:33] LABS: Troponin I 0.01 ng/mL (<0.03)
[2021-06-09 23:37] LABS: Alcohol, S < 13 mg/dL (<13)
[2021-06-09 23:44] LABS: Cholesterol 147 mg/dL; HDL Cholesterol 32.8 mg/dL; LDL Cholesterol 100 mg/dL; Triglycerides 70 mg/dL
[2021-06-09 23:44] LABS: Activated Partial Thrombo Time 28.9 seconds (26.0-38.0); INR 1.18 (0.86-1.15)
[2021-06-09] MEDS ORDERED: Iodixanol (CONTRAST) 320 MG/ML 100 ML SDV IV ONE (23:47)
[2021-06-10] MEDS ORDERED: Iodixanol (CONTRAST) 320 MG/ML 100 ML SDV IV ONE (00:11)
[2021-06-10 01:51] LABS: PCO2 Arterial 46 mmHg (35-45)
[2021-06-10 01:56] LABS: PO2 Arterial 53 mmHg (80-100)
[2021-06-10] MEDS ORDERED: Vancomycin per Pharmacy 1 EA NOTE FOLLOW UP SCH (02:00)
[2021-06-10] MEDS ORDERED: NS 0.9% 1000 ml BAG 1,000 ML IV SCH (02:00)
[2021-06-10] MEDS ORDERED: Cefepime 2 GM IV - ED ONCE IV ONE (02:03)
[2021-06-10] MEDS ORDERED: Vancomycin 1,250 MG in NS 0.9% 250 ml 250 ML IVPB ONE (02:05)
[2021-06-10] MEDS ORDERED: Ondansetron 4 mg VIAL 2 MG/ML 2 ml VIAL IV PRN (02:14)
[2021-06-10] MEDS ORDERED: Magnesium Hydroxide LIQ 30 ML UDC PO PRN (02:23)
[2021-06-10] MEDS ORDERED: D5W 500 ml BAG 500 ML IV SCH (03:00)
[2021-06-10] MEDS ORDERED: NS 0.9% 250 ml 250 ML ONE (03:33)
[2021-06-10] MEDS: D5W 1000 ml BAG 1,000 ML IV SCH ×3 (04:23→18:23)
[2021-06-10 06:43] LABS: ABS Lymphocytes 0.5 10^3/ul (1.0-4.8); ABS Monocytes 0.5 10^3/ul (0-0.8); ABS Neutrophils 7.1 10^3/ul (1.5-7.7); Eosinophil % 0.3 %; Hematocrit 30 % (35-47); Hemoglobin 9.4 g/dL (12.0-16.0); Lymphocyte % 6.3 %; Mean Corpuscular HGB Conc 32 g/dL (31-36); Mean Corpuscular Hemoglobin 29 pg (27-31); Mean Corpuscular Volume 92 fL (80-97); Mean Platelet Volume 9.8 fL (7.4-10.4); Platelet Count 132 10^3/uL (150-450); Red Cell Distribution Width 17 % (10-15); White Blood Count 8.2 10^3/uL (3.5-10.8)
[2021-06-10 06:46] LABS: Albumin 2.5 g/dL (3.2-5.2); Albumin/Globulin Ratio 0.9 (1-3); C Reactive Protein 6.64 mg/L (<8.01); Calcium 7.6 mg/dL (8.6-10.3); EGFR African American 60.5 (>60); Globulin 2.8 g/dL (2-4); Potassium 4.2 mmol/L (3.5-5.0); Total Bilirubin 0.3 mg/dL (0.2-1.0); Total Protein 5.3 g/dL (6.4-8.9)
[2021-06-10] MEDS ORDERED: Albuterol/Ipratropium NEB.SOL (2.5/0.5 MG) 3 ML NEB.SOLN INH PRN (07:13)
[2021-06-10] MEDS ORDERED: Isosorbide Mononit ER 30mg TAB PO SCH (09:00)
[2021-06-10] MEDS: CMC:Dorzolamide/Timolol OPTH (NF) 10 ML BOT BOTH EYES SCH ×2 (10:50→20:28)
[2021-06-10] MEDS: Multivitamins/Minerals TAB PO SCH (10:54)
[2021-06-10] MEDS: LIDOCAINE 4% TOPICAL SCH (10:54)
[2021-06-10] MEDS: Heparin 5000 UNITS/ML 1 mL VIAL SUBCUT SCH ×2 (13:37→20:26)
[2021-06-10] MEDS ORDERED: Lactated Ringers 500 ml BAG 500 ML IV ONE (14:07)
[2021-06-10] MEDS: Cefepime 2 GM in Dextrose 2 GM/50 ML BAG IV SCH (15:59)
[2021-06-10 16:36] LABS: Urine Appearance Clear; Urine Bilirubin Negative (Negative); Urine Blood Negative (Negative); Urine Color Yellow; Urine Glucose 1+(50 mg/dL) (Negative); Urine Ketones Negative (Negative); Urine Nitrite Negative (Negative); Urine Protein Negative (Negative); Urine Specific Gravity 1.021 (1.002-1.030); Urine Urobilinogen Negative (Negative)
[2021-06-10] MEDS: Latanoprost 0.005% 2.5 ml BTL LEFT EYE SCH (17:53)
[2021-06-10] MEDS: Senna TAB 8.6 mg TAB PO SCH (20:28)
[2021-06-11] MEDS: Cefepime 2 GM in Dextrose 2 GM/50 ML BAG IV SCH (03:36)
[2021-06-11] MEDS: Vancomycin 1,250 MG in NS 0.9% 250 ml 250 ML IVPB SCH (04:07)
[2021-06-11] MEDS: Heparin 5000 UNITS/ML 1 mL VIAL SUBCUT SCH ×3 (04:17→23:11)
[2021-06-11 05:59] LABS: ABS Lymphocytes 0.5 10^3/ul (1.0-4.8); ABS Monocytes 0.5 10^3/ul (0-0.8); Eosinophil % 0.1 %; Hematocrit 25 % (35-47); Hemoglobin 8.3 g/dL (12.0-16.0); Lymphocyte % 3.7 %; Mean Corpuscular HGB Conc 32 g/dL (31-36); Mean Corpuscular Hemoglobin 29 pg (27-31); Mean Corpuscular Volume 89 fL (80-97); Mean Platelet Volume 9.3 fL (7.4-10.4); Platelet Count 145 10^3/uL (150-450); Red Blood Count 2.86 10^6 /uL (3.70-4.87); Red Cell Distribution Width 17 % (10-15); White Blood Count 13.1 10^3/uL (3.5-10.8)
[2021-06-11 06:20] LABS: Albumin 2.7 g/dL (3.2-5.2); Albumin/Globulin Ratio 0.9 (1-3); Calcium 8.5 mg/dL (8.6-10.3); EGFR Non-African American 62.8 (>60); Magnesium 1.4 mg/dL (1.9-2.7); Total Bilirubin 0.4 mg/dL (0.2-1.0); Total Protein 5.7 g/dL (6.4-8.9)
[2021-06-11 08:42] LABS: C Reactive Protein 154.53 mg/L (<8.01); Phosphorus 2.7 mg/dL (2.5-5.0)
[2021-06-11] MEDS ORDERED: Magnesium Sulf 4 GM/100 ML IV 4,000 MG/100 ML BAG IVPB ONE (09:00)
[2021-06-11] MEDS: CMC:Dorzolamide/Timolol OPTH (NF) 10 ML BOT BOTH EYES SCH ×2 (10:03→23:10)
[2021-06-11] MEDS: Multivitamins/Minerals TAB PO SCH (10:53)
[2021-06-11] MEDS: LIDOCAINE 4% TOPICAL SCH (10:53)
[2021-06-11 11:11] LABS: PCO2 Arterial 41 mmHg (35-45); PO2 Arterial 85 mmHg (80-100)
[2021-06-11] MEDS ORDERED: Piperacillin/Tazobac ADVAN 3.375 GM in NS 0.9% 100 ml BAG 100 ML IV ONE (13:30)
[2021-06-11] MEDS ORDERED: Perflutren Lipid Microsphere 3 ML VIAL ONE (13:36)
[2021-06-11] MEDS ORDERED: Zosyn per Pharmacy NOTE FOLLOW UP SCH (14:00)
[2021-06-11] MEDS ORDERED: NS 0.9% 1000 ml BAG 1,000 ML IV ONE (14:53)
[2021-06-11] MEDS ORDERED: Levofloxacin 750 MG IVPREMIX 750 MG/150 ML BAG IVPB SCH (15:00)
[2021-06-11] MEDS: Latanoprost 0.005% 2.5 ml BTL LEFT EYE SCH (16:47)
[2021-06-11] MEDS: ZOSYN 3.375 GM Q8H per EXTENDED INFUSION IV SCH (22:48)
[2021-06-11] MEDS: Lidocaine Patch REMOVE PATCH PATCH OFF SCH (23:08)
[2021-06-11] MEDS: Senna TAB 8.6 mg TAB PO SCH (23:08)
[2021-06-12] MEDS: ZOSYN 3.375 GM Q8H per EXTENDED INFUSION IV SCH ×3 (03:21→21:29)
[2021-06-12] MEDS ORDERED: Morphine 2 MG/ML SYRINGE IV ONE ×2 (04:00→04:12)
[2021-06-12] MEDS ORDERED: Furosemide 40 mg/4 ml IV VIAL IV ONE (04:11)
[2021-06-12 04:18] LABS: PCO2 Arterial 37 mmHg (35-45); PO2 Arterial 67 mmHg (80-100)
[2021-06-12] MEDS: Heparin 5000 UNITS/ML 1 mL VIAL SUBCUT SCH ×3 (06:43→22:07)
[2021-06-12] MEDS ORDERED: Buffered Lidocaine 1% SYRIN 1 ml INTRADERM ONE (07:12)
[2021-06-12] MEDS: Multivitamins/Minerals TAB PO SCH (08:33)
[2021-06-12 08:37] LABS: Urine Appearance Clear; Urine Bilirubin Negative (Negative); Urine Blood 1+ (Negative); Urine Color Colorless; Urine Glucose Negative (Negative); Urine Ketones Negative (Negative); Urine Nitrite Negative (Negative); Urine Protein Negative (Negative); Urine Specific Gravity 1.006 (1.002-1.030); Urine Urobilinogen Negative (Negative)
[2021-06-12 08:50] LABS: Urine Bacteria 1+ (Absent); Urine Red Blood Cell Trace(0-2/hpf) (Absent); Urine Squamous Epithelial Cell Present (Absent); Urine White Blood Cell Trace(0-5/hpf) (Absent)
[2021-06-12] MEDS: CMC:Dorzolamide/Timolol OPTH (NF) 10 ML BOT BOTH EYES SCH ×2 (09:13→20:34)
[2021-06-12] MEDS: Vancomycin 1,250 MG in NS 0.9% 250 ml 250 ML IVPB SCH (09:13)
[2021-06-12] MEDS: Lidocaine PATCH 5% PATCH TRANSDERM SCH (09:14)
[2021-06-12] MEDS ORDERED: Famotidine IV 10 MG/ML 2 ml VIAL (20 mg) IV SLOW PU ONE (09:43)
[2021-06-12 11:21] LABS: ABS Eosinophils 0.1 10^3/ul (0-0.6); ABS Lymphocytes 0.5 10^3/ul (1.0-4.8); ABS Monocytes 0.6 10^3/ul (0-0.8); ABS Neutrophils 9.7 10^3/ul (1.5-7.7); Eosinophil % 0.9 %; Hematocrit 23 % (35-47); Hemoglobin 7.6 g/dL (12.0-16.0); Lymphocyte % 4.8 %; Mean Corpuscular HGB Conc 33 g/dL (31-36); Mean Corpuscular Hemoglobin 30 pg (27-31); Mean Corpuscular Volume 88 fL (80-97); Mean Platelet Volume 9.6 fL (7.4-10.4); Platelet Count 128 10^3/uL (150-450); Red Blood Count 2.56 10^6 /uL (3.70-4.87); Red Cell Distribution Width 18 % (10-15); White Blood Count 10.9 10^3/uL (3.5-10.8)
[2021-06-12 11:58] LABS: Ferritin 533.5 ng/mL (11-307)
[2021-06-12 12:11] LABS: Albumin 2.7 g/dL (3.2-5.2); Albumin/Globulin Ratio 0.8 (1-3); C Reactive Protein 160.9 mg/L (<8.01); Calcium 8.6 mg/dL (8.6-10.3); EGFR African American 65.5 (>60); EGFR Non-African American 54.1 (>60); Globulin 3.2 g/dL (2-4); Phosphorus 2.6 mg/dL (2.5-5.0); Potassium 3.5 mmol/L (3.5-5.0); Total Bilirubin 0.5 mg/dL (0.2-1.0); Total Protein 5.9 g/dL (6.4-8.9)
[2021-06-12] MEDS ORDERED: Furosemide 40 mg/4 ml IV VIAL IV SLOW PU ONE (14:28)
[2021-06-12] MEDS: Saline FLUSH-PERIPHERAL 10 ML SYRINGE IV FLUSH SCH (16:55)
[2021-06-12 16:59] LABS: Calcium 8.9 mg/dL (8.6-10.3); EGFR African American 63.3 (>60); EGFR Non-African American 52.3 (>60); Magnesium 1.9 mg/dL (1.9-2.7); Phosphorus 2.6 mg/dL (2.5-5.0); Potassium 3.2 mmol/L (3.5-5.0)
[2021-06-12] MEDS: KCL 20 MEQ/100 ML IVPREMIX 20 MEQ/100 ML BAG IV SCH ×3 (17:34→22:35)
[2021-06-12] MEDS: Latanoprost 0.005% 2.5 ml BTL LEFT EYE SCH (17:35)
[2021-06-12] MEDS ORDERED: Magnesium Sulfate IV 1GM/100ML 1 GM/100 ML BAG IV ONE (17:40)
[2021-06-12] MEDS: Senna TAB 8.6 mg TAB PO SCH (20:35)
[2021-06-12] MEDS: Lidocaine Patch REMOVE PATCH PATCH OFF SCH (22:05)
[2021-06-12] MEDS ORDERED: Dextrose 50% Syringe 50 ml 25 GM/50 ML SYRINGE IV PUSH PRN (22:38)
[2021-06-13] MEDS: Saline FLUSH-PERIPHERAL 10 ML SYRINGE IV FLUSH SCH ×3 (01:47→17:22)
[2021-06-13] MEDS ORDERED: Furosemide 40 mg/4 ml IV VIAL IV SLOW PU ONE (03:42)
[2021-06-13] MEDS: ZOSYN 3.375 GM Q8H per EXTENDED INFUSION IV SCH ×2 (03:59→15:23)
[2021-06-13] MEDS: Heparin 5000 UNITS/ML 1 mL VIAL SUBCUT SCH ×3 (05:47→20:46)
[2021-06-13] MEDS ORDERED: Vancomycin Trough Check NOTE FOLLOW UP ONE (06:00)
[2021-06-13 06:14] LABS: Hematocrit 22 % (35-47); Hemoglobin 7.3 g/dL (12.0-16.0); Mean Corpuscular HGB Conc 33 g/dL (31-36); Mean Corpuscular Hemoglobin 29 pg (27-31); Mean Corpuscular Volume 88 fL (80-97); Mean Platelet Volume 9.3 fL (7.4-10.4); Platelet Count 139 10^3/uL (150-450); Red Blood Count 2.54 10^6 /uL (3.70-4.87); Red Cell Distribution Width 18 % (10-15); White Blood Count 11.7 10^3/uL (3.5-10.8)
[2021-06-13 06:28] LABS: Calcium 8.9 mg/dL (8.6-10.3); EGFR African American 61.9 (>60); EGFR Non-African American 51.1 (>60); Potassium 3.5 mmol/L (3.5-5.0)
[2021-06-13 06:45] LABS: Vancomycin Trough 15.8 mcg/mL
[2021-06-13] MEDS: Vancomycin 1,250 MG in NS 0.9% 250 ml 250 ML IVPB SCH (07:06)
[2021-06-13] MEDS: CMC:Dorzolamide/Timolol OPTH (NF) 10 ML BOT BOTH EYES SCH ×2 (07:59→20:47)
[2021-06-13 08:12] LABS: Magnesium 1.9 mg/dL (1.9-2.7); Phosphorus 2.2 mg/dL (2.5-5.0)
[2021-06-13] MEDS ORDERED: Magnesium Sulfate IV 1GM/100ML 1 GM/100 ML BAG IV ONE (08:44)
[2021-06-13] MEDS ORDERED: Potassium Phosphate IV 15 MMOLE in NS 0.9% 250 ml 250 ML IVPB ONE (09:00)
[2021-06-13] MEDS: KCL 20 MEQ/100 ML IVPREMIX 20 MEQ/100 ML BAG IV SCH ×2 (09:28→11:11)
[2021-06-13] MEDS: Multivitamins/Minerals TAB PO SCH (09:49)
[2021-06-13] MEDS: Lidocaine PATCH 5% PATCH TRANSDERM SCH (09:51)
[2021-06-13] MEDS: Latanoprost 0.005% 2.5 ml BTL LEFT EYE SCH (19:18)
[2021-06-13] MEDS: Senna TAB 8.6 mg TAB PO SCH (20:46)
[2021-06-13] MEDS: Lidocaine Patch REMOVE PATCH PATCH OFF SCH (20:50)
[2021-06-14] MEDS: Saline FLUSH-PERIPHERAL 10 ML SYRINGE IV FLUSH SCH ×3 (00:54→17:25)
[2021-06-14] MEDS: ZOSYN 3.375 GM Q8H per EXTENDED INFUSION IV SCH ×2 (02:54→16:27)
[2021-06-14] MEDS: Vancomycin 1,250 MG in NS 0.9% 250 ml 250 ML IVPB SCH (05:25)
[2021-06-14] MEDS: Heparin 5000 UNITS/ML 1 mL VIAL SUBCUT SCH (05:25)
[2021-06-14 05:41] LABS: Hematocrit 20 % (35-47); Hemoglobin 6.6 g/dL (12.0-16.0); Mean Corpuscular HGB Conc 32 g/dL (31-36); Mean Corpuscular Hemoglobin 29 pg (27-31); Mean Corpuscular Volume 88 fL (80-97); Mean Platelet Volume 9.6 fL (7.4-10.4); Platelet Count 128 10^3/uL (150-450); Red Blood Count 2.32 10^6 /uL (3.70-4.87); Red Cell Distribution Width 18 % (10-15); White Blood Count 11.4 10^3/uL (3.5-10.8)
[2021-06-14 05:57] LABS: Calcium 8.4 mg/dL (8.6-10.3); EGFR African American 62.5 (>60); EGFR Non-African American 51.7 (>60); Magnesium 1.8 mg/dL (1.9-2.7); Potassium 3.4 mmol/L (3.5-5.0)
[2021-06-14] MEDS ORDERED: Magnesium Sulfate 2 gm BAG 2 GM/50 ML BAG IVPB ONE (07:12)
[2021-06-14] MEDS: Lidocaine PATCH 5% PATCH TRANSDERM SCH (07:48)
[2021-06-14] MEDS: Multivitamins/Minerals TAB PO SCH (07:52)
[2021-06-14] MEDS: CMC:Dorzolamide/Timolol OPTH (NF) 10 ML BOT BOTH EYES SCH ×2 (07:54→20:38)
[2021-06-14] MEDS ORDERED: Furosemide 40 mg/4 ml IV VIAL IV ONE (08:09)
[2021-06-14 08:31] LABS: C Reactive Protein 174.56 mg/L (<8.01)
[2021-06-14] MEDS: KCL 20 MEQ/100 ML IVPREMIX 20 MEQ/100 ML BAG IV SCH ×2 (09:01→11:40)
[2021-06-14 09:38] LABS: Albumin 2.6 g/dL (3.2-5.2); Albumin/Globulin Ratio 0.9 (1-3); Direct Bilirubin 0.1 mg/dL (0.03-0.18); Indirect Bilirubin 0.4 mg/dL (0.3-1.0); Total Bilirubin 0.5 mg/dL (0.2-1.0); Total Protein 5.6 g/dL (6.4-8.9)
[2021-06-14 15:53] LABS: Hematocrit 27 % (35-47); Hemoglobin 8.7 g/dL (12.0-16.0); Mean Corpuscular HGB Conc 32 g/dL (31-36); Mean Corpuscular Hemoglobin 29 pg (27-31); Mean Corpuscular Volume 88 fL (80-97); Mean Platelet Volume 10.1 fL (7.4-10.4); Platelet Count 146 10^3/uL (150-450); Red Blood Count 3.06 10^6 /uL (3.70-4.87); Red Cell Distribution Width 18 % (10-15); White Blood Count 13.9 10^3/uL (3.5-10.8)
[2021-06-14] MEDS: Latanoprost 0.005% 2.5 ml BTL LEFT EYE SCH (17:25)
[2021-06-14 19:31] LABS: Adenovirus Undetected (Undetected); Bordetella parapertussis Undetected (Undetected); Bordetella pertussis Undetected (Undetected); Chlamydophila pneumoniae Undetected (Undetected); Coronavirus 229E Undetected (Undetected); Coronavirus HKU1 Undetected (Undetected); Coronavirus NL63 Undetected (Undetected); Coronavirus OC43 Undetected (Undetected); Human Metapneumovirus Undetected (Undetected); Human Rhinovirus/Enterovirus Undetected (Undetected); Influenza A Undetected (Undetected); Influenza B Undetected (Undetected); Mycoplasmoides pneumoniae Undetected (Undetected); Parainfluenza Virus 1 Undetected (Undetected); Parainfluenza Virus 2 Undetected (Undetected); Parainfluenza Virus 3 Undetected (Undetected); Parainfluenza Virus 4 Undetected (Undetected); Respiratory Syncytial Virus Undetected (Undetected); Specimen Source NASOPHARYNGEAL SWAB
[2021-06-14] MEDS ORDERED: Furosemide 20 mg/2 ml IV VIAL IV SLOW PU ONE (20:00)
[2021-06-14] MEDS: Senna TAB 8.6 mg TAB PO SCH (20:29)
[2021-06-14] MEDS: Lidocaine Patch REMOVE PATCH PATCH OFF SCH (20:37)
[2021-06-15] MEDS: Saline FLUSH-PERIPHERAL 10 ML SYRINGE IV FLUSH SCH ×3 (01:09→17:46)
[2021-06-15] MEDS: ZOSYN 3.375 GM Q8H per EXTENDED INFUSION IV SCH ×2 (04:03→16:28)
[2021-06-15 04:32] LABS: Hematocrit 28 % (35-47); Mean Corpuscular HGB Conc 33 g/dL (31-36); Mean Corpuscular Hemoglobin 29 pg (27-31); Mean Corpuscular Volume 89 fL (80-97); Platelet Count 143 10^3/uL (150-450); Red Blood Count 3.12 10^6 /uL (3.70-4.87); Red Cell Distribution Width 18 % (10-15); White Blood Count 14.1 10^3/uL (3.5-10.8)
[2021-06-15 04:53] LABS: Calcium 9.2 mg/dL (8.6-10.3); EGFR African American 50.4 (>60); EGFR Non-African American 41.6 (>60); Phosphorus 3.5 mg/dL (2.5-5.0); Potassium 3.9 mmol/L (3.5-5.0)
[2021-06-15] MEDS: Vancomycin 1,250 MG in NS 0.9% 250 ml 250 ML IVPB SCH (07:48)
[2021-06-15] MEDS: CMC:Dorzolamide/Timolol OPTH (NF) 10 ML BOT BOTH EYES SCH ×2 (08:02→21:50)
[2021-06-15] MEDS: Multivitamins/Minerals TAB PO SCH (08:03)
[2021-06-15] MEDS: Lidocaine PATCH 5% PATCH TRANSDERM SCH (08:03)
[2021-06-15] MEDS: Collagenase 250 units/gm OINT 1 tube TOPICAL SCH (14:54)
[2021-06-15] MEDS: Latanoprost 0.005% 2.5 ml BTL LEFT EYE SCH (16:49)
[2021-06-15] MEDS ORDERED: Insulin GLARGINE 100 un/ml 10 ml VIAL SUBCUT SCH (21:00)
[2021-06-15] MEDS: Senna TAB 8.6 mg TAB PO SCH (21:52)
[2021-06-15] MEDS: Lidocaine Patch REMOVE PATCH PATCH OFF SCH (22:02)
[2021-06-16] MEDS: Saline FLUSH-PERIPHERAL 10 ML SYRINGE IV FLUSH SCH ×3 (02:17→17:12)
[2021-06-16] MEDS ORDERED: Vancomycin Trough Check NOTE FOLLOW UP ONE (06:00)
[2021-06-16] MEDS: Multivitamins/Minerals TAB PO SCH (08:30)
[2021-06-16] MEDS: Collagenase 250 units/gm OINT 1 tube TOPICAL SCH ×2 (08:31→21:57)
[2021-06-16] MEDS: CMC:Dorzolamide/Timolol OPTH (NF) 10 ML BOT BOTH EYES SCH ×2 (08:31→21:43)
[2021-06-16] MEDS: Lidocaine PATCH 5% PATCH TRANSDERM SCH ×2 (08:31→19:00)
[2021-06-16 10:04] LABS: Hematocrit 26 % (35-47); Hemoglobin 8.3 g/dL (12.0-16.0); Mean Corpuscular HGB Conc 32 g/dL (31-36); Mean Corpuscular Hemoglobin 28 pg (27-31); Mean Corpuscular Volume 90 fL (80-97); Mean Platelet Volume 9.2 fL (7.4-10.4); Platelet Count 139 10^3/uL (150-450); Red Blood Count 2.93 10^6 /uL (3.70-4.87); Red Cell Distribution Width 17 % (10-15); White Blood Count 11.8 10^3/uL (3.5-10.8)
[2021-06-16 10:20] LABS: Calcium 8.9 mg/dL (8.6-10.3); EGFR African American 52.3 (>60); EGFR Non-African American 43.2 (>60); Potassium 3.8 mmol/L (3.5-5.0)
[2021-06-16 10:33] LABS: Vancomycin Trough 15.9 mcg/mL
[2021-06-16 11:35] LABS: ABS Eosinophils 0.1 10^3/ul (0-0.6); ABS Lymphocytes 1.1 10^3/ul (1.0-4.8); ABS Monocytes 0.6 10^3/ul (0-0.8); Eosinophil % 0.5 %; Lymphocyte % 9.1 %; Nucleated Red Blood Cells % 0.1
[2021-06-16] MEDS ORDERED: Vancomycin per Pharmacy 1 EA NOTE FOLLOW UP SCH (14:00)
[2021-06-16] MEDS: Cefepime 2 GM in Dextrose 2 GM/50 ML BAG IV SCH (14:20)
[2021-06-16] MEDS: Vancomycin 1,250 MG in NS 0.9% 250 ml 250 ML IVPB SCH (15:14)
[2021-06-16] MEDS: Latanoprost 0.005% 2.5 ml BTL LEFT EYE SCH (17:12)
[2021-06-16 17:44] LABS: Glucose Confirmatory 414 mg/dL (70-100)
[2021-06-16] MEDS ORDERED: Insulin GLARGINE 100 un/ml 10 ml VIAL SUBCUT SCH ×2 (21:00)
[2021-06-16] MEDS ORDERED: Dextrose 50% Syringe 50 ml 25 GM/50 ML SYRINGE IV PUSH PRN (21:27)
[2021-06-16] MEDS: Lidocaine Patch REMOVE PATCH PATCH OFF SCH (21:45)
[2021-06-16] MEDS: Senna TAB 8.6 mg TAB PO SCH (21:48)
[2021-06-17] MEDS: Cefepime 2 GM in Dextrose 2 GM/50 ML BAG IV SCH ×2 (03:20→13:17)
[2021-06-17] MEDS: Saline FLUSH-PERIPHERAL 10 ML SYRINGE IV FLUSH SCH ×2 (03:20→08:19)
[2021-06-17] MEDS: Multivitamins/Minerals TAB PO SCH (08:16)
[2021-06-17] MEDS: Collagenase 250 units/gm OINT 1 tube TOPICAL SCH (08:17)
[2021-06-17] MEDS: CMC:Dorzolamide/Timolol OPTH (NF) 10 ML BOT BOTH EYES SCH ×2 (08:17→20:40)
[2021-06-17] MEDS: Lidocaine PATCH 5% PATCH TRANSDERM SCH (08:17)
[2021-06-17 08:30] LABS: Hematocrit 24 % (35-47); Hemoglobin 7.9 g/dL (12.0-16.0); Mean Corpuscular HGB Conc 32 g/dL (31-36); Mean Corpuscular Hemoglobin 29 pg (27-31); Mean Corpuscular Volume 91 fL (80-97); Mean Platelet Volume 9.3 fL (7.4-10.4); Platelet Count 148 10^3/uL (150-450); Red Cell Distribution Width 17 % (10-15); White Blood Count 10.9 10^3/uL (3.5-10.8)
[2021-06-17 08:45] LABS: Calcium 8.7 mg/dL (8.6-10.3); EGFR African American 55.5 (>60); EGFR Non-African American 45.9 (>60); Magnesium 1.9 mg/dL (1.9-2.7); Potassium 4.1 mmol/L (3.5-5.0)
[2021-06-17] MEDS: Vancomycin 1,250 MG in NS 0.9% 250 ml 250 ML IVPB SCH (14:09)
[2021-06-17] MEDS ORDERED: Dextrose 50% Syringe 50 ml 25 GM/50 ML SYRINGE IV PUSH PRN (16:16)
[2021-06-17] MEDS: Latanoprost 0.005% 2.5 ml BTL LEFT EYE SCH (17:06)
[2021-06-17] MEDS: Insulin GLARGINE 100 un/ml 10 ml VIAL SUBCUT SCH (20:40)
[2021-06-17] MEDS: Senna TAB 8.6 mg TAB PO SCH (20:41)
[2021-06-17] MEDS: Lidocaine Patch REMOVE PATCH PATCH OFF SCH (20:42)
[2021-06-18] MEDS: Cefepime 2 GM in Dextrose 2 GM/50 ML BAG IV SCH ×2 (01:31→13:28)
[2021-06-18 07:11] LABS: Hematocrit 26 % (35-47); Hemoglobin 8.8 g/dL (12.0-16.0); Mean Corpuscular HGB Conc 33 g/dL (31-36); Mean Corpuscular Hemoglobin 29 pg (27-31); Mean Corpuscular Volume 88 fL (80-97); Mean Platelet Volume 9.3 fL (7.4-10.4); Platelet Count 185 10^3/uL (150-450); Red Blood Count 2.99 10^6 /uL (3.70-4.87); Red Cell Distribution Width 17 % (10-15); White Blood Count 10.3 10^3/uL (3.5-10.8)
[2021-06-18 07:30] LABS: Calcium 8.7 mg/dL (8.6-10.3); EGFR African American 51.3 (>60); EGFR Non-African American 42.4 (>60); Magnesium 1.9 mg/dL (1.9-2.7); Potassium 3.8 mmol/L (3.5-5.0)
[2021-06-18 07:47] LABS: ABS Eosinophils 0.1 10^3/ul (0-0.6); ABS Lymphocytes 1.5 10^3/ul (1.0-4.8); ABS Monocytes 1.1 10^3/ul (0-0.8); ABS Neutrophils 7.5 10^3/ul (1.5-7.7); Eosinophil % 1.2 %; Nucleated Red Blood Cells % 0.2
[2021-06-18] MEDS: Lidocaine PATCH 5% PATCH TRANSDERM SCH (08:29)
[2021-06-18] MEDS: Multivitamins/Minerals TAB PO SCH (08:29)
[2021-06-18] MEDS: Collagenase 250 units/gm OINT 1 tube TOPICAL SCH (08:31)
[2021-06-18] MEDS: CMC:Dorzolamide/Timolol OPTH (NF) 10 ML BOT BOTH EYES SCH ×2 (08:31→21:45)
[2021-06-18] MEDS ORDERED: Lactated Ringers 1000 ml BAG 1,000 ML IV ONE (13:48)
[2021-06-18] MEDS: Vancomycin 1,250 MG in NS 0.9% 250 ml 250 ML IVPB SCH (14:02)
[2021-06-18 14:47] LABS: C Reactive Protein 34.03 mg/L (<8.01)
[2021-06-18] MEDS: Latanoprost 0.005% 2.5 ml BTL LEFT EYE SCH (17:07)
[2021-06-18] MEDS: Insulin GLARGINE 100 un/ml 10 ml VIAL SUBCUT SCH (21:43)
[2021-06-18] MEDS: Senna TAB 8.6 mg TAB PO SCH (21:45)
[2021-06-18] MEDS: Lidocaine Patch REMOVE PATCH PATCH OFF SCH (21:53)
[2021-06-19] MEDS: Cefepime 2 GM in Dextrose 2 GM/50 ML BAG IV SCH ×2 (03:42→17:31)
[2021-06-19 07:07] LABS: Hematocrit 28 % (35-47); Hemoglobin 9.5 g/dL (12.0-16.0); Mean Corpuscular HGB Conc 33 g/dL (31-36); Mean Corpuscular Hemoglobin 29 pg (27-31); Mean Corpuscular Volume 88 fL (80-97); Mean Platelet Volume 9.2 fL (7.4-10.4); Platelet Count 219 10^3/uL (150-450); Red Blood Count 3.22 10^6 /uL (3.70-4.87); Red Cell Distribution Width 17 % (10-15); White Blood Count 11.8 10^3/uL (3.5-10.8)
[2021-06-19 07:18] LABS: Calcium 8.5 mg/dL (8.6-10.3); EGFR African American 63.1 (>60); EGFR Non-African American 52.1 (>60); Magnesium 1.8 mg/dL (1.9-2.7); Potassium 3.9 mmol/L (3.5-5.0)
[2021-06-19] MEDS: CMC:Dorzolamide/Timolol OPTH (NF) 10 ML BOT BOTH EYES SCH ×2 (08:24→20:56)
[2021-06-19] MEDS: Multivitamins/Minerals TAB PO SCH (08:35)
[2021-06-19] MEDS: Lidocaine PATCH 5% PATCH TRANSDERM SCH (08:44)
[2021-06-19] MEDS: Collagenase 250 units/gm OINT 1 tube TOPICAL SCH (12:03)
[2021-06-19] MEDS: Latanoprost 0.005% 2.5 ml BTL LEFT EYE SCH (17:30)
[2021-06-19] MEDS: Vancomycin 1,250 MG in NS 0.9% 250 ml 250 ML IVPB SCH (17:31)
[2021-06-19] MEDS ORDERED: Amoxicillin/Clavul 500/125 TAB (Augmentin 500 mg tab) PO ONE (18:49)
[2021-06-19] MEDS: Senna TAB 8.6 mg TAB PO SCH (20:55)
[2021-06-19] MEDS: Amoxicillin/Clavul 500/125 TAB (Augmentin 500 mg tab) PO SCH (20:55)
[2021-06-19] MEDS: Insulin GLARGINE 100 un/ml 10 ml VIAL SUBCUT SCH (21:05)
[2021-06-19] MEDS: Lidocaine Patch REMOVE PATCH PATCH OFF SCH (23:17)
[2021-06-20] MEDS: CMC:Dorzolamide/Timolol OPTH (NF) 10 ML BOT BOTH EYES SCH (07:48)
[2021-06-20] MEDS: Multivitamins/Minerals TAB PO SCH (07:55)
[2021-06-20] MEDS: Amoxicillin/Clavul 500/125 TAB (Augmentin 500 mg tab) PO SCH (07:55)
[2021-06-20] MEDS: Lidocaine PATCH 5% PATCH TRANSDERM SCH (08:08)
[2021-06-20] MEDS: Collagenase 250 units/gm OINT 1 tube TOPICAL SCH (09:48)
[2021-06-20 11:54] VITALS: BP 131/44
[2021-06-20] MEDS ORDERED: Vancomycin Trough Check NOTE FOLLOW UP ONE (13:30)
== END 2021-06-20 13:15 | DRG 871 ==
LOC: ED 22:44 → SUATTDRO 06-10 02:14 → MED 06-10 02:14 → ICU 06-12 06:14 → MED 06-15 10:12
PROVIDERS: ADMIT Student in an Organized Health Care Education/Training Program; ATTEND Internal Medicine

== ENCOUNTER 2021-08-23 15:55 | Observation (INO) ==
[2021-08-23 17:09] LABS: ABS Basophils 0.1 10^3/ul (0-0.2); ABS Eosinophils 0.1 10^3/ul (0-0.6); ABS Monocytes 0.9 10^3/ul (0-0.8); ABS Neutrophils 6.7 10^3/ul (1.5-7.7); Eosinophil % 1.4 %; Hematocrit 32 % (35-47); Hemoglobin 10.7 g/dL (12.0-16.0); Lymphocyte % 11.8 %; Mean Corpuscular HGB Conc 33 g/dL (31-36); Mean Corpuscular Hemoglobin 29 pg (27-31); Mean Corpuscular Volume 88 fL (80-97); Mean Platelet Volume 9.9 fL (7.4-10.4); Nucleated Red Blood Cells % 0.1; Platelet Count 203 10^3/uL (150-450); Red Blood Count 3.63 10^6 /uL (3.70-4.87); Red Cell Distribution Width 16 % (10-15); White Blood Count 8.9 10^3/uL (3.5-10.8)
[2021-08-23 17:28] LABS: C Reactive Protein 10.51 mg/L (<8.01); Calcium 9.2 mg/dL (8.6-10.3); Magnesium 1.4 mg/dL (1.9-2.7); Potassium 4.2 mmol/L (3.5-5.0)
[2021-08-23] MEDS ORDERED: Magnesium Sulf 4 GM/100 ML IV 4,000 MG/100 ML BAG IVPB ONE (18:11)
[2021-08-23] MEDS ORDERED: Vancomycin 1,500 MG in NS 0.9% 250 ml 250 ML IVPB ONE (21:58)
[2021-08-24] MEDS ORDERED: Dextrose 50% Syringe 50 ml 25 GM/50 ML SYRINGE IV PUSH PRN (00:12)
[2021-08-24] MEDS ORDERED: NS 0.9% 250 ml 250 ML ONE (00:46)
[2021-08-24] MEDS ORDERED: Vancomycin per Pharmacy 1 EA NOTE FOLLOW UP SCH (01:00)
[2021-08-24 01:57] LABS: Rapid COVID-19 Molecular Undetected (Undetected)
[2021-08-24] MEDS: Heparin 5000 UNITS/ML 1 mL VIAL SUBCUT SCH ×2 (06:31→13:30)
[2021-08-24 06:41] LABS: ABS Basophils 0.1 10^3/ul (0-0.2); ABS Eosinophils 0.1 10^3/ul (0-0.6); ABS Lymphocytes 1.1 10^3/ul (1.0-4.8); ABS Monocytes 0.9 10^3/ul (0-0.8); ABS Neutrophils 5.9 10^3/ul (1.5-7.7); Eosinophil % 1.8 %; Hematocrit 30 % (35-47); Hemoglobin 10.3 g/dL (12.0-16.0); Lymphocyte % 13.9 %; Mean Corpuscular HGB Conc 34 g/dL (31-36); Mean Corpuscular Hemoglobin 30 pg (27-31); Mean Corpuscular Volume 88 fL (80-97); Mean Platelet Volume 10.1 fL (7.4-10.4); Platelet Count 186 10^3/uL (150-450); Red Cell Distribution Width 16 % (10-15); White Blood Count 8.2 10^3/uL (3.5-10.8)
[2021-08-24 06:59] LABS: Albumin/Globulin Ratio 0.9 (1-3); C Reactive Protein 10.74 mg/L (<8.01); Calcium 9.1 mg/dL (8.6-10.3); Globulin 3.2 g/dL (2-4); Potassium 3.5 mmol/L (3.5-5.0); Total Bilirubin 0.3 mg/dL (0.2-1.0); Total Protein 6.2 g/dL (6.4-8.9)
[2021-08-24] MEDS ORDERED: Collagenase 250 units/gm OINT 1 tube TOPICAL SCH (09:00)
[2021-08-24] MEDS ORDERED: DALBAVANCIN HCL (NF) 500 MG/25 ML VIAL IVPB ONE (09:40)
[2021-08-24] MEDS ORDERED: DALVANCE 1500 MG IV ONCE (for CrCl >/= 30 or regular HD) IVPB ONE (10:30)
[2021-08-24 14:42] VITALS: BP 153/64
== END 2021-08-24 14:37 ==
LOC: ED 15:55 → EDHOLD 23:56 → INTOOBSV 23:56 → EDHOLD 08-24 14:36
PROVIDERS: ADMIT Internal Medicine; ATTEND Internal Medicine